=== PATIENT | female | born 1995 | race Caucasian/White ===

== ENCOUNTER 2020-02-26 23:43 | Emergency (ER) | payer MEDICAID ==
[~2020-02-26] VITALS: Ht 137.2 cm; Wt 103.4 kg
--- OUTSIDE RECORDS SUMMARY | ~2020-02-26 | XMS | Encounter Summary ---
Demographics + + + | Address | [address] | | | [place] [address] | + + + | Home Phone | | + + + | Preferred Language | Unknown | + + + | Marital Status | Single | + + + | Yarsanism Affiliation | Unknown | + + + | Race | Unknown | + + + | Ethnic Group | Unknown | + + + Author + + + | Author | [facility] | | | and [place] | + + + | Organization | [facility] | | | and [place] | + + + | Address | Unknown | + + + | Phone | Unavailable | + + + Support + + + + + | Name | Relationship | Address | Phone | + + + + + | Paty Grass | ECON | [address] | | | | | [place] | | | | | [address] | | + + + + + Care Team Providers + +------+ + | Care Catalyst Plant Supervisor Name | Role | Phone | + +------+ + | Angel Talamantes MD | PCP | | + +------+ + Reason for Visit + + + | Reason | Comments | + + + | Emesis During | | | | | + + + | Vaginal Bleed | | | | | + + + Encounter Details +--------+ + + + + | Date | Type | Department | Care Team | Description | +--------+ + + + + | 07/06/ | Emergency | [facility] Alvar[facility] Ste[facility] | Threatened | | 2018 | | [facility] | Hilton Kearney MD | in first trimester | | | | CENTER [address] | [address] | (Primary Dx) | | | | [place] | [place] | | | | | [address] | [id number] | | | | | [phone] | | | +--------+ + + + + Social History + + + +--------+------+ | Tobacco Use | Types | Packs/Day | Years | Date | | | | | Used | | + + + +--------+------+ | Current Some Day | Cigarettes | 0.5 | 3 | | | Smoker | | | | | + + + +--------+------+ + +---+---+---+ | Smokeless Tobacco: | | | | | Never Used | | | | + +---+---+---+ + + +---------+ + | Alcohol Use | Drinks/Week | oz/Week | Comments | + + +---------+ + | No | | | occasionally, not | | | | | since | + + +---------+ + + + + | Sex Assigned at | Date Recorded | | | | + + + | Not on file | | + + + + + + + | Job Start Date | Occupation | Industry | + + + + | Not on file | Not on file | Not on file | + + + + + + + + | Travel History | Travel Start | Travel End | + + + + + + | No recent travel history available. | + + documented as of this encounter Last Filed Vital Signs + + + + + | Vital Sign | Reading | Time Taken | Comments | + + + + + | Blood Pressure | 127/76 | 07/06/2018 7:59 PM | | | | | PDT | | + + + + + | Pulse | 90 | 07/06/2018 7:59 PM | | | | | PDT | | + + + + + | Temperature | 37.2 C (99 F) | 07/06/2018 7:59 PM | | | | | PDT | | + + + + + | Respiratory Rate | 16 | 07/06/2018 7:59 PM | | | | | PDT | | + + + + + | Oxygen Saturation | 99% | 07/06/2018 7:59 PM | | | | | PDT | | + + + + + | Inhaled Oxygen | - | - | | | Concentration | | | | + + + + + | Weight | 98 kg (216 lb) | 07/06/2018 7:59 PM | | | | | PDT | | + + + + + | Height | 149.9 cm (4' 11") | 07/06/2018 7:59 PM | | | | | PDT | | + + + + + | Body Mass Index | 43.63 | 07/06/2018 7:59 PM | | | | | PDT | | + + + + + documented in this encounter Discharge Instructions Instructions Alvarado Steward MD - 07/06/2018Return for severe worsening vagina l bleeding. Return for severe abdominal pain and cramping. Please try to drink plenty flui ds and stay hydrated. documented in this encounter Medications at Time of Discharge + + + +---------+ + + | Medication | Sig | Dispensed | Refills | Start | End Date | | | | | | Date | | + + + +---------+ + + | FLUTICASONE | by Nasal route. | | 0 | | | | FUROATE NA | | | | | 9 | + + + +---------+ + + | ondansetron | Take 1 tablet by | 15 | 0 | 07/06/20 | | | (ZOFRAN ODT) 4 mg | mouth every 6 hours | tablet | | 18 | 9 | | disintegrating | as needed. | | | | | | tablet | | | | | | + + + +---------+ + + | vitamin | Take 1 tablet by | 90 | 3 | 06/24/20 | | | w/ferrous | mouth Daily. | tablet | | 18 | 9 | | fumarate-folic acid | | | | | | | ( PLUS) 27-1 | | | | | | | mg tablet | | | | | | + + + +---------+ + + documented as of this encounter Plan of Treatment Not on filedocumented as of this encounter Visit Diagnoses + + | Diagnosis | + + | Threatened in first trimester - Primary Threatened , unspecified as | | to episode of care | + + documented in this encounter Administered Medications + + + +------+------+------+ | Medication Order | MAR | Action | Dose | Rate | Site | | | Action | Date | | | | + + + +------+------+------+ | ondansetron (ZOFRAN ODT) | Dispense | 07/06/20 | 4 mg | | | | disintegrating tablet (ED | to Home | 18 8:56 | | | | | homepack) 4 mg 4 mg, Oral, EVERY | | PM PDT | | | | | 6 HOURS PRN, Nausea, Vomiting, | | | | | | | Starting 07/06/18 at 2053, | | | | | | | Dispense for home use., | | | | | | + + + +------+------+------+ +---+---+ | | | +---+---+ documented in this encounter
--- OUTSIDE RECORDS SUMMARY | ~2020-02-26 | XMS | Encounter Summary ---
Demographics + + + | Address | [address] | | | [place] [address] | + + + | Home Phone | | + + + | Preferred Language | Unknown | + + + | Marital Status | Single | + + + | Confucianist Affiliation | Unknown | + + + | Race | Unknown | + + + | Ethnic Group | Unknown | + + + Author + + + | Author | [facility] | | | and [place] | + + + | Organization | [facility] | | | and [place] | + + + | Address | Unknown | + + + | Phone | Unavailable | + + + Support + + + + + | Name | Relationship | Address | Phone | + + + + + | Paty Grass | ECON | [address] | | | | | [place] | | | | | [address] | | + + + + + Care Team Providers + +------+ + | Care Salon Receptionist Name | Role | Phone | + +------+ + | No, Physician | PCP | Unavailable | + +------+ + Reason for Visit Auth/Cert +--------+--------+ + + + + | Status | Reason | Specialty | Diagnoses / | Referred By | Referred To | | | | | Procedures | Contact | Contact | +--------+--------+ + + + + | Closed | | | Diagnoses | | [facility] | | | | | Chronic | | [address] | | | | | tonsillitis | | [address] | | | | | Chronic | | [place], | | | | | tonsillitis | | [place] [address] | | | | | Procedures | | Phone: | | | | | [place] REMOVAL | | | | | | | OF | | Fax: | | | | | TONSILS,12+ | | [phone] | | | | | Y/O | | | | | | | TONSILLECTOM | | | | | | | Y AND | | | | | | | ADENOIDECTOM | | | | | | | Y | | | +--------+--------+ + + + + Encounter Details +--------+ + + + + | Date | Type | Department | Care Team | Description | +--------+ + + + + | 05/15/ | Anesthesia | [facility] | Wicho Rodríguez | | | 2014 | Event | [facility] | MD [place] [address] | | | | | [address] | [address] [place] | | | | | [place], [place] | [address] | | | | | [address] | | | | | | | | | +--------+ + + + + Anesthesia Record + + + + + | Procedure Name | Responsible | Anesthesia Start | Anesthesia Stop Time | | | Anesthesiologist | Time | | + + + + + | Tonsillectomy (N/A | Wicho Rodríguez, | 05/15/15 0842 | 05/15/15 0946 | | Mouth) | MD | | | + + + + + +----+---+ + + | Da | T | Event | Comment | | te | i | | | | | m | | | | | e | | | +----+---+ + + | 07 | 0 | An Checkout | Pre-use anesthesia machine/equipment checkout. | | /2 | 8 | | | | 9/ | 3 | | | | 20 | 5 | | | | 15 | | | | +----+---+ + + | | 0 | An Start | Reassessment prior to anesthesia induction/procedure. | | | 8 | | | | | 4 | | | | | 2 | | | +----+---+ + + | | 0 | an irma now | | | | 8 | | | | | 4 | | | | | 5 | | | +----+---+ + + | | 0 | AN | Per surgeon request | | | 8 | Antibiotic | | | | 4 | declined | | | | 6 | | | +----+---+ + + | | 0 | Preoxygenat | | | | 8 | ed | | | | 5 | | | | | 1 | | | +----+---+ + + | | 0 | An RSI | | | | 8 | | | | | 5 | | | | | 3 | | | +----+---+ + + | | 0 | An | | | | 8 | Intubation | | | | 5 | | | | | 4 | | | +----+---+ + + | | 0 | Pre-Procedu | | | | 8 | ral Timeout | | | | 5 | Completed | | | | 8 | | | +----+---+ + + | | 0 | an irma now | Begin | | | 8 | | | | | 5 | | | | | 9 | | | +----+---+ + + | | 0 | | | | | 9 | | | | | 2 | | | | | 3 | | | +----+---+ + + | | 0 | Oropharynx | | | | 9 | Suctioned | | | | 3 | | | | | 6 | | | +----+---+ + + | | 0 | Extubated | | | | 9 | Deep | | | | 3 | | | | | 7 | | | +----+---+ + + | | 0 | an irma now | PACU | | | 9 | | | | | 4 | | | | | 0 | | | +----+---+ + + | | 0 | An Stop | Patient handed off to recovery nurse. | | | 4 | | | | | 6 | | | +----+---+ + + +------+ | Meds | +------+ + +---------+ | Name | Total | + +---------+ | propofol | 200 mg | + +---------+ | fentaNYL | 100 mcg | + +---------+ | succinylcholine | 100 mg | + +---------+ | ondansetron | 4 mg | + +---------+ | dexamethasone | 8 mg | + +---------+ | midazolam | 2 mg | + +---------+ | meperidine | 25 mg | + +---------+ | lactated ringers (LR) infusion | 500 mL | + +---------+ | lactated ringers (LR) infusion | 400 mL | + +---------+ + + | Name | + + | N2O Flow Rate (L/Min) | + + | O2 Flow Rate (L/Min) | + + | Insp O2 | + + | Exp SEV | + + | Air Flow Rate (L/Min) | + + + + | No blood administrations on file. | + + +--------+ + + + | Type | Details | Placement | Removal | +--------+ + + + | [READ | 05/15/15; 827; healing within | 05/15/15 08 by | 05/15/15 1145 by | | ONLY] | expectations; 05/15/15; 1145 | Anish Sanchez RN | Dacia Stephenson RN | | | | | | | Periph | | | | | eral | | | | | IV - | | | | | Single | | | | | Lumen | | | | | | | | | +--------+ + + + | Airway | Placement Date: 05/15/15; | 05/15/15853 by | 05/15/15 09 by | | | Placement Time: 08; Mask | Wicho P Skaarup, | Wicho P Skaarup, | | | Ventilation: EZ; Successful | MD | MD | | | Technique: video scope (Farzaneh | | | | | Laryngoscope); Laryngoscope Blade | | | | | Size: 3; Attempts: 1; Airway | | | | | Type: endotracheal, oral, cuffed; | | | | | Size: 6; Airway Tube Secured At: | | | | | 0.18 m (7.09"); Tube Reference | | | | | Point: lip; Trauma: none; Other | | | | | Equipment: stylette; Placement | | | | | Check: verified by capnography, | | | | | verified by auscultation; Placed | | | | | By: Anesthesiologist; Removal: | | | | | per protocol; Removal Date: | | | | | 05/15/15; Removal Time: 936 | | | +--------+ + + + | Read | 05/15/15; 910; throat; 01/10/19 | 05/15/15 0911 by | 01/10/19 1342 by | | only - | (Completed/Removed by Utility); | Julisa Cuevas RN | User Epic | | | 1342 (Completed/Removed by | | | | [employer]isi | Utility) | | | | on | | | | +--------+ + + + documented in this encounter Social History + +-------+ +--------+------+ | Tobacco Use | Types | Packs/Day | Years | Date | | | | | Used | | + +-------+ +--------+------+ | Never Assessed | | | | | + +-------+ +--------+------+ + + + | Sex Assigned at [...] filedocumented as of this encounter Visit Diagnoses Not on filedocumented in this encounter Administered Medications + +--------+ +------+------+------+ | Medication Order | MAR | Action | Dose | Rate | Site | | | Action | Date | | | | + +--------+ +------+------+------+ | dexamethasone (DECADRON) 10 | Given | 05/15/20 | 8 mg | | | | mg/mL injection Intravenous, | | 15 8:46 | | | | | PRN, Starting Wed05/15/15 at | | AM PDT | | | | | 0846, Anesthesia Intra-op | | | | | | + +--------+ +------+------+------+ +---+---+ | | | +---+---+ + +-------+ +---------+---+---+ | fentaNYL injection | Given | 05/15/20 | 100 mcg | | | | Intravenous, PRN, Pain, Starting | | 15 8:46 | | | | | Wed05/15/15 at 0846, Anesthesia | | AM PDT | | | | | Intra-op | | | | | | + +-------+ +---------+---+---+ +---+---+ | | | +---+---+ + +---------+ +---+---+---+ | lactated ringers (LR) infusion | New Bag | 05/15/20 | | | | | at 10-100 mL/hr, Intravenous, | | 15 8:45 | | | | | CONTINUOUS, Starting 05/15/15 | | AM PDT | | | | | at 0815, TKO., Pre-op | | | | | | + +---------+ +---+---+---+ +---+---+ | | | +---+---+ + +-------+ +-------+---+---+ | meperidine (DEMEROL) 25 mg/mL | Given | 05/15/20 | 25 mg | | | | injection Intravenous, PRN, | | 15 9:20 | | | | | Pain, Starting 05/15/15 at | | AM PDT | | | | | 0920, Anesthesia Intra-op | | | | | | + +-------+ +-------+---+---+ +---+---+ | | | +---+---+ + +-------+ +------+---+---+ | midazolam (VERSED) 1 mg/mL | Given | 05/15/20 | 2 mg | | | | injection Intravenous, PRN, | | 15 8:46 | | | | | Anxiety, Starting Wed05/15/15 at | | AM PDT | | | | | 0846, Anesthesia Intra-op | | | | | | + +-------+ +------+---+---+ +---+---+ | | | +---+---+ + +-------+ +------+---+---+ | ondansetron (ZOFRAN) injection | Given | 05/15/20 | 4 mg | | | | Intravenous, PRN, Nausea, | | 15 8:46 | | | | | Vomiting, Starting Wed05/15/15 at | | AM PDT | | | | | 0846, Anesthesia Intra-op | | | | | | + +-------+ +------+---+---+ +---+---+ | | | +---+---+ + +-------+ +--------+---+---+ | propofol (DIPRIVAN) injection | Given | 05/15/20 | 200 mg | | | | Intravenous, PRN, Starting Wed | | 15 8:53 | | | | | 05/15/15 at 0853, Anesthesia | | AM PDT | | | | | Intra-op | | | | | | + +-------+ +--------+---+---+ +---+---+ | | | +---+---+ + +-------+ +--------+---+---+ | succinylcholine (ANECTINE) | Given | 05/15/20 | 100 mg | | | | injection Intravenous, PRN, | | 15 8:53 | | | | | Starting 05/15/15 at 0853, | | AM PDT | | | | | Anesthesia Intra-op | | | | | | + +-------+ +--------+---+---+ +---+---+ | | | +---+---+ documented in this encounter
--- OUTSIDE RECORDS SUMMARY | ~2020-02-26 | XMS | Encounter Summary ---
Demographics + + + | Address | [address] | | | [place] [address] | + + + | Home Phone | | + + + | Preferred Language | Unknown | + + + | Marital Status | Single | + + + | Scientologist Affiliation | Unknown | + + + | Race | Unknown | + + + | Ethnic Group | Unknown | + + + Author + + + | Author | [facility] | | | and [place] | + + + | Organization | [facility] | | | and [place] | + + + | Address | Unknown | + + + | Phone | Unavailable | + + + Support + + + + + | Name | Relationship | Address | Phone | + + + + + | Paty Grass | ECON | [address] | | | | | [place] | | | | | [address] | | + + + + + Care Team Providers + +------+ + | Care Lead Developer Name | Role | Phone | + +------+ + | No, Physician | PCP | Unavailable | + +------+ + Reason for Visit + + + | Reason | Comments | + + + | Suicidal | | + + + Encounter Details +--------+ + + + + | Date | Type | Department | Care Team | Description | +--------+ + + + + | 03/31/ | Emergency | [facility] | [facility] | Suicidal ideation | | 2018 | | [facility] | [facility] [address] | (Primary Dx); | | | | CENTER [address] | [address] [place] | Depression, | | | | [place], [place] | [place] [address] | unspecified | | | | [address] | [phone] | depression type | | | | [phone] | | | +--------+ + + + + Social History + + + +--------+------+ | Tobacco Use | Types | Packs/Day | Years | Date | | | | | Used | | + + + +--------+------+ | Current Some Day | Cigarettes | 1 | 3 | | | Smoker | | | | | + + + +--------+------+ + +---+---+---+ | Smokeless Tobacco: | | | | | Never Used | | | | + +---+---+---+ + + +---------+ + | Alcohol Use | Drinks/Week | oz/Week | Comments | + + +---------+ + | Yes | | | occasionally | + + +---------+ + + + [...] + + + | Blood Pressure | 123/78 | 03/31/2018 7:59 PM | | | | | PDT | | + + + + + | Pulse | 78 | 03/31/2018 7:59 PM | | | | | PDT | | + + + + + | Temperature | 37.2 C (98.9 F) | 03/31/2018 7:59 PM | | | | | PDT | | + + + + + | Respiratory Rate | 16 | 03/31/2018 7:59 PM | | | | | PDT | | + + + + + | Oxygen Saturation | 100% | 03/31/2018 7:59 PM | | | | | PDT | | + + + + + | Inhaled Oxygen | - | - | | | Concentration | | | | + + + + + | Weight | - | - | | + + + + + | Height | - | - | | + + + + + | Body Mass Index | - | - | | + + + + + documented in this encounter Discharge Instructions AttachmentsThe following attachments cannot be sent through Care Everywhere.Depression, Wha t Can Cause (Eritrean)Suicide, Recognizing Warning Signs in Yourself ([place]rit[place]an)Suicide, Recogn izing Warning Signs in Others ([place]an)documented in this encounter Medications at Time of Discharge + + + +---------+--------+ + | Medication | Sig | Dispensed | Refills | Start | End Date | | | | | | Date | | + + + +---------+--------+ + | metoprolol | Take 25 mg by mouth | | 0 | | | | tartrate (LOPRESSOR) | Daily. | | | | 8 | | 50 mg tablet | | | | | | + + + +---------+--------+ + | omeprazole | Take 20 mg by mouth | | 0 | | | | (PRILOSEC) 20 mg | every morning | | | | 8 | | capsule | (before breakfast). | | | | | + + + +---------+--------+ + | oxyCODONE | Take 5 mg by mouth | | 0 | | | | (ROXICODONE) 5 mg | every 4 hours as | | | | 8 | | tablet | needed for Pain. | | | | | + + + +---------+--------+ + | venlafaxine | Take 150 mg by mouth | | 0 | | | | (EFFEXOR XR) 150 mg | daily (with | | | | 8 | | 24 hr tablet | breakfast). | | | | | + + + +---------+--------+ + documented as of this encounter Plan of Treatment Not on filedocumented as of this encounter Procedures + +--------+ + + + | Procedure Name | Priori | Date/Time | Associated Diagnosis | Comments | | | ty | | | | + +--------+ + + + | EXTRA TRACY MANCINI | Routin | 03/31/2018 | | Results for this | | TUBE | e | 8:54 PM | | procedure are in the | | | | PDT | | results section. | + +--------+ + + + | CBC WITH | STAT | 03/31/2018 | | Results for this | | DIFFERENTIAL | | 8:54 PM | | procedure are in the | | | | PDT | | results section. | + +--------+ + + + | , SERUM, | STAT | 03/31/2018 | | Results for this | | QUAL | | 8:54 PM | | procedure are in the | | | | PDT | | results section. | + +--------+ + + + | TSH | STAT | 03/31/2018 | | Results for this | | | | 8:54 PM | | procedure are in the | | | | PDT | | results section. | + +--------+ + + + | ALCOHOL | STAT | 03/31/2018 | | Results for this | | | | 8:54 PM | | procedure are in the | | | | PDT | | results section. | + +--------+ + + + | ACETAMINOPHEN LEVEL | STAT | 03/31/2018 | | Results for this | | | | 8:54 PM | | procedure are in the | | | | PDT | | results section. | + +--------+ + + + | SALICYLATE LEVEL | STAT | 03/31/2018 | | Results for this | | | | 8:54 PM | | procedure are in the | | | | PDT | | results section. | + +--------+ + + + | COMPREHENSIVE | STAT | 03/31/2018 | | Results for this | | METABOLIC PANEL | | 8:54 PM | | procedure are in the | | | | PDT | | results section. | + +--------+ + + + | URINALYSIS WITH | STAT | 03/31/2018 | | Results for this | | MICROSCOPIC WITH | | 8:47 PM | | procedure are in the | | CULTURE IF INDICATED | | PDT | | results section. | + +--------+ + + + | DRUGS OF ABUSE, | STAT | 03/31/2018 | | Results for this | | SCREEN, URINE | | 8:47 PM | | procedure are in the | | | | PDT | | results section. | + +--------+ + + + documented in this encounter Results Extra Lavender Top Tube (03/31/2018 8:54 PM PDT) + +-------+ + + + | Component | Value | Ref Range | Performed | Pathologist | | | | | At | Signature | + +-------+ + + + | Extra | Done | | [facility] | | | Lavender | | | [facility] | | | Top Tube | | | MEDICAL | | | | | | CENTER - | | | | | | LABORATORY | | + +-------+ + + + + + | Specimen | + + | Blood | + + + + + + + | Performing | Address | City/State/Zipcode | Phone Number | | Organization | | | | + + + + + | [facility] | [address] | [place] | [phone] | | [facility] | | [address] | | | - LABORATORY | | | | + + + + + , Serum, Qual (03/31/2018 8:54 PM PDT) + + + + + + | Component | Value | Ref Range | Performed | Pathologist | | | | | At | Signature | + + + + + + | hCG Screen, | Negative | Negative | [facility] | | | Serum | | | [facility] | | | | | | MEDICAL | | | | | | CENTER - | | | | | | LABORATORY | | + + + + + + + + | Specimen | + + | Blood | + + + + + + + | Performing | Address | City/State/Zipcode | Phone Number | | Organization | | | | + + + + + | [facility] | [address] | [place] | [phone] | | [facility] | | [address] | | | - LABORATORY | | | | + + + + + TSH (03/31/2018 8:54 PM PDT) + + + + + + | Component | Value | Ref Range | Performed | Pathologist | | | | | At | Signature | + + + + + + | TSH | 1.45Comment: This is a | 0.45 - 5.33 | [facility] | | | | third generation TSH | uIU/mL | [facility] | | | | test. | | MEDICAL | | | | | | CENTER - | | | | | | LABORATORY | | + + + + + + + + | Specimen | + + | Blood | + + + + + + + | Performing | Address | City/State/Zipcode | Phone Number | | Organization | | | | + + + + + | [facility] | [address] | [place] | [phone] | | [facility] | | [address] | | | - LABORATORY | | | | + + + + + Ethanol (03/31/2018 8:54 PM PDT) + +-------+ + + + | Component | Value | Ref Range | Performed | Pathologist | | | | | At | Signature | + +-------+ + + + | ALCOHOL, | <5 | <400 mg/dL | [facility] | | | SERUM/PLASM | | | [facility] | | | A | | | MEDICAL | | | | | | CENTER - | | | | | | LABORATORY | | + +-------+ + + + + + | Specimen | + + | Blood | + + + + + + + | Performing | Address | City/State/Zipcode | Phone Number | | Organization | | | | + + + + + | [facility] | [address] | [place] | [phone] | | [facility] | | [address] | | | - LABORATORY | | | | + + + + + Salicylate Level (03/31/2018 8:54 PM PDT) + +-------+ + + + | Component | Value | Ref Range | Performed | Pathologist | | | | | At | Signature | + +-------+ + + + | Salicylate | <4.0 | <30.0 mg/dL | [facility] | | | Level | | | [facility] | | | | | | MEDICAL | | | | | | CENTER - | | | | | | LABORATORY | | + +-------+ + + + + + | Specimen | + + | Blood | + + + + + + + | Performing | Address | City/State/Zipcode | Phone Number | | Organization | | | | + + + + + | [facility] | [address] | [place] | [phone] | | [facility] | | [address] | | | - LABORATORY | | | | + + + + + Acetaminophen Level (03/31/2018 8:54 PM PDT) + +-------+ + + + | Component | Value | Ref Range | Performed | Pathologist | | | | | At | Signature | + +-------+ + + + | Acetaminoph | <10 | <10 ug/mL | [facility] | | | en Level | | | [facility] | | | | | | MEDICAL | | | | | | CENTER - | | | | | | LABORATORY | | + +-------+ + + + + + | Specimen | + + | Blood | + + + + + + + | Performing | Address | City/State/Zipcode | Phone Number | | Organization | | | | + + + + + | [facility] | [address] | [place] | [phone] | | [facility] | | [address] | | | - LABORATORY | | | | + + + + + Comprehensive Metabolic Panel (03/31/2018 8:54 PM PDT) + + + + + + | Component | Value | Ref Range | Performed | Pathologist | | | | | At | Signature | + + + + + + | Na | 139 | 136 - 149 | [facility] | | | | | mmol/L | [facility] | | | | | | MEDICAL | | | | | | CENTER - | | | | | | LABORATORY | | + + + + + + | K | 3.9 | 3.5 - 5.1 | [facility] | | | | | mmol/L | [facility] | | | | | | MEDICAL | | | | | | CENTER - | | | | | | LABORATORY | | + + + + + + | Cl | 105 | 98 - 109 mmol/L | [facility] | | | | | | [facility] | | | | | | MEDICAL | | | | | | CENTER - | | | | | | LABORATORY | | + + + + + + | CO2 | 24 | 24 - 31 mmol/L | [facility] | | | | | | [facility] | | | | | | MEDICAL | | | | | | CENTER - | | | | | | LABORATORY | | + + + + + + | Anion Gap | 10 | 3 - 16 mmol/L | [facility] | | | | | | [facility] | | | | | | MEDICAL | | | | | | CENTER - | | | | | | LABORATORY | | + + + + + + | Glucose | 86 | 70 - 109 mg/dL | [facility] | | | | | | [facility] | | | | | | MEDICAL | | | | | | CENTER - | | | | | | LABORATORY | | + + + + + + | BUN | 7 | 7 - 18 mg/dL | [facility] | | | | | | [facility] | | | | | | MEDICAL | | | | | | CENTER - | | | | | | LABORATORY | | + + + + + + | Creatinine | 0.73 | 0.60 - 1.30 | [facility] | | | | | mg/dL | [facility] | | | | | | MEDICAL | | | | | | CENTER - | | | | | | LABORATORY | | + + + + + + | eGFR if not | >60Comment: GLOMERULAR | >=60 | [facility] | | | | FILTRATION | mL/min/1.73m2 | [facility] | | | NAURUAN | RATE,ESTIMATED | | MEDICAL | | | | mL/min/1.61t9Yxwl than | | CENTER - | | | | 60 Chronic kidney | | LABORATORY | | | | disease,if found over a | | | | | | 3-month period.Less than | | | | | | 15 Kidney failureFor | | | | | | | | | | | | Americans,multiply the | | | | | | calculated GFR by 1.21. | | | | | | | | | | + + + + + + | Calcium | 9.3 | 8.3 - 10.5 | [facility] | | | | | mg/dL | [facility] | | | | | | MEDICAL | | | | | | CENTER - | | | | | | LABORATORY | | + + + + + + | Albumin | 4.1 | 3.2 - 5.0 g/dL | [facility] | | | | | | [facility] | | | | | | MEDICAL | | | | | | CENTER - | | | | | | LABORATORY | | + + + + + + | Bilirubin | 0.7Comment: This is an | 0.1 - 1.5 mg/dL | [facility] | | | Total | appended report. These | | [facility] | | | | results have been | | MEDICAL | | | | appended to a previously | | CENTER - | | | | preliminary verified | | LABORATORY | | | | report. | | | | + + + + + + | Total | 7.6 | 6.0 - 7.8 g/dL | [facility] | | | Protein | | | [facility] | | | | | | MEDICAL | | | | | | CENTER - | | | | | | LABORATORY | | + + + + + + | AST | 28Comment: This is an | 10 - 42 U/L | [facility] | | | | appended report. These | | [facility] | | | | results have been | | MEDICAL | | | | appended to a previously | | CENTER - | | | | preliminary verified | | LABORATORY | | | | report. | | | | + + + + + + | ALT | 33Comment: This is an | 6 - 45 U/L | [facility] | | | | appended report. These | | [facility] | | | | results have been | | MEDICAL | | | | appended to a previously | | CENTER - | | | | preliminary verified | | LABORATORY | | | | report. | | | | + + + + + + | Alkaline | 96Comment: This is an | 40 - 110 U/L | [facility] | | | Phosphatase | appended report. These | | [facility] | | | | results have been | | MEDICAL | | | | appended to a previously | | CENTER - | | | | preliminary verified | | LABORATORY | | | | report. | | | | + + + + + + | Globulin | 3.5 | 2.1 - 3.8 g/dL | [facility] | | | | | | [facility] | | | | | | MEDICAL | | | | | | CENTER - | | | | | | LABORATORY | | + + + + + + | Albumin/Kristel | 1.2 | 0.8 - 2.0 | [facility] | | | bulin Ratio | | | [facility] | | | | | | MEDICAL | | | | | | CENTER - | | | | | | LABORATORY | | + + + + + + | BUN/Creatin | 9.6 | | [facility] | | | ine Ratio | | | [facility] | | | | | | MEDICAL | | | | | | CENTER - | | | | | | LABORATORY | | + + + + + + + + | Specimen | + + | Blood | + + + + + + + | Performing | Address | City/State/Zipcode | Phone Number | | Organization | | | | + + + + + | [facility] | [address] | [place] | [phone] | | [facility] | | [address] | | | - LABORATORY | | | | + + + + + CBC with Differential (03/31/2018 8:54 PM PDT) + + + + + + | Component | Value | Ref Range | Performed | Pathologist | | | | | At | Signature | + + + + + + | WBC | 14.0 (H) | 4.0 - 11.0 K/uL | [facility] | | | | | | [facility] | | | | | | MEDICAL | | | | | | CENTER - | | | | | | LABORATORY | | + + + + + + | RBC | 5.45 (H) | 3.70 - 5.20 | [facility] | | | | | M/uL | [facility] | | | | | | MEDICAL | | | | | | CENTER - | | | | | | LABORATORY | | + + + + + + | Hemoglobin | 15.2 | 11.5 - 16.0 | [facility] | | | | | g/dL | [facility] | | | | | | MEDICAL | | | | | | CENTER - | | | | | | LABORATORY | | + + + + + + | Hematocrit | 45.4 | 34.0 - 47.0 % | [facility] | | | | | | [facility] | | | | | | MEDICAL | | | | | | CENTER - | | | | | | LABORATORY | | + + + + + + | MCV | 83.3 | 83.0 - 101.0 fL | [facility] | | | | | | [facility] | | | | | | MEDICAL | | | | | | CENTER - | | | | | | LABORATORY | | + + + + + + | MCH | 27.9 (L) | 28.0 - 35.0 pg | [facility] | | | | | | [facility] | | | | | | MEDICAL | | | | | | CENTER - | | | | | | LABORATORY | | + + + + + + | MCHC | 33.5 | 32.0 - 36.0 | [facility] | | | | | g/dL | [facility] | | | | | | MEDICAL | | | | | | CENTER - | | | | | | LABORATORY | | + + + + + + | RDW-CV | 15.2 (H) | <15.0 % | [facility] | | | | | | [facility] | | | | | | MEDICAL | | | | | | CENTER - | | | | | | LABORATORY | | + + + + + + | Platelet | 379 | 140 - 440 K/uL | [facility] | | | Count | | | [facility] | | | | | | MEDICAL | | | | | | CENTER - | | | | | | LABORATORY | | + + + + + + | MPV | 7.6 | fL | [facility] | | | | | | [facility] | | | [facility] | | MEDICAL | | | | | | CENTER - | | | | | | LABORATORY | | + + + + + + | % | 69.0 | 45.0 - 82.0 % | [facility] | | | Neutrophils | | | [facility] | | | | | | MEDICAL | | | | | | CENTER - | | | | | | LABORATORY | | + + + + + + | % | 20.0 | 20.0 - 45.0 % | [facility] | | | Lymphocytes | | | [facility] | | | | | | MEDICAL | | | | | | CENTER - | | | | | | LABORATORY | | + + + + + + | % Monocytes | 6.0 | 4.0 - 12.0 % | [facility] | | | | | | [facility] | | | | | | MEDICAL | | | | | | CENTER - | | | | | | LABORATORY | | + + + + + + | % | 4.3 | 0.0 - 5.0 % | [facility] | | | Eosinophils | | | [facility] | | | | | | MEDICAL | | | | | | CENTER - | | | | | | LABORATORY | | + + + + + + | % Basophils | 0.7 | 0.0 - 1.0 % | [facility] | | | | | | [facility] | | | | | | MEDICAL | | | | | | CENTER - | | | | | | LABORATORY | | + + + + + + | Absolute | 9.70 (H) | 1.80 - 8.50 | [facility] | | | Neutrophils | | K/uL | [facility] | | | | | | MEDICAL | | | | | | CENTER - | | | | | | LABORATORY | | + + + + + + | Absolute | 2.80 | 0.60 - 3.20 | [facility] | | | Lymphocytes | | K/uL | [facility] | | | | | | MEDICAL | | | | | | CENTER - | | | | | | LABORATORY | | + + + + + + | Absolute | 0.80 | 0.00 - 1.00 | [facility] | | | Monocytes | | K/uL | [facility] | | | | | | MEDICAL | | | | | | CENTER - | | | | | | LABORATORY | | + + + + + + | Absolute | 0.60 (H) | 0.00 - 0.40 | [facility] | | | Eosinophils | | K/uL | [facility] | | | | | | MEDICAL | | | | | | CENTER - | | | | | | LABORATORY | | + + + + + + | Absolute | 0.10 | 0.00 - 0.10 | [facility] | | | Basophils | | K/uL | [facility] | | | | | | MEDICAL | | | | | | CENTER - | | | | | | LABORATORY | | + + + + + + + + | Specimen | + + | Blood | + + + + + + + | Performing | Address | City/State/Zipcode | Phone Number | | Organization | | | | + + + + + | [facility] | [address] | [place] | [phone] | | [facility] | | [address] | | | - LABORATORY | | | | + + + + + Drugs of Abuse, Screen, Urine (03/31/2018 8:47 PM PDT) + + + + + + | Component | Value | Ref Range | Performed | Pathologist | | | | | At | Signature | + + + + + + | Amphetamine | Negative | Negative | [facility] | | | Screen, | | | [facility] | | | Urine | | | MEDICAL | | | | | | CENTER - | | | | | | LABORATORY | | + + + + + + | Barbiturate | Negative | Negative | [facility] | | | s Screen, | | | [facility] | | | Urine | | | MEDICAL | | | | | | CENTER - | | | | | | LABORATORY | | + + + + + + | Benzodiazep | Negative | Negative | [facility] | | | sintia | | | [facility] | | | Screen, | | | MEDICAL | | | Urine | | | CENTER - | | | | | | LABORATORY | | + + + + + + | Cannabinoid | Positive (A) | Negative | [facility] | | | s Screen, | | | [facility] | | | Urine | | | MEDICAL | | | | | | CENTER - | | | | | | LABORATORY | | + + + + + + | Cocaine | Negative | Negative | [facility] | | | Screen, | | | [facility] | | | Urine | | | MEDICAL | | | | | | CENTER - | | | | | | LABORATORY | | + + + + + + | Methadone | Negative | Negative | [facility] | | | Screen, | | | [facility] | | | Urine | | | MEDICAL | | | | | | CENTER - | | | | | | LABORATORY | | + + + + + + | Opiates | Negative | Negative | [facility] | | | Screen, | | | [facility] | | | Urine | | | MEDICAL | | | | | | CENTER - | | | | | | LABORATORY | | + + + + + + + + | Specimen | + + | Urine - Urine | | specimen obtained by | | clean catch | | procedure (specimen) | + + + + + + + | Performing | Address | City/State/Zipcode | Phone Number | | Organization | | | | + + + + + | [facility] | [address] | [place] | [phone] | | [facility] | | [address] | | | - LABORATORY | | | | + + + + + Urinalysis with Microscopic with Culture if Indicated (03/31/2018 8:47 PM PDT) + + + + + + | Component | Value | Ref Range | Performed | Pathologist | | | | | At | Signature | + + + + + + | Color, | Yellow | Light Yellow, | [facility] | | | Urine | | Yellow, Straw | [facility] | | | | | | MEDICAL | | | | | | CENTER - | | | | | | LABORATORY | | + + + + + + | Clarity | Hazy (A) | Clear | [facility] | | | | | | [facility] | | | | | | MEDICAL | | | | | | CENTER - | | | | | | LABORATORY | | + + + + + + | pH, Urine | 6.0 | 5.0 - 8.0 | [facility] | | | | | | [facility] | | | | | | MEDICAL | | | | | | CENTER - | | | | | | LABORATORY | | + + + + + + | Specific | 1.024 | 1.001 - 1.030 | [facility] | | | Ram[place], | | | [facility] | | | Urine | | | MEDICAL | | | | | | CENTER - | | | | | | LABORATORY | | + + + + + + | Protein, | Negative | Negative | [facility] | | | Urine | | | [facility] | | | | | | MEDICAL | | | | | | CENTER - | | | | | | LABORATORY | | + + + + + + | Blood, | Negative | Negative | [facility] | | | Urine | | | [facility] | | | | | | MEDICAL | | | | | | CENTER - | | | | | | LABORATORY | | + + + + + + | Glucose, | Negative | Negative | [facility] | | | Urine | | | [facility] | | | | | | MEDICAL | | | | | | CENTER - | | | | | | LABORATORY | | + + + + + + | Ketones, | Trace (A) | Negative | [facility] | | | Urine | | | [facility] | | | | | | MEDICAL | | | | | | CENTER - | | | | | | LABORATORY | | + + + + + + | Bilirubin, | Negative | Negative | [facility] | | | Urine | | | [facility] | | | | | | MEDICAL | | | | | | CENTER - | | | | | | LABORATORY | | + + + + + + | Nitrite, | Negative | Negative | [facility] | | | Urine | | | [facility] | | | | | | MEDICAL | | | | | | CENTER - | | | | | | LABORATORY | | + + + + + + | Leukocyte | Negative | Negative | [facility] | | | Esterase, | | | [facility] | | | Urine | | | MEDICAL | | | | | | CENTER - | | | | | | LABORATORY | | + + + + + + | Urobilinoge | 2.0 mg/dL (A) | 0.2 mg/dL, 1.0 | [facility] | | | n, Urine | | mg/dL, Negative | [facility] | | | | | | MEDICAL | | | | | | CENTER - | | | | | | LABORATORY | | + + + + + + | White Blood | 2-5 (A) | 0 - 2 /HPF | [facility] | | | Cells, | | | [facility] | | | Urine | | | MEDICAL | | | | | | CENTER - | | | | | | LABORATORY | | + + + + + + | Red Blood | 0-2 | 0 - 2 /HPF | [facility] | | | Cells, | | | [facility] | | | Urine | | | MEDICAL | | | | | | CENTER - | | | | | | LABORATORY | | + + + + + + | Squamous | 50-100 (A) | 0 - 2 /LPF | [facility] | | | Epithelial | | | [facility] | | | Cells, | | | MEDICAL | | | Urine | | | CENTER - | | | | | | LABORATORY | | + + + + + + | Bacteria, | 1+ (A) | Negative /HPF | [facility] | | | Urine | | | [facility] | | | | | | MEDICAL | | | | | | CENTER - | | | | | | LABORATORY | | + + + + + + | Mucus, | Present (A) | Negative /LPF | [facility] | | | Urine | | | [facility] | | | | | | MEDICAL | | | | | | CENTER - | | | | | | LABORATORY | | + + + + + + | Urine | Urine Culture Not | | [facility] | | | Comment | Indicated | | [facility] | | | | | | MEDICAL | | | | | | CENTER - | | | | | | LABORATORY | | + + + + + + + + | Specimen | + + | Urine - Urine | | specimen obtained by | | clean catch | | procedure (specimen) | + + + + + + + | Performing | Address | City/State/Zipcode | Phone Number | | Organization | | | | + + + + + | [facility] | [address] | [place] | [phone] | | [facility] | | [address] | | | - LABORATORY | | | | + + + + + documented in this encounter Visit Diagnoses + + | Diagnosis | + + | Suicidal ideation - Primary | + + | Depression, unspecified depression type | + + documented in this encounter"
--- OUTSIDE RECORDS SUMMARY | ~2020-02-26 | XMS | Encounter Summary ---
Demographics + + + | Address | [address] | | | [place] [address] | + + + | Home Phone | | + + + | Preferred Language | Unknown | + + + | Marital Status | Single | + + + | Amish Affiliation | Unknown | + + + | Race | Unknown | + + + | Ethnic Group | Unknown | + + + Author + + + | Author | [facility] | | | and [place] | + + + | Organization | [facility] | | | and [place] | + + + | Address | Unknown | + + + | Phone | Unavailable | + + + Support + + + + + | Name | Relationship | Address | Phone | + + + + + | Paty Grass | ECON | [address] | | | | | [address] | | | | | [address] | | + + + + + Care Team Providers + +------+ + | Care Tool Keeper Name | Role | Phone | + +------+ + | Angel Talamantes MD | PCP | | + +------+ + Reason for Visit + + + | Reason | Comments | + + + | Back Pain | | + + + | Urinary Pain | | + + + Encounter Details +--------+ + + + + | Date | Type | Department | Care Team | Description | +--------+ + + + + | 01/21/ | Emergency | [facility] | Hilton Donaldson | Dysuria (Primary | | 2014 - | | [facility] | MD Torsten [address] | Dx); Chronic back | | | | CENTER [address] | [address] [place] | pain | | 01/22/ | | [place], [place] | [place] [address] | | | 2014 | | [address] | [phone] | | | | | [phone] | | | +--------+ + + + + Social History + +-------+ +--------+------+ | Tobacco Use | Types | Packs/Day | Years | Date | | | | | Used | | + +-------+ +--------+------+ | Current Some Day | | 0.1 | | | | Smoker | | | | | + +-------+ +--------+------+ + +---+---+---+ | Smokeless Tobacco: | [...] + + + | Blood Pressure | 126/83 | 01/21/2015 10:49 PM | | | | | PDT | | + + + + + | Pulse | 89 | 01/21/2015 10:49 PM | | | | | PDT | | + + + + + | Temperature | 37.3 C (99.1 F) | 01/21/2015 10:49 PM | | | | | PDT | | + + + + + | Respiratory Rate | 16 | 01/21/2015 10:49 PM | | | | | PDT | | + + + + + | Oxygen Saturation | 99% | 01/21/2015 10:49 PM | | | | | PDT | | + + + + + | Inhaled Oxygen | - | - | | | Concentration | | | | + + + + + | Weight | 88.5 kg (195 lb) | 01/21/2015 10:49 PM | | | | | PDT | | + + + + + | Height | 147.3 cm (4' 9.99") | 01/21/2015 10:49 PM | | | | | PDT | | + + + + + | Body Mass Index | 40.77 | 01/21/2015 10:49 PM | | | | | PDT | | + + + + + documented in this encounter Discharge Instructions AttachmentsThe following attachments cannot be sent through Care Everywhere.BACK AND NECK GENERAL BHAVYA (AMHARIC)DYSURIA (AMHARIC)documented in this encounter Medications at Time of Discharge + + + +---------+ + + | Medication | Sig | Dispensed | Refills | Start | End Date | | | | | | Date | | + + + +---------+ + + | indomethacin | Take 1 capsule by | 20 | 0 | 01/22/20 | | | (INDOCIN) 25 mg | mouth 2 times daily | capsule | | 15 | 5 | | capsule | (with breakfast & | | | | | | | dinner). | | | | | + + + +---------+ + + documented as of this encounter Plan of Treatment Not on filedocumented as of this encounter Procedures + +--------+ + + + | Procedure Name | Priori | Date/Time | Associated Diagnosis | Comments | | | ty | | | | + +--------+ + + + | C. TRACHOMATIS AND | Routin | 01/22/2015 | | Results for this | | N. GONORRHOEAE, NAAT | e | 12:02 AM | | procedure are in the | | ([facility]) | | PDT | | results section. | + +--------+ + + + | XR LUMBAR SPINE 2 OR | STAT | 01/21/2015 | | Results for this | | 3 VW | | 11:36 PM | | procedure are in the | | | | PDT | | results section. | + +--------+ + + + | XR THORACIC SPINE 2 | STAT | 01/21/2015 | | Results for this | | VW | | 11:35 PM | | procedure are in the | | | | PDT | | results section. | + +--------+ + + + | POCT URINALYSIS, | STAT | 01/21/2015 | | Results for this | | AUTO WITH CONF | | 11:23 PM | | procedure are in the | | | | PDT | | results section. | + +--------+ + + + | POCT TEST, | STAT | 01/21/2015 | | Results for this | | URINE, QUAL | | 11:19 PM | | procedure are in the | | | | PDT | | results section. | + +--------+ + + + | ED INFORMATION | Routin | 01/21/2015 | | Results for this | | EXCHANGE | e | 10:10 PM | | procedure are in the | | | | PDT | | results section. | + +--------+ + + + documented in this encounter Results C. trachomatis and N. gonorrhoeae, NAAT ([facility]) (01/22/2015 12:02 AM PDT) + + + + + + | Component | Value | Ref Range | Performed | Pathologist | | | | | At | Signature | + + + + + + | SPECSOURCE | See CommentsComment: | | REFERENCE | | | | Urine, Clean Catch | | [facility] | | + + + + + + | Chlamydia | See CommentsComment: Not | NOTDET | REFERENCE | | | trachomatis | DetectedA result of Not | | [facility] | | | PCR | Detected does not rule | | | | | | out the presence of | | | | | | PCRinhibitors present in | | | | | | the specimen or levels | | | | | | of Chlamydia | | | | | | trachomatisbelow the | | | | | | limit of detection for | | | | | | this assay. | | | | + + + + + + | Neisseria | See CommentsComment: Not | NOTDET | REFERENCE | | | gonorrhoeae | DetectedA result of Not | | [facility] | | | PCR | Detected does not rule | | | | | | out the presence of | | | | | | PCRinhibitors present in | | | | | | the specimen or levels | | | | | | of Neisseria | | | | | | gonorrhoeaebelow the | | | | | | limit of detection of | | | | | | the assay.Testing | | | | | | Performed: [facility], [address] | | | | | [address], [place] | | | | | | [address] | | | | + + + + + + + + | Specimen | + + | Urine specimen | | (specimen) - Urine, | | Clean Catch | + + + + + + + | Performing | Address | City/State/Zipcode | Phone Number | | Organization | | | | + + + + + | [facility] | [address] | [place] [address] | [phone] | + + + + + XR Lumbar Spine 2 or 3 Vw (01/21/2015 11:36 PM PDT) + + | Specimen | + + | | + + + + + | Narrative | Performed At | + + + | XR LUMBAR SPINE 2 OR 3 VW 01/21/2015 11:36 PM HISTORY: BACK PAIN | [facility] | | URINARY PAIN. COMPARISON: 09/21/2011. FINDINGS: There are no | | | acute osseous findings. Vertebral body height are preserved with no | | | evidence for compression fractures. Disc height are maintained. Facet | | | joints are intact. Visualized ribs and pelvic osseous structures show | | | no acute findings. There is moderate stool retention. IMPRESSION | | | - No acute findings. Dictated and Signed by: Jose Maddox MD | | | Electronically signed: 01/22/2015 8:47 AM | | + + + + + | Procedure Note | + + | Vasiliy, Zack Results In - 01/22/2015 8:50 AM PDT XR LUMBAR SPINE 2 OR 3 VW 01/21/2015 | | 11:36 PMHISTORY: BACK PAINURINARY PAIN.COMPARISON: 09/21/2011.FINDINGS:There are no acute | | osseous findings. Vertebral body height are preserved with noevidence for compression | | fractures. Disc height are maintained. Facet joints areintact. Visualized ribs and | | pelvic osseous structures show no acute findings.There is moderate stool | | retention.IMPRESSION -No acute findings.Dictated and Signed by: Jose Maddox MD | | Electronically signed: 01/22/2015 8:47 AM | |FINDINGS: | |There are no acute osseous findings. Vertebral body height are preserved with no | |evidence for compression fractures. Disc height are maintained. Facet joints are | |intact. Visualized ribs and pelvic osseous structures show no acute findings. | |There is moderate stool retention. | | | |IMPRESSION - | |No acute findings. | | | |Dictated and Signed by: Jose Maddox MD | | Electronically signed: 01/22/2015 8:47 AM | + + + +---------+ + + | Performing | Address | City/State/Zipcode | Phone Number | | Organization | | | | + +---------+ + + | [facility] | | | | + +---------+ + + XR Thoracic Spine 2 Vw (01/21/2015 11:35 PM PDT) + + | Specimen | + + | | + + + + + | Narrative | Performed At | + + + | XR THORACIC SPINE 2 VW 01/21/2015 11:35 PM HISTORY: BACK PAIN | [facility] | | URINARY PAIN. COMPARISON: None. FINDINGS: There is mild left | | | scoliosis of the lumbar spine. Bone mineralization is normal. | | | Vertebral body height are preserved with no evidence for compression | | | fractures. Disc height are maintained. Facet joints are intact. | | | Visualized chest and abdomen show no acute findings. | | | IMPRESSION - No acute findings, mild left scoliosis. Dictated and | | | Signed by: Jose Maddox MD Electronically signed: 01/22/2015 8:46 | | | AM | | + + + + + | Procedure Note | + + | Vasiliy, Rad Results In - 01/22/2015 8:49 AM PDT XR THORACIC SPINE 2 VW 01/21/2015 11:35 | | PMHISTORY: BACK PAINURINARY PAIN.COMPARISON: None.FINDINGS:There is mild left scoliosis | | of the lumbar spine. Bone mineralization is normal.Vertebral body height are preserved | | with no evidence for compression fractures.Disc height are maintained. Facet joints are | | intact. Visualized chest andabdomen show no acute findings. IMPRESSION -No acute | | findings, mild left scoliosis.Dictated and Signed by: Jose Maddox MD Electronically | | signed: 01/22/2015 8:46 AM | |FINDINGS: | |There is mild left scoliosis of the lumbar spine. Bone mineralization is normal. | |Vertebral body height are preserved with no evidence for compression fractures. | |Disc height are maintained. Facet joints are intact. Visualized chest and | |abdomen show no acute findings. | | | |IMPRESSION - | |No acute findings, mild left scoliosis. | | | |Dictated and Signed by: Jose Maddox MD | | Electronically signed: 01/22/2015 8:46 AM | + + + +---------+ + + | Performing | Address | City/State/Zipcode | Phone Number | | Organization | | | | + +---------+ + + | [facility] | | | | + +---------+ + + POCT Urinalysis Dipstick Automated (01/21/2015 11:23 PM PDT) + + + + + + | Component | Value | Ref Range | Performed | Pathologist | | | | | At | Signature | + + + + + + | Color, UA, | Dark Yellow (A) | Yellow, Light | | | | POC | | Yellow | | | + + + + + + | Clarity, | Slightly Hazy | | | | | UA, POC | | | | | + + + + + + | Glucose, | Negative | Negative | | | | UA, POC | | | | | + + + + + + | Bilirubin, | Negative | Negative | | | | UA, POC | | | | | + + + + + + | Ketones, | Negative | Negative, 100 | | | | UA, POC | | mg/dL | | | + + + + + + | Specific | 1.025 | 1.001 - 1.030 | | | | Cade, | | | | | | UA, POC | | | | | + + + + + + | Blood, UA, | Negative | Negative | | | | POC | | | | | + + + + + + | pH, UA, POC | 7.0 | 5.0, 6.0, 7.0, | | | | | | 8.0, 5.5, 6.5, | | | | | | 7.5 | | | + + + + + + | Protein, | Trace (A) | Negative | | | | UA, POC | | | | | + + + + + + | Urobilinoge | 2.0 E.U./dL (A) | 0.2, Negative, | | | | n, UA, POC | | Normal, < 0.2 | | | | | | mg/dL, 1 mg/dL, | | | | | | < 0.2 E.U./dl, | | | | | | 1.0 E.U./dL, | | | | | | 0.2 mg/dL | | | + + + + + + | Nitrite, | Negative | | | | | UA, POC | | | | | + + + + + + | Leukocyte | Negative | Negative | | | | Esterase, | | | | | | UA, POC | | | | | + + + + + + | Reducing | | | | | | Substances, | | | | | | Urine | | | | | + + + + + + | Bilirubin | | Negative | | | | Confirmatio | | | | | | n by | | | | | | Ictotest, | | | | | | Urine | | | | | + + + + + + | Remark | | | | | + + + + + + + + | Specimen | + + | Urine specimen | | (specimen) | + + POCT Test, Urine, Qual (01/21/2015 11:19 PM PDT) + + + + + + | Component | Value | Ref Range | Performed | Pathologist | | | | | At | Signature | + + + + + + | | Negative | | | | | Test, | | | | | | Urine, POC | | | | | + + + + + + | Specific | 1.025 | | | | | Cade, | | | | | | POC | | | | | + + + + + + | Internal QC | Acceptable | | | | + + + + + + | Lot Number | [id number] | | | | + + + + + + | Expiration | [id number] | | | | | Date | | | | | + + + + + + + + | Specimen | + + | Urine specimen | | (specimen) | + + ED INFORMATION EXCHANGE (01/21/2015 10:10 PM PDT) + + | Specimen | + + | | + + + + + | Narrative | Performed At | + + + | INPATIENT VISIT TRACKING (1 MO.) Visit Date | [place] [facility] | | LocationTypeDiagnoses | | | VISIT TRACKING (3 MO.) Visit Date | | | Location Type | | | Diagnoses -------- | | | ---- 01/21/2015 | | | 22:10 [facility] Emergency | | | -Poss Bladder Infection 01/02/2015 05:[address] [facility] | | | Hospital Emergency -Pain in thoracic spine | | | | | | -Pain in thoracic spine | | | | | | -BACK PAIN | | | | | | 1. Pain in thoracic spine | | | 2. | | | Other convulsions | | | 2. Tobacco use | | | disorder | | | 2. Cannabis abuse, | | | unspecified | | | 2. Other chronic pain | | | | | | 2. Obesity, unspecified | | | VISIT COUNT (1 YR.) Visits [place] Dx Location | | | ------ --------- 1 0 | | | [facility] 6 0 | | | [facility] 7 0 | | | Total Note: Visits indicate total known visits. | | | [place] Dx are the number of primary diagnoses on the [facility]'s | | | non-emergent dx list. | | | | | | --- [facility] has no Care Guidelines for this patient. | | + + + + +---------+ + + | Performing | Address | City/State/Zipcode | Phone Number | | Organization | | | | + +---------+ + + | [place] | | | | + +---------+ + + documented in this encounter Visit Diagnoses + + | Diagnosis | + + | Dysuria - Primary | + + | Chronic back pain Backache, unspecified | + + documented in this encounter Administered Medications + +--------+ +-------+------+------+ | Medication Order | MAR | Action | Dose | Rate | Site | | | Action | Date | | | | + +--------+ +-------+------+------+ | indomethacin (INDOCIN) capsule | Given | 01/23/20 | 50 mg | | | | 50 mg 50 mg, Oral, ONCE, Tue | | 15 12:08 | | | | | 01/22/15 at 0015, For 1 dose, Give | | AM PDT | | | | | with food., | | | | | | + +--------+ +-------+------+------+ +---+---+ | | | +---+---+ + +-------+ +--------+---+---+ | phenazopyridine (PYRIDIUM) | Given | 01/23/20 | 200 mg | | | | tablet 200 mg 200 mg, Oral, | | 15 12:08 | | | | | ONCE, Nisa 01/22/15 at 0015, For 1 | | AM PDT | | | | | dose | | | | | | + +-------+ +--------+---+---+ +---+---+ | | | +---+---+ documented in this encounter
--- OUTSIDE RECORDS SUMMARY | ~2020-02-26 | XMS | Encounter Summary ---
Demographics + + + | Address | [address] | | | [place] [address] | + + + | Home Phone | | + + + | Preferred Language | Unknown | + + + | Marital Status | Single | + + + | Latter-Day Affiliation | Unknown | + + + | Race | Unknown | + + + | Ethnic Group | Unknown | + + + Author + + + | Author | [facility] | | | and [place] | + + + | Organization | [facility] | | | and [...] [place] | | | | | [address] | | + + + + + Care Team Providers + +------+ + | Care Resource Specialist Name | Role | Phone | + +------+ + | Rach Quinteros MD | PCP | | + +------+ + Encounter Details +--------+ + + + + | Date | Type | Department | Care Team | Description | +--------+ + + + + | 04/18/ | Abstract | [facility] | Rach Quinteros MD | | | 2019 | | [facility] | [address] | | | | | [address] | [place] | | | | | [place] | [address] | | | | | [address] | | | | | | [phone] | | | +--------+ + + + + Social History + +-------+ +--------+------+ | Tobacco Use | Types | Packs/Day | Years | Date | | | | | Used | | + +-------+ +--------+------+ | Current Every Day | | 0.5 | | | | Smoker | | [...] | + +--------+ + + + | EXTERNAL LAB: URIC | Routin | 11/04/2018 | | Results for this | | ACID | e | | | procedure are in the | | | | | | results section. | + +--------+ + + + | EXTERNAL LAB: ALT | Routin | 11/04/2018 | | Results for this | | | e | | | procedure are in the | | | | | | results section. | + +--------+ + + + | EXTERNAL LAB: AST | Routin | 11/04/2018 | | Results for this | | | e | | | procedure are in the | | | | | | results section. | + +--------+ + + + | EXTERNAL LAB: EGFR | Routin | 11/04/2018 | | Results for this | | | e | | | procedure are in the | | | | | | results section. | + +--------+ + + + | EXTERNAL LAB: | Routin | 11/04/2018 | | Results for this | | CREATININE | e | | | procedure are in the | | | | | | results section. | + +--------+ + + + | EXTERNAL LAB: PAUL | Marcin | 08/11/2018 | | Results for this | | | e | | | procedure are in the | | | | | | results section. | + +--------+ + + + documented in this encounter Results External Lab: Uric Acid (11/04/2018) + +-------+ + + + | Component | Value | Ref Range | Performed | Pathologist | | | | | At | Signature | + +-------+ + + + | Uric Acid, | 3.5 | 2.6 - 7.2 | | | | External | | | | | + +-------+ + + + External Lab: ALT (11/04/2018) + +-------+ + + + | Component | Value | Ref Range | Performed | Pathologist | | | | | At | Signature | + +-------+ + + + | ALT, | 21 | 10 - 48 | | | | External | | | | | + +-------+ + + + External Lab: AST (11/04/2018) + +-------+ + + + | Component | Value | Ref Range | Performed | Pathologist | | | | | At | Signature | + +-------+ + + + | AST, | 20 | 10 - 42 | | | | External | | | | | + +-------+ + + + External Lab: eGFR (11/04/2018) + +-------+ + + + | Component | Value | Ref Range | Performed | Pathologist | | | | | At | Signature | + +-------+ + + + | eGFR, | >60 | | | | | External | | | | | + +-------+ + + + + + | Specimen | + + | Blood | + + External Lab: Creatinine (11/04/2018) + +---------+ + + + | Component | Value | Ref Range | Performed | Pathologist | | | | | At | Signature | + +---------+ + + + | Creatinine, | 0.5 (A) | 0.6 - 1.3 | | | | External | | | | | + +---------+ + + + + + | Specimen | + + | Blood | + + External Lab: TSH (08/11/2018) + +-------+ + + + | Component | Value | Ref Range | Performed | Pathologist | | | | | At | Signature | + +-------+ + + + | TSH, | 0.921 | 0.34 - 5.6 | | | | External | | | | | + +-------+ + + + + + | Specimen | + + | Blood | + + documented in this encounter Visit Diagnoses Not on filedocumented in this encounter"
--- OUTSIDE RECORDS SUMMARY | ~2020-02-26 | XMS | Encounter Summary ---
Demographics + + + | Address | [address] | | | [place] [address] | + + + | Home Phone | | + + + | Preferred Language | Unknown | + + + | Marital Status | Single | + + + | Moravian Affiliation | Unknown | + + + | Race | Unknown | + + + | Ethnic Group | Unknown | + + + Author + + + | Author | [facility] | | | and [place] [...] Apt | | | | | [address] | | | | | [address] | | + + + + + Care Team Providers + +------+ + | Care Order Department Supervisor Name | Role | Phone | + +------+ + | No, Physician | PCP | Unavailable | + +------+ + Reason for Visit + + + | Reason | Comments | + + + | Post-op Problem | tonsilectomy pain | + + + Encounter Details +--------+ + + + + | Date | Type | Department | Care Team | Description | +--------+ + + + + | 05/20/ | Emergency | [facility] | Mukund Jasso, | Postoperative pain | | 2015 | | [facility] | MD [address] | (Primary Dx); [facility] | | | | CENTER [address] | [place], [place] | throat | | | | [place], [place] | [address] | | | | | [address] | | | | | | [phone] | | | +--------+ + + + [...] + + + | Blood Pressure | 114/103 | 05/20/2015 6:12 PM | | | | | PDT | | + + + + + | Pulse | 88 | 05/20/2015 6:25 PM | | | | | PDT | | + + + + + | Temperature | 36.4 C (97.6 F) | 05/20/2015 4:24 PM | | | | | PDT | | + + + + + | Respiratory Rate | 16 | 05/20/2015 4:24 PM | | | | | PDT | | + + + + + | Oxygen Saturation | 98% | 05/20/2015 6:25 PM | | | | | PDT | | + + + + + | Inhaled Oxygen | - | - | | | Concentration | | | | + + + + + | Weight | 90.7 kg (200 lb) | 05/20/2015 4:24 PM | | | | | PDT | | + + + + + | Height | 147.3 cm (4' 10") | 05/20/2015 4:24 PM | | | | | PDT | | + + + + + | Body Mass Index | 41.8 | 05/20/2015 4:24 PM | | | | | PDT | | + + + + + documented in this encounter Discharge Instructions Instructions Mukund Jasso MD - 05/20/2015It is very important to stay hydrated. Consider using meal replacement shakes such as "Ensure" to be sure you get good nutrition a s you heal. You need to go get ice cream and popsicles! AttachmentsThe following attachments cannot be sent through Care Everywhere.ADULT TONSILLEC TYRELL (TAMAZIGHT)documented in this encounter Medications at Time of Discharge + + + +---------+--------+ + | Medication | Sig | Dispensed | Refills | Start | End Date | | | | | | Date | | + + + +---------+--------+ + | | Take 1 tablet by | | 0 | | | | desogestrel-ethinyl | mouth Daily. | | | | 5 | | estradiol (APRI) | | | | | | | 0.15-30 MG-MCG per | | | | | | | tablet [...] + +--------+ + + + | EXTRA LAVENDER TOP | Routin | 05/20/2015 | | Results for this | | TUBE | e | 5:18 PM | | procedure are in the | | | | PDT | | results section. | + +--------+ + + + | EXTRA GREEN TOP TUBE | Routin | 05/20/2015 | | Results for this | | | e | 5:18 PM | | procedure are in the | | | | PDT | | results section. | + +--------+ + + + | ED INFORMATION | Routin | 05/20/2015 | | Results for this | | EXCHANGE | e | 4:05 PM | | procedure are in the | | | | PDT | | results section. | + +--------+ + + + documented in this encounter Results EXTRA GREEN TOP TUBE (05/20/2015 5:18 PM PDT) + +-------+ + + + | Component | Value | Ref Range | Performed | Pathologist | | | | | At | Signature | + +-------+ + + + | Extra Green | Done | | [facility] | | | [facility] T[facility] | | | [facility] | | [...] + | [facility] | [address] | [place] | [phone] | | [facility] | | [address] | | | - LABORATORY | | | | + + + + + Extra Lavender Top Tube (05/20/2015 5:18 PM PDT) + +-------+ + + + [...] + | [facility] | [address] | [place], [place] | [phone] | | [facility] | | [address] | | | - LABORATORY | | | | + + + + + ED INFORMATION EXCHANGE (05/20/2015 4:05 PM PDT) + + | Specimen | + + | | + + + + + | Narrative | Performed At | + + + | ED/UCC VISIT TRACKING (3 MO.) Visit Date | [place] [facility] | | Location Type | | | Dx / Complaint -------- | | | ---- | | | 05/20/2015 16:02 [facility]. | | | [facility] Emergency -Throat pain/swelling, | | | (post-tonsillectomy) 03/14/2015 20:36 [facility] | | | [facility] Emergency null INPATIENT VISIT TRACKING | | | (1 MO.) Visit Date Location | | | Type Dx / Complaint | | | -------- ---- | | | 05/15/2015 07:27 [facility]. | | | [facility] Surgery -Chronic tonsillitis ED | | | VISIT COUNT (1 YR.) Visits Medicaid [place] Dx Location | | | ------ --------- 1 0 | | | [facility] 3 0 | | | [facility] 7 | | | 0 [facility] 11 | | | 0 Total Note: Visits indicate total | | | known visits. Medicaid [place] Dx are the number of primary diagnoses on | | | the [facility]'s non-emergent dx list. | | | | | | --- [facility] has no Care Guidelines for this patient. Jerry | | | Prescription Review PDMP Report PDMP report does not meet criteria. | | + + + + +---------+ + + | Performing | Address | City/State/Zipcode | Phone Number | | Organization | | | | + +---------+ + + | [place] | | | | + +---------+ + + documented in this encounter Visit Diagnoses + + | Diagnosis | + + | Postoperative pain - Primary Other acute postoperative pain | + + | Sore throat Acute pharyngitis | + + documented in this encounter Administered Medications + +--------+ +------+------+------+ | Medication Order | MAR | Action | Dose | Rate | Site | | | Action | Date | | | | + +--------+ +------+------+------+ | dexamethasone (DECADRON) 4 | Given | 05/20/20 | 4 mg | | | | mg/mL injection 4 mg 4 mg, | | 15 5:16 | | | | | Intravenous, ONCE, 05/20/15 at | | PM PDT | | | | | 1645, For 1 dose | | | | | | + +--------+ +------+------+------+ +---+---+ | | | +---+---+ + +------+ +------+---+---+ | HYDROmorphone (DILAUDID) | Push | 05/20/20 | 1 mg | | | | injection 1 mg 1 mg, | | 15 5:23 | | | | | Intravenous, ONCE, Wed05/20/15 at | | PM PDT | | | | | 1645, For 1 dose | | | | | | + +------+ +------+---+---+ +---+---+ | | | +---+---+ + +------+ +---------+---+---+ | promethazine (PHENERGAN) (IV | Push | 05/20/20 | 12.5 mg | | | | ONLY) injection 12.5 mg 12.5 mg, | | 15 5:19 | | | | | Intravenous, ONCE, Wed05/20/15 at | | PM PDT | | | | | 1645, For 1 dose, Vesicant. When | | | | | | | ordered IV push: Dilute to | | | | | | | 10-20mL with NS. Give over 2-3 | | | | | | | minutes into large vein. Do not | | | | | | | give in hand/wrist or foot/ankle | | | | | | | vein. Max dose 12.5mg if giving | | | | | | | peripherally., | | | | | | + +------+ +---------+---+---+ +---+---+ | | | +---+---+ + +---------+ +--------+-------+---+ | sodium chloride 0.9% (NS) bolus | New Bag | 05/20/20 | 1,000 | 4000 | | | 1,000 mL 1,000 mL, Intravenous, | | 15 5:15 | mLs | mL/hr | | | Administer over 15 Minutes, | | PM PDT | | | | | ONCE, 05/20/15 at 1645, For 1 | | | | | | | dose | | | | | | + +---------+ +--------+-------+---+ +---+---+ | | | +---+---+ documented in this encounter
--- OUTSIDE RECORDS SUMMARY | ~2020-02-26 | XMS | Encounter Summary ---
Demographics + + + | Address | [address] | | | [place] [address] | + + + | Home Phone | | + + + | Preferred Language | Unknown | + + + | Marital Status | Single | + + + | Pentecostal Affiliation | Unknown | + + + | Race | Unknown | + + + | Ethnic Group | Unknown | + + + Author + + + | Author | [facility] | | | and [place] | + + + | Organization | [facility] | | | and [place] | + + + | Address | Unknown | + + + | Phone | Unavailable | + + + Support + + + + + | Name | Relationship | Address | Phone | + + + + + | Paty Clarke | ECON | [address] | | | | | [address] [place] | | | | | [address] | | + + + + + Care Team Providers + +------+ + | Care Clerical Clerk Name | Role | Phone | + +------+ + | Angel Talamantes MD | PCP | | + +------+ + Reason for Visit Auth/Cert +--------+--------+ + + + + | Status | Reason | Specialty | Diagnoses / | Referred By | Referred To | | | | | Procedures | Contact | Contact | +--------+--------+ + + + + | | | | | | | +--------+--------+ + + + + Encounter Details +--------+ + + + + | Date | Type | Department | Care Team | Description | +--------+ + + + + | 01/10/ | Anesthesia | [facility] | Dorcas Gregorio | | | 2019 | Event | [facility] | Enrique, DO [address] | | | | DELIVERY IP [address] | | | | | [place], | [place] [address] | | | | | [place] [address] | [phone] | | | | | [phone] | | | +--------+ + + + + Anesthesia Record + + + + + | Procedure Name | Responsible | Anesthesia Start | Anesthesia Stop Time | | | Anesthesiologist | Time | | + + + + + | NEURAXIAL LABOR | Dorcas Gregorio, | 01/10/19 0951 | 01/10/19 1309 | | ANALGESIA/ANESTHESIA | DO | | | + + + + + +----+---+ + + | Da | T | Event | Comment | | te | i | | | | | m | | | | | e | | | +----+---+ + + | 03 | 0 | | | | /2 | 9 | | | | 6/ | 3 | | | | 20 | 8 | | | | 19 | | | | +----+---+ + + | | 0 | Pre-Procedu | | | | 9 | ral Timeout | | | | 5 | Completed | | | | 0 | | | +----+---+ + + | | 0 | Block Start | | | | 9 | | | | | 5 | | | | | 1 | | | +----+---+ + + | | 0 | An Start | Reassessment prior to anesthesia induction/procedure. | | | 9 | | | | | 5 | | | | | 1 | | | +----+---+ + + | | 1 | Test Dose | | | | 0 | | | | | 0 | | | | | 2 | | | +----+---+ + + | | 1 | Epidural | | | | 0 | Infusion | | | | 0 | Started | | | | 8 | | | +----+---+ + + | | 1 | Epidural | | | | 0 | Bolus | | | | 0 | | | | | 9 | | | +----+---+ + + | | 1 | Epi/spinal | | | | 0 | Stop | | | | 1 | | | | | 4 | | | +----+---+ + + | | 1 | Out of OR | | | | 0 | Device Stop | | | | 4 | | | | | 0 | | | +----+---+ + + | | 1 | Baby Deliv | | | | 3 | | | | | 0 | | | | | 9 | | | +----+---+ + + | | 1 | An Stop | Patient handed off to recovery nurse. | | | 0 | | | | | 9 | | | +----+---+ + + +------+ | Meds | +------+ + +---------+ | Name | Total | + +---------+ | lidocaine 1.5%-EPINEPHrine | 3 mL | | 1:200,000 (PF) | | + +---------+ | lidocaine 2% (Epidural) | 5 mL | + +---------+ | fentaNYL injection (2 mL) | 50 mcg | + +---------+ | fentaNYL 2 mcg/mL + bupivacaine | 36.2 mL | | 0.125% in saline (PF) | | + +---------+ + + | No agents on file. | + + + + | No blood administrations on file. | + + +--------+ + + + | Type | Details | Placement | Removal | +--------+ + + + | Read | 05/15/15; 0911; throat; 01/10/19 | 05/15/15 0911 by | 01/10/19 1342 by | | only - | (Completed/Removed by Utility); | Julisa Cuevas RN | User Epic | | | 1342 (Completed/Removed by | | | | Incisi | Utility) | | | | on | | | | +--------+ + + + | Periph | 01/10/19; 0700; Right; Forearm; | 01/10/19 0700 by | 01/11/19 1003 by | | eral | [id number] catheter system; | Lesa Cuevas RN | Иван Thomas, | | IV | 18 gauge; 3; distraction; no | | RN | | | longer indicated, removed per | | | | | patient; 01/11/19; 1003 | | | +--------+ + + + | Epidur | 01/10/19; 1001 (created via | 01/10/19 1001 by | 01/10/19 1320 by | | al/Spi | procedure documentation); no | Dorcas Gregorio, | Lesa Walters RN | | nal | longer indicated, removed per | DO | | | | policy, catheter intact, removed | | | | | with ease; Difficult placement | | | | | due to positioning and BMI | | | | | (48.9). Large tuohy used, loss at | | | | | 9.5cm, catheter pulled to 14.5 | | | | | cm and patient allowed to lie on | | | | | side prior to securing catheter | | | | | due to body habitus, catheter | | | | | secured at 17cm at skin. | | | | | Tolerated procedure well. Cap, | | | | | mask, sterile gloves and drape. | | | | | Patient seated, Chloraprep to | | | | | lower back, allowed to dry. | | | | | Sterile drape. Local. | | | | | Needle advanced until loss of | | | | | resistance. Catheter threaded | | | | | easily. Negative test dose. | | | | | Dosed as per anesthesia record. | | | | | Sterile dressing. Patient | | | | | tolerated well.; 01/10/19; 1320 | | | +--------+ + + + | Urethr | 01/10/19; 1220; other (see | 01/10/19 1220 by | 01/10/19 1330 by | | al | comments); All elements; All | Lesa Walters RN | Lesa Walters RN | | Cathet | elements; All elements; | | | | er | indwelling single lumen catheter; | | | | | 100% silicone; 14; None; 1; 10; | | | | | 10; none; drainage bag to | | | | | dependent drainage; urethral | | | | | catheter removed, tubing intact, | | | | | per protocol/policy; short term | | | | | use; 01/10/19; 1330 | | | +--------+ + + + [...] +---------+ + | No | | | | + + +---------+ + + + [...] this encounter Last Filed Vital Signs + +---------+ + + | Vital Sign | Reading | Time Taken | Comments | + +---------+ + + | Blood Pressure | 117/72 | 01/10/2019 10:36 AM | | | | | PDT | | + +---------+ + + | Pulse | - | - | | + +---------+ + + | Temperature | - | - | | + +---------+ + + | Respiratory Rate | - | - | | + +---------+ + + | Oxygen Saturation | 100% | 01/10/2019 10:35 AM | | | | | PDT | | + +---------+ + + | Inhaled Oxygen | - | - | | | Concentration | | | | + +---------+ + + | Weight | - | - | | + +---------+ + + | Height | - | - | | + +---------+ + + | Body Mass Index | - | - | | + +---------+ + + documented in this encounter Plan of Treatment Not on filedocumented as of this encounter Procedures + +--------+ + + + | Procedure Name | Priori | Date/Time | Associated Diagnosis | Comments | | | ty | | | | + +--------+ + + + | ANE EPIDURAL NOTE | Routin | 01/10/2019 | | Results for this | | | e | 10:40 AM | | procedure are in the | | | | PDT | | results section. | + +--------+ + + + documented in this encounter Results Anesthesia Epidural Note (01/10/2019 10:40 AM PDT) + + + | Narrative | Performed At | + + + | Dorcas Gregorio DO 01/10/2019 10:44 Neuraxial Procedure | | | Note 01/10/2019 10:01 Procedure: epidural catheter placement | | | Provider requested procedure: Montagnino, Mayra Indication: labor | | | analgesia Preprocedure check: patient identified, risks/benefits | | | discussed, preevaluation including airway assessment complete, | | | consent obtained, timeout performed, reassessment prior to | | | procedure, monitors applied and supplemental oxygen applied Patient | | | position: sitting Preparation: chlorhexidine/isopropyl alcohol, 1% | | | lidocaine infiltration, Local anesthetic infiltration volume: 3 mL | | | Procedure level: L3-4 Approach: midline Needle: Tuohy Needle size: | | | 17 g Needle length: 15 cm Loss of resistance to: saline with air | | | bubble Loss of resistance: 9.5 cm Catheter depth at skin: 17 cm | | | Medication administered through: catheter Negative findings: no blood | | | aspirated and no CSF Positive findings: paresthesia only with | | | catheter threading Test dose response: negative Attempts: 2 Ease of | | | procedure: difficult Dressing: transparent dressing and tape | | | Performing provider: DORCAS GREGORIO Comments: Difficult | | | placement due to positioning and BMI (48.9). Large tuohy used, loss | | | at 9.5cm, catheter pulled to 14.5 cm and patient allowed to lie on | | | side prior to securing catheter due to body habitus, catheter | | | secured at 17cm at skin. Tolerated procedure well. Cap, mask, | | | sterile gloves and drape. Patient seated, Chloraprep to lower back, | | | allowed to dry. Sterile drape. Local. Needle advanced until | | | loss of resistance. Catheter threaded easily. Negative test | | | dose. Dosed as per anesthesia record. Sterile dressing. Patient | | | tolerated well. Please see anesthesia record or flowsheet for | | | vital sign documentation and see anesthesia record or MAR for all | | | medication documentation. Electronically Signed by: Dorcas Caldwell | | | DO Ketan Gregorio date/time: 01/10/2019 | | | 10:40 | | + + + + + | Procedure Note | + + | Dorcas Gregorio DO - 01/10/2019 10:40 AM PDT Neuraxial Procedure Note01/10/2019 | | 10:01Procedure: epidural catheter placementProvider requested procedure: Montagnino, | | DeniseIndication: labor analgesiaPreprocedure check: patient identified, risks/benefits | | discussed, preevaluation including airway assessment complete, consent obtained, | | timeout performed, reassessment prior to procedure, monitors applied and supplemental | | oxygen appliedPatient position: sittingPreparation: chlorhexidine/isopropyl alcohol, 1% | | lidocaine infiltration,Local anesthetic infiltration volume: 3 mLProcedure level: | | L3-4Approach: midlineNeedle: TuohyNeedle size: 17 gNeedle length: 15 cmLoss of | | resistance to: saline with air bubbleLoss of resistance: 9.5 cmCatheter depth at skin: | | 17 cmMedication administered through: catheterNegative findings: no blood aspirated and | | no CSFPositive findings: paresthesia only with catheter threadingTest dose response: | | negativeAttempts: 2Ease of procedure: difficultDressing: transparent dressing and | | tapePerforming provider: DORCAS GREGORIOComments: Difficult placement due to | | positioning and BMI (48.9). Large tuohy used, loss at 9.5cm, catheter pulled to 14.5 cm | | and patient allowed to lie on side prior to securing catheter due to body habitus, | | catheter secured at 17cm at skin. Tolerated procedure well. Cap, mask, sterile gloves | | and drape. Patient seated, Chloraprep to lower back, allowed to dry. Sterile | | drape. Local. Needle advanced until loss of resistance. Catheter threaded | | easily. Negative test dose. Dosed as per anesthesia record. Sterile dressing. | | Patient tolerated well.Please see anesthesia record or flowsheet for vital sign | | documentation and see anesthesia record or MAR for all medication documentation. | | Electronically Signed by: DO Rene Gilg date/time: | | 01/10/2019 10:40 | |Ease of procedure: difficult | |Dressing: transparent dressing and tape | |Performing provider: DORCAS GREGORIO | |Comments: Difficult placement due to positioning and BMI (48.9). Large tuohy used, loss at 9.5cm, catheter pulled to 14.5 cm and patient allowed to lie on side prior to securing cath eter due to body habitus, catheter | |secured at 17cm at skin. Tolerated procedure well. | | | | | |Cap, mask, sterile gloves and drape. Patient seated, Chloraprep to lower back, allowed to d ry. Sterile drape. Local. Needle advanced until loss of resistance. Catheter threa ded easily. Negative test dose. Dosed as | |per anesthesia record. Sterile dressing. Patient tolerated well. | | | |Please see anesthesia record or flowsheet for vital sign documentation and see anesthesia r ecord or MAR for all medication documentation. | | | |Electronically Signed by: DO Ketan Gil date/time: 01/10/2019 10:40 | + + documented in this encounter Visit Diagnoses Not on filedocumented in this encounter Administered Medications + +--------+ +--------+------+------+ | Medication Order | MAR | Action | Dose | Rate | Site | | | Action | Date | | | | + +--------+ +--------+------+------+ | fentaNYL (PF) injection | Given | 01/11/20 | 50 mcg | | | | EPIDURAL, PRN, Pain, Starting Tue | | 19 12:56 | | | | | 01/10/19 at 1256, Anesthesia | | PM PDT | | | | | Intra-op | | | | | | + +--------+ +--------+------+------+ +---+---+ | | | +---+---+ + +---------+ + + +---+ | fentaNYL 2 mcg/mL + bupivacaine | New Bag | 01/11/20 | 12 mL/hr | 12 mL/hr | | | 0.125% in saline (PF) at 12 | | 19 10:08 | | | | | mL/hr, EPIDURAL, ONCE, Tue | | AM PDT | | | | | 01/10/19 at 1000, For 1 dose, | | | | | | | Intra-op, Patient-controlled | | | | | | | Bolus Dose (mL): 5, Lockout | | | | | | | Interval (min): 15 | | | | | | + +---------+ + + +---+ +---+---+ | | | +---+---+ + +-------+ +-------+---+---+ | lidocaine (PF) 2% injection | Given | 01/11/20 | 5 mLs | | | | EPIDURAL, PRN, Starting Tue | | 19 12:56 | | | | | 01/10/19 at 1256, Anesthesia | | PM PDT | | | | | Intra-op | | | | | | + +-------+ +-------+---+---+ +---+---+ | | | +---+---+ + +-------+ +-------+---+---+ | lidocaine 1.5%-EPINEPHrine | Given | 01/11/20 | 3 mLs | | | | 1:200,000 (PF) injection | | 19 10:02 | | | | | EPIDURAL, PRN, Starting Tue | | AM PDT | | | | | 01/10/19 at 1002, Anesthesia | | | | | | | Intra-op | | | | | | + +-------+ +-------+---+---+ +---+---+ | | | +---+---+ documented in this encounter"
--- OUTSIDE RECORDS SUMMARY | ~2020-02-26 | XMS | Encounter Summary ---
Demographics + + + | Address | [address] | | | [place] [address] | + + + | Home Phone | | + + + | Preferred Language | Unknown | + + + | Marital Status | Single | + + + | Presybeterian Affiliation | Unknown | + + + | Race | Unknown | + + + | Ethnic Group | Unknown | + + + Author + + + | Author | [facility] | | | and [place] | + + + | Organization | [facility] | | | and [place] | + + + | Address | Unknown | + + + | Phone | Unavailable | + + + Support + + + + + | Name | Relationship | Address | Phone | + + + + + | Paty Grass | ECON | [address] | | | | | [address] [place] | | | | | [address] | | + + + + + Care Team Providers + +------+ + | Care Wind Instrument Repairer Name | Role | Phone | + +------+ + | Angel Talamantes MD | PCP | | + +------+ + Reason for Visit +---------+ + | Reason | Comments | +---------+ + | Results | | +---------+ + Encounter Details +--------+ + + + + | Date | Type | Department | Care Team | Description | +--------+ + + + + | 07/07/ | Telephone | [facility] | Angel Talamantes, | Results | | 2017 | | [facility] [place] | MD [address] | | | | | [address] | [place], [place] | | | | | [place], [place] | [address] | | | | | [address] | | | | | | [phone] | | | +--------+ + + + [...]
--- OUTSIDE RECORDS SUMMARY | ~2020-02-26 | XMS | Encounter Summary ---
Demographics + + + | Address | [address] | | | [place] [address] | + + + | Home Phone | | + + + | Preferred Language | Unknown | + + + | Marital Status | Single | + + + | Zoroastrianism Affiliation | Unknown | + + + | Race | Unknown | + + + | Ethnic Group | Unknown | + + + Author + + + | Author | [facility] | | | and [place] | + + + | Organization | [facility] | | | [...] [address] | | | | | [address] | | + + + + + Care Team Providers + +------+ + | Care Check Processor Name | Role | Phone | + [...] | | | tonsillitis | | [address] | | | | | Chronic | | [place], | | | | | tonsillitis | | [place] [address] | | | | | Procedures | | Phone: | | | | | [place] REMOVAL | | | | | | | OF | | Fax: | | | | | TONSILS,12+ | | [phone] | | | | | Y/O | | | | | | | TONSILLECTOM | | | | | | | Y AND | | | | | | | ADENOIDECTOM | | | | | | | Y | | | +--------+--------+ + + + + Encounter Details +--------+---------+ + + + | Date | Type | Department | Care Team | Description | +--------+---------+ + + + | 05/15/ | Surgery | [facility] | Alberto Munoz, | Tonsillectomy | | 2014 | | MED CTR OR INTRA OP | [address], | | | | | [address] | [address] [place], | | | | | [place], [place] | [place] [address] | | | | | [address] | [phone] | | | | | | | | +--------+---------+ + + + Social History + +-------+ +--------+------+ | Tobacco Use | Types | Packs/Day | Years | Date | | | | | Used | | + +-------+ +--------+------+ | Current Some Day | | 0.5 | 2 | | | Smoker | | | [...] + + + | Blood Pressure | 120/58 | 05/15/2015 11:30 AM | | | | | PDT | | + + + + + | Pulse | 67 | 05/15/2015 11:30 AM | | | | | PDT | | + + + + + | Temperature | 36.2 C (97.2 F) | 05/15/2015 9:42 AM | | | | | PDT | | + + + + + | Respiratory Rate | 16 | 05/15/2015 11:30 AM | | | | | PDT | | + + + + + | Oxygen Saturation | 95% | 05/15/2015 11:30 AM | | | | | PDT | | + + + + + | Inhaled Oxygen | - | - | | | Concentration | | | | + + + + + | Weight | 91.9 kg (202 lb 9.6 | 05/15/2015 7:50 AM | | | | oz) | PDT | | + + + + + | Height | 148.6 cm (4' 10.5") | 05/15/2015 7:50 AM | | | | | PDT | | + + + + + | Body Mass Index | 41.62 | 05/15/2015 7:50 AM | | | | | PDT | | + + + + + documented in this encounter Discharge Instructions Instructions Dacia Stephenson RN - 05/15/2015Formatting of this note might be different f rom the original. Drink lots of liquids. Take pain medicine as needed Adult Tonsillectomy The tonsils are two small masses of tissue at the back of the throat. They are part of the body s immune system, which helps the body fight disease. In some people, the tonsils beco me infected or enlarged. This can cause severe sore throats, snoring, or other problems. Ton sillectomy is surgery to remove the tonsils. This sheet tells you more about this surgery an d what to expect. Preparing for surgery Prepare as you have been told. Tell your doctor about all medications you take. This includ es otqq-mtu-llerxqr drugs. It also includes herbs and other supplements. You may need to sto p taking some or all of them before surgery. Also, follow any directions you re given for not eating or drinking before surgery. The day of surgery The surgery takes about 60 minutes. You will likely go home on the same day. Before the surgery begins: An IV line is put into a vein in your arm or hand. This line supplies fluids and medicat ions. To keep you free of pain during the surgery, you re given general anesthesia. This med ication puts you into a state like deep sleep through the surgery. During the surgery: A special device is used to keep the mouth open. Other tools are used to remove the tonsils from the back of the throat. The tissue is ta pierce out through the mouth. The device holding the mouth open is then removed. After the surgery: You will be taken to a recovery room. Healthcare staff will make sure you can drink some li quids. They will also make sure your pain is being managed. When you are ready to leave the hospital, you will need to be driven home by an adult family member or friend. Recovering at home It will likely take about 2 weeks to heal from the surgery. During your recovery: Expect to have throat pain. You may also feel pain in your ears. This is referred pain from the throat, and is normal. Your post-surgery pain may come and go. It may be worse on the 4th or 5th day after surgery. Talk as little as possible, if it is painful. Take pain medication as directed. Do not drive while you are on opioid pain medication. Expect to feel sleepy or dizzy whi le you are taking this medication. Do not use ibuprofen or aspirin for 14 days after surgery unless your doctor says it s okay. Use 2 or 3 pillows under your head while resting. This will help keep swelling down. Drink lots of chilled liquids. Water, non-citrus juices, and frozen juice bars are good choices. Eat cold foods and soft foods, which are easiest to swallow. Try foods such as ice cream , gelatin, scrambled eggs, pasta, and mashed potatoes. Avoid foods that require a lot of chewing. Also avoid foods that may scratch the throat, such as toast or potato chips. Avoid hot, spicy, or acidic foods. Avoid strenuous activity for 2-3 weeks after surgery. Be aware that white patches will form in the throat during healing. These are scabs and are not a sign of infection. The patches will come off in 1-2 weeks and may cause bleeding. To minimize bleeding, drink lots of fluids. Gargling with cold water can help. Call the doctor if you have any of the following: Fever of 100.4F (38C) or higher, or as directed by your healthcare provider Bright red bleeding from the mouth or nose Severe pain not relieved by medication Signs of dehydration (dark urine, urinating less often) Heavy or persistent bleeding in the throat at any time Other signs or symptoms as indicated by your doctor Follow-up Schedule a follow-up visit with your doctor as advised. During this visit, the doctor will make sure you are healing well. Ask any questions you have about the surgery or your recover y. Risks and possible complications include: Infection Bleeding Injury to the lips or teeth Painful swallowing during recovery The need for a second surgery Risks of anesthesia (the anesthesiologist will discuss these with you) [id number] [employer] [address] [place] [id number]. All righ ts reserved. This information is not intended as a substitute for professional medical care. Always follow your healthcare professional's instructions. documented in this encounter Medications at Time [...] | + +--------+ + + + | TONSILLECTOMY AND | | 05/15/2015 | Chronic | | | ADENOIDECTOMY | | 8:30 AM | tonsillitis | | | | | PDT | | | + +--------+ + + + documented in this encounter Visit Diagnoses + + | Diagnosis | + + | Chronic tonsillitis | + + documented in this encounter Admitting Diagnoses + + | Diagnosis | + + | Chronic tonsillitis | + + documented in this encounter Administered Medications + +--------+ +-------+------+------+ | Medication Order | MAR | Action | Dose | Rate | Site | | | Action | Date | | | | + +--------+ +-------+------+------+ | famotidine (PEPCID) injection | Given | 05/15/20 | 20 mg | | | | 20 mg 20 mg, Intravenous, ONCE | | 15 8:28 | | | | | PRN, Other, PRN Pre-Op for | | AM PDT | | | | | Patients with a history of GERD, | | | | | | | Starting Wed05/15/15 at 0747, For | | | | | | | 1 dose, Prior to administration, | | | | | | | prepare a 20 mg dose by diluting | | | | | | | 2 mL of famotidine 10 mg/mL to | | | | | | | 10 mL with normal saline., Pre-op | | | | | | + +--------+ +-------+------+------+ +---+---+ | | | +---+---+ + +-------+ +--------+---+---+ | HYDROcodone-acetaminophen | Given | 05/15/20 | 15 mLs | | | | (HYCET) 7.5-325 mg/15 mL liquid | | 15 10:58 | | | | | 10-15 mL 10-15 mL, Oral, EVERY 4 | | AM PDT | | | | | HOURS PRN, Pain, Moderate Pain, | | | | | | | Starting Wed05/15/15 at 0944, Use | | | | | | | for patients unable to swallow | | | | | | | tablets if ordered, Post-op/Phase | | | | | | | II | | | | | | + +-------+ +--------+---+---+ +---+---+ | | | +---+---+ + +---------+ +---+-------+---+ | lactated ringers (LR) infusion | New Bag | 05/15/20 | | 100 | | | at 75 mL/hr, Intravenous, | | 15 10:23 | | mL/hr | | | CONTINUOUS, Starting Wed05/15/15 | | AM PDT | | | | | at 0815, Pre-op | | | | | | + +---------+ +---+-------+---+ +---------+ +---+ +---+ | New Bag | 05/15/20 | | 75 mL/hr | | | | 15 8:28 | | | | | | AM PDT | | | | +---------+ +---+ +---+ +---+---+ | | | +---+---+ + +---------+ +---------+---+ + | scopolamine (TRANSDERM-SCOP) 1 | Patch | 05/15/20 | 1 patch | | Ear-Behi | | mg/3 days 1 patch 1 patch, | Applied | 15 8:15 | | | nd Left | | Transdermal, ONCE PRN, PRN for | | AM PDT | | | | | adult patients with history of | | | | | | | PONV. Hold for patients with | | | | | | | glaucoma, dementia, altered | | | | | | | mental status, or history of | | | | | | | allergy to Scopolamine. Apply to | | | | | | | mastoid process behind ear., | | | | | | | Starting 05/15/15 at 0747, For | | | | | | | 1 dose, PRN for adult patients | | | | | | | with history of PONV. Hold for | | | | | | | patients with glaucoma, dementia, | | | | | | | altered mental status, or | | | | | | | history of allergy to | | | | | | | Scopolamine. Apply to mastoid | | | | | | | process behind ear., Pre-op | | | | | | + +---------+ +---------+---+ + +---+---+ | | | +---+---+ documented in this encounter
--- OUTSIDE RECORDS SUMMARY | ~2020-02-26 | XMS | Encounter Summary ---
Demographics + + + | Address | [address] | | | [place] [address] | + + + | Home Phone | | + + + | Preferred Language | Unknown | + + + | Marital Status | Single | + + + | Yazdanism Affiliation | Unknown | + + + | Race | Unknown | + + + | Ethnic Group | Unknown | + + + Author + + + | Author | [facility] | | | and [place] | + + + | Organization | [facility] | | | [...] [address] | | | | | [address] | | + + + + + Care Team Providers + +------+ + | Care Floorworker Name | Role | Phone | + +------+ + | Angel Talamantes MD | PCP | | + +------+ + Reason for Visit + + + | Reason | Comments | + + + | Vaginal Bleeding | | + + + Encounter Details +--------+ + + + + | Date | Type | Department | Care Team | Description | +--------+ + + + + | 08/02/ | Emergency | [facility] | Yeyo Page MD | Threatened | | 2018 | | MED CTR EMERGENCY | [address] | miscarriage (Primary | | | | CENTER [address] | [place] | Dx) | | | | [place] | [address] | | | | | [address] | | | | | | [phone] | | | +--------+ + + + [...] + + + | Blood Pressure | 124/74 | 08/02/2018 9:44 AM | | | | | PDT | | + + + + + | Pulse | 89 | 08/02/2018 9:44 AM | | | | | PDT | | + + + + + | Temperature | - | - | | + + + + + | Respiratory Rate | - | - | | + + + + + | Oxygen Saturation | 98% | 08/02/2018 9:44 AM | | | | | PDT | | + + + + + | Inhaled Oxygen | - | - | | | Concentration | | | | + + + + + | Weight | 104.3 kg (230 lb) | 08/02/2018 9:20 AM | | | | | PDT | | + + + + + | Height | 148.6 cm (4' 10.5") | 08/02/2018 9:20 AM | | | | | PDT | | + + + + + | Body Mass Index | 47.25 | 08/02/2018 9:20 AM | | | | | PDT | | + + + + + documented in this encounter Discharge Instructions Instructions Yeyo Page MD - 08/02/2018Return for excessive vaginal bleeding, fainting , shortness of breath, chest pain, severe abdominal pain, other new complaints documented in this encounter Medications at Time of Discharge + + + +---------+ + + | Medication | Sig | Dispensed | Refills | Start | End Date | | | | | | Date | | + + + +---------+ + + | Cholecalciferol | Take 1 capsule by | 30 | 11 | 07/07/20 | | | (VITAMIN D-3) 2000 | mouth Daily. | capsule | | 18 | 9 | | units CAPS | | | | | | + [...] | Diagnosis | + + | Threatened miscarriage - Primary Threatened , unspecified as to episode of | | care | + + documented in this encounter Administered Medications + +--------+ +---------+------+ + | Medication Order | MAR | Action | Dose | Rate | Site | | | Action | Date | | | | + +--------+ +---------+------+ + | rho(D) immune globulin | Given | 08/02/20 | 300 mcg | | Ventrogl | | (RHOGAM,HYPERRHO S/D) injection | | 18 10:26 | | | uteal-Ri | | 300 mcg 300 mcg, Intramuscular, | | AM PDT | | | ght | | ONE TIME VACCINE, 08/02/18 at | | | | | | | 0925, For 1 dose, Each 1 mcg = 5 | | | | | | | units (300 mcg = 1,500 units), | | | | | | + +--------+ +---------+------+ + +---+---+ | | | +---+---+ documented in this encounter
--- OUTSIDE RECORDS SUMMARY | ~2020-02-26 | XMS | Encounter Summary ---
Demographics + + + | Address | [address] | | | [place] [address] | + + + | Home Phone | | + + + | Preferred Language | Unknown | + + + | Marital Status | Single | + + + | Uatsdin Affiliation | Unknown | + + + | Race | Unknown | + + + | Ethnic Group | Unknown | + + + Author + + + | Author | [facility] | | | and [...] [address] | | | | | [address] | | + + + + + Care Team Providers + +------+ + | Care Legal Referee Name | Role | Phone | + +------+ + PCP | Unavailable | + +------+ + Encounter Details +--------+ + + + + | Date | Type | Department | Care Team | Description | +--------+ + + + + | 03/10/ | Hospital | [facility] | Sanjeev Viera, | | | 2004 | Encounter | MED CTR LABORATORY | [address] | | | | | [address] | [place] | | | | | [place] | [address] | | | | | [address] | | | | | | [phone] | | | +--------+ + + + [...]
--- OUTSIDE RECORDS SUMMARY | ~2020-02-26 | XMS | Encounter Summary ---
Demographics + + + | Address | [address] | | | [place] [address] | + + + | Home Phone | | + + + | Preferred Language | Unknown | + + + | Marital Status | Single | + + + | Buddhist Affiliation | Unknown | + + + | Race | Unknown | + + + | Ethnic Group | Unknown | + + + Author + + + | Author | [facility] | | | and [place] | + + + | Organization | [facility] | | | [...] [address] | | | | | [address] | | + + + + + Care Team Providers + +------+ + | Care Tube Trailer Filler Name | Role | Phone | + [...] | | | tonsillitis | | [address] | | | | | Chronic | | [place], | | | | | tonsillitis | | [place] [address] | | | | | Procedures | | Phone: | | | | | [place] REM[place]AL | | | | | | | OF | | Fax: | | | | | TONSILS,12+ | | [phone] | | | | | Y/O | [...] | | | | | [address] | [address] [place] | | | | | [place], [place] | [address] | | | | | [address] | | | | | | | [...]
--- OUTSIDE RECORDS SUMMARY | ~2020-02-26 | XMS | Encounter Summary ---
Demographics + + + | Address | [address] | | | [place] [address] | + + + | Home Phone | | + + + | Preferred Language | Unknown | + + + | Marital Status | Single | + + + | Hindu Affiliation | Unknown | + + + | Race | Unknown | + + + | Ethnic Group | Unknown | + + + Author + + + | Author | [facility] | | | and [place] | + + + | Organization | [facility] | | [...] Apt | | | | | [address] | | | | | [address] | | + + + + + Care Team Providers + +------+ + | Care Tools Administrator Name | Role | Phone | + +------+ + | No, Physician | PCP | Unavailable | + +------+ + Reason for Visit + + + | Reason | Comments | + + + | Sore Throat | | + + + | Hand Pain | | + + + Encounter Details +--------+ + + + + | Date | Type | Department | Care Team | Description | +--------+ + + + + | 05/10/ | Emergency | [facility] | Alexei Howell, | Acute viral syndrome | | 2018 | | MED CTR EMERGENCY | [address] | (Primary Dx); | | | | CENTER [address] | [address] | Paresthesia of right | | | | [place] | [place] [address] | upper extremity | | | | [address] | [phone] | | | | | [phone] | | | +--------+ + + + [...] + + + | Blood Pressure | 126/68 | 05/10/2018 12:29 PM | | | | | PDT | | + + + + + | Pulse | 94 | 05/10/2018 12:29 PM | | | | | PDT | | + + + + + | Temperature | 36.4 C (97.5 F) | 05/10/2018 12:29 PM | | | | | PDT | | + + + + + | Respiratory Rate | 14 | 05/10/2018 12:29 PM | | | | | PDT | | + + + + + | Oxygen Saturation | 97% | 05/10/2018 12:29 PM | | | | | PDT | | + + + + + | Inhaled Oxygen | - | - | | | Concentration | | | | + + + + + | Weight | - | - | | + + + + + | Height | 147.3 cm (4' 10") | 05/10/2018 12:29 PM | | | | | PDT | | + + + + + | Body Mass Index | - | - | | + + + + + documented in this encounter Discharge Instructions Instructions Alexei Howell MD - 05/10/2018Quit smoking. Use Tylenol, ibuprofen if tole rated, rest, fluids. Chloraseptic spray or other throat lozenges for any throat irritation. Warm salt water gargling as needed for sore throat. Some adults find Vitamin C 1000mg twice daily helps fight infections Recheck in about 7-10 days with your regular doctor if not improving, sooner if worse. If your symptoms are not resolving as expected please return here or go to an emergency de partment as needed. We are committed to improving the emergency department experience for our patients, and yomi mcdowell love to hear your feedback. If you receive a customer satisfaction survey either by mail or email, please fill it out and let us know how we are doing! We love to hear about any p ositive experiences, and we need to hear about any areas we can improve upon. We appreciate you taking the time to fill out this survey so we can continue to serve our community in th e best way possible. AttachmentsThe following attachments cannot be sent through Care Everywhere.Viral Syndrome (Adult) (Citizen Of [place])documented in this encounter Medications at Time of [...] + +--------+ + + + | XR HAND RIGHT 3 + VW | STAT | 05/10/2018 | | Results for this | | | | 1:35 PM | | procedure are in the | | | | PDT | | results section. | + +--------+ + + + documented in this encounter Results XR Hand Right 3 + Vw (05/10/2018 1:35 PM PDT) + + | Specimen | + + | | + + + + + | Narrative | Performed At | + + + | EXAM:XR HAND RIGHT 3 + VW CLINICAL HISTORY: Hand pain. | [facility] | | COMPARISON: January 13, 2012 FINDINGS: 3 views of the right hand. | | | Normal mineralization. No acute fracture. No current | | | dislocation. No bone erosion or destruction. The soft tissues are | | | unremarkable. There are no radiopaque foreign bodies. | | | IMPRESSION - No acute osseous abnormality or current malalignment. | | | Dictated and Signed by: Nick Coello MD Electronically | | | signed: 05/10/2018 1:45 PM | | + + + + + | Procedure Note | + + | Vasiliy, Rad Results In - 05/10/2018 1:48 PM PDT EXAM:XR HAND RIGHT 3 + VW | | | | CLINICAL HISTORY: Hand pain. | | | | COMPARISON: January 13, 2012 | | | | FINDINGS: 3 views of the right hand. Normal mineralization. No acute fracture. | | No current dislocation. No bone erosion or destruction. The soft tissues are | | unremarkable. There are no radiopaque foreign bodies. | | | | IMPRESSION - | | | | No acute osseous abnormality or current malalignment. | | | | Dictated and Signed by: Nick Coello MD | | Electronically signed: 05/10/2018 1:45 PM | + + + +---------+ + + | Performing | Address | City/State/Zipcode | Phone Number | | Organization | | | | + +---------+ + + | [facility] | | | | + +---------+ + + documented in this encounter Visit Diagnoses + + | Diagnosis | + + | Acute viral syndrome - Primary | + + | Paresthesia of right upper extremity | + + documented in this encounter
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
--- OUTSIDE RECORDS SUMMARY | ~2020-02-26 | XMS | Encounter Summary ---
Demographics + + + | Address | [address] | | | [place] [address] | + + + | Home Phone | | + + + | Preferred Language | Unknown | + + + | Marital Status | Single | + + + | Jewish Affiliation | Unknown | + + + | Race | Unknown | + + + | Ethnic Group | Unknown | + + + Author + + + | Author | [facility] | | | and [place] | + + + | Organization | [facility] | | | [...] [id number] [place] | | | | | [address] | | + + + + + Care Team Providers + +------+ + | Care Technical Adjuster Name | Role | Phone | + +------+ + | Angel Talamantes MD | PCP | | + +------+ + Reason for Visit +---------+ + | Reason | Comments | +---------+ + | Results | pap smear | +---------+ + Encounter Details +--------+ + + + + | Date | Type | Department | Care Team | Description | +--------+ + + + + | 07/14/ | Telephone | [facility] | Angel Talamantes, | Results (pap smear) | | 2018 | | [facility] [place] | [address] | | | | | [address] | [place], [place] | | | | | [place], [place] | [address] | | | | | [address] | | | | | | [phone] | | | +--------+ + + + [...]
--- OUTSIDE RECORDS SUMMARY | ~2020-02-26 | XMS | Encounter Summary ---
Demographics + + + | Address | [address] | | | [place] [address] | + + + | Home Phone | | + + + | Preferred Language | Unknown | + + + | Marital Status | Single | + + + | Restorationism Affiliation | Unknown | + + + | Race | Unknown | + + + | Ethnic Group | Unknown | + + + Author + + + | Author | [facility] | | | and [place] | + + + | Organization | [facility] | | | [...] [id number] | | | | | [address] | | + + + + + Care Team Providers + +------+ + | Care Telegraph Plant Maintainer Name | Role | Phone | + +------+ + | Angel Talamantes MD | PCP | | + +------+ + Reason for Visit + + + | Reason | Comments | + + + | Sore Throat (Minor) | | + + + Encounter Details +--------+ + + + + | Date | Type | Department | Care Team | Description | +--------+ + + + + | 02/06/ | Emergency | [facility] | Alvarado Steward | Strep pharyngitis | | 2015 | | [facility] | Hilton Kearney MD | (Primary Dx) | | | | CENTER [address] | [address] | | | | | [place] | [place], [place] | | | | | [address] | [address] | | | | | [phone] | | | +--------+ + + + [...] + + + | Blood Pressure | 108/54 | 02/06/2015 10:24 PM | | | | | PDT | | + + + + + | Pulse | 88 | 02/06/2015 10:24 PM | | | | | PDT | | + + + + + | Temperature | 37.4 C (99.3 F) | 02/06/2015 10:24 PM | | | | | PDT | | + + + + + | Respiratory Rate | 18 | 02/06/2015 10:24 PM | | | | | PDT | | + + + + + | Oxygen Saturation | 99% | 02/06/2015 10:24 PM | | | | | PDT | | + + + + + | Inhaled Oxygen | - | - | | | Concentration | | | | + + + + + | Weight | 88.5 kg (195 lb) | 02/06/2015 10:24 PM | | | | | PDT | | + + + + + | Height | 147.3 cm (4' 10") | 02/06/2015 10:24 PM | | | | | PDT | | + + + + + | Body Mass Index | 40.76 | 02/06/2015 10:24 PM | | | | | PDT | | + + + + + documented in this encounter Discharge Instructions Instructions Alvarado Steward MD - 02/06/2015Return for worsening pain, fever, chills shortness breath difficulty breathing difficulty swallowing or worsening symptoms. documented in this encounter Medications at Time of Discharge + + + +---------+ + + | Medication | Sig | Dispensed | Refills | Start | End Date | | | | | | Date | | + + + +---------+ + + | azithromycin | Take 2 tabs on day | 6 | 0 | 02/07/20 | | | (ZITHROMAX Z-ARVIN) | 1, then take one tab | tablet | | 15 | 5 | | 250 mg tablet | po daily x 4 days | | | | | + + [...] + + + +---------+ + + | metoprolol | Take 25 mg [...] + | ED INFORMATION | Routin | 02/06/2015 | | Results for this | | EXCHANGE | e | 10:15 PM | | procedure are in the | | | | PDT | | results section. | + +--------+ + + + documented in this encounter Results ED INFORMATION EXCHANGE (02/06/2015 10:15 PM PDT) + + | Specimen | + + | | + + + + + | Narrative | Performed At | + + + | INPATIENT VISIT TRACKING (1 MO.) Visit Date | [facility] | | LocationTypeDiagnoses | | | VISIT TRACKING (3 MO.) Visit Date | | | Location Type | | | Diagnoses -------- | | | ---- 02/06/2015 | | | 22:14 Merged With [facility] | | | -Poss Throat Inf 01/21/2015 22:45 [facility] | | | Center Emergency -Urinary Pain | | | | | | -Backache, unspecified | | | | | | -Poss Bladder Infection | | | -Back | | | Pain | | | -Other chronic pain | | | | | | -Dysuria 01/02/2015 05:10 [facility] | | | [facility] Emergency -Pain in thoracic | | | spine | | | -Pain in thoracic spine | | | | | | -BACK PAIN | | | | | | 1. Pain in thoracic spine | | | | | | 2. Other convulsions | | | 2. | | | Tobacco use disorder | | | 2. Cannabis | | | abuse, unspecified | | | 2. Other | | | chronic pain | | | 2. Obesity, | | | unspecified VISIT COUNT (1 YR.) Visits [place] D[place] | | | Location ------ --------- 2 0 | | | Merged With [facility] 6 | | | 0 [facility] 8 | | | 0 Total Note: Visits indicate total | | | known visits. [place] D[place] are the number of primary diagnoses on | | | the [facility]'s non-emergent dx list. | | | | [...] + | Diagnosis | + + | Strep pharyngitis - Primary Streptococcal sore throat | + + documented in this encounter Administered Medications + +--------+ +--------+------+------+ | Medication Order | MAR | Action | Dose | Rate | Site | | | Action | Date | | | | + +--------+ +--------+------+------+ | azithromycin (ZITHROMAX) tablet | Given | 02/07/20 | 500 mg | | | | 500 mg 500 mg, Oral, DAILY, | | 15 10:36 | | | | | First dose on [facility] 02/07/15 at 0900 | | PM PDT | | | | + +--------+ +--------+------+------+ +---+---+ | | | +---+---+ + +-------+ +--------+---+---+ | ibuprofen (ADVIL, MOTRIN) | Given | 02/07/20 | 800 mg | | | | tablet 800 mg 800 mg, Oral, | | 15 10:36 | | | | | ONCE, 02/06/15 at 2300, For 1 | | PM PDT | | | | | dose, Give with food., | | | | | | + +-------+ +--------+---+---+ +---+---+ | | | +---+---+ documented in this encounter
--- OUTSIDE RECORDS SUMMARY | ~2020-02-26 | XMS | Encounter Summary ---
Demographics + + + | Address | [address] | | | [place] [address] | + + + | Home Phone | | + + + | Preferred Language | Unknown | + + + | Marital Status | Single | + + + | Islam Affiliation | Unknown | + + + | Race | Unknown | + + + | Ethnic Group | Unknown | + + + Author + + + | Author | [facility] | | | and [place] | + + + | Organization | [facility] | | [...] [address] | | | | | [address] | | + + + + + Care Team Providers + +------+ + | Care Rider Ticket Worker Name | Role | Phone | + +------+ + PCP | Unavailable | + +------+ + Encounter Details +--------+ + + + + | Date | Type | Department | Care Team | Description | +--------+ + + + + | 08/01/ | Hospital | [facility] | | | | 2004 | Encounter | [facility] EM[facility] | | | | | | CENTER [address] | | | | | | [place] | | | | | | [address] | | | | | | [phone] | | | +--------+ + + + [...]
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
--- OUTSIDE RECORDS SUMMARY | ~2020-02-26 | XMS | Encounter Summary ---
Demographics + + + | Address | [address] | | | [place] [address] | + + + | Home Phone | | + + + | Preferred Language | Unknown | + + + | Marital Status | Single | + + + | Worship Affiliation | Unknown | + + + | Race | Unknown | + + + | Ethnic Group | Unknown | + + + Author + + + | Author | [facility] | | | and [place] | + + + | Organization | [facility] | | | and [place] | + + + | Address | Unknown | + + + | Phone | Unavailable | + + + Support + + + + + | Name | Relationship | Address | Phone | + + + + + | Paty Clarke | ECON | [address] | | | | | [place] | | | | | [address] | | + + + + + Care Team Providers + +------+ + | Care Repairer General Name | Role | Phone | + +------+ + | No, Physician | PCP | Unavailable | + +------+ + Reason for Referral Evaluate & Treat (Routine) +--------+ + + + + + | Status | Reason | Specialty | Diagnoses / | Referred By | Referred To | | | | | Procedures | Contact | Contact | +--------+ + + + + + | Closed | Specialty | | Diagnoses | | | | | Services | Services | | Martir, | | | | Required | | care and | Mayra | | | | | | examination | Angi | | | | | | immediately | Semaj, DO | | | | | | after | [address] | | | | | | delivery | [place] | | | | | | | [place], [place] | | | | | | | [address] | | | | | | | Phone: | | | | | | | [phone] | | | | | | | Fax: | | | | | | | [phone] | | +--------+ + + + + + Evaluate & Treat (Routine) +--------+ + + + + + | Status | Reason | Specialty | Diagnoses / | Referred By | Referred To | | | | | Procedures | Contact | Contact | +--------+ + + + + + | Closed | Specialty | | Diagnoses | | | | | Services | and | | [place], | | | | Required | | care and | Mayra | | | | | | examination | Angi | | | | | | immediately | Semaj, | | | | | | after | [address] | | | | | | delivery | [place] | | | | | | | [place], [place] | | | | | | | [address] | | | | | | | Phone: | | | | | | | [phone] | | | | | | | Fax: | | | | | | | [phone] | | +--------+ + + + + + Reason for Visit + + + | Reason | Comments | + + + | Rupture of Membranes | | + + + Auth/Cert +--------+--------+ + + + + | [...] + + + + | 01/10/ | Hospital | [facility] | Mayra Mcmahan | care and | | 2019 - | Encounter | [facility] | Angi Cha DO | examination | | | | [address] | [address] | immediately after | | 01/12/ | | [place] | [place] | delivery (Primary | | 2019 | | [id number] | [id number] | Dx) | | | | [phone] | | | +--------+ + + + [...] + + + | Blood Pressure | 134/66 | 01/12/2019 3:45 PM | | | | | PDT | | + + + + + | Pulse | 76 | 01/12/2019 3:45 PM | | | | | PDT | | + + + + + | Temperature | 36.3 C (97.3 F) | 01/12/2019 3:45 PM | | | | | PDT | | + + + + + | Respiratory Rate | 20 | 01/12/2019 3:45 PM | | | | | PDT | | + + + + + | Oxygen Saturation | 98% | 01/12/2019 3:45 PM | | | | | PDT | | + + + + + | Inhaled Oxygen | - | - | | | Concentration | | | | + + + + + | Weight | 108 kg (238 lb) | 01/10/2019 5:17 AM | | | | | PDT | | + + + + + | Height | 148.6 cm (4' 10.5") | 01/10/2019 5:17 AM | | | | | PDT | | + + + + + | Body Mass Index | 48.9 | 01/10/2019 5:17 AM | | | | | PDT | | + + + + + documented in this encounter Discharge Summaries Mayra Mcmahan DO - 01/12/2019 1:39 PM PDT DISCHARGE SUMMARY-OBSTETRICS Date of Admission: 01/10/2019 Date of Discharge: 01/12/2019 ATTENDING CLINICIAN: Mayra Mcmahan DO PRIMARY SEED PELLETER: No Physician on file HISTORY OF PRESENT ILLNESS 23 y.o. with IUP @ 37w1d presented with spontaneous labor. Delivery uncomplicated and rapid. She pushed once and delivered a viable . HOSPITAL COURSE: Mavis Clarke is a 23 y.o.-year-old, now female (Estimated Date of Delivery: 01/30) who had a delivered by Vaginal, Spontaneous Delivery . At 01/10/2019 1309 Mavis bore a living female 2.37 kg (5 lb 3.6 oz) , . scores were 8 /9 at one and five minutes respectively. Estimated Blood loss was 200ml. Her labor course was uncomplicated. Her course was complicated by only an episode of tearfulness. She has a history of mental health issues. Pain was well controlled and she was ambulating well without any d ifficulty. She had normal bowel an urinary function. Her vital signs were stable and afebr ile. Supplementing with formula. She was discharged home in stable condition. She was gi daniel written post operative instructions in regards to her activity level and limitations. DISPOSITION: home CONDITION UPON DISCHARGE: stable DISCHARGE MEDICATIONS: Discharge Medications New Medications Details docusate sodium 100 MG capsule Take 100 mg by mouth Twice daily as needed for Constipation. aka: COLACE ibuprofen 600 MG tablet Take 1 tablet by mouth every 6 hours as needed for Pain. aka: ADVIL,MOTRIN Immunization History Administered Date(s) Administered MMR, 2 DOSE (PED/ADULT) 01/11/2019 FOLLOWUP: within 1 week and 6 weeks PRECAUTIONS: Pelvic rest for 6 weeks. PPD reviewed, precautions discussed. DIET: Regular Electronically Signed by: Mayra Mcmahan DO 01/12/2019 13:39 docu mented in this encounter Discharge Instructions Instructions Lesa Walters, SOWMYA - 01/12/2019POSTPARTUM DISCHARGE INSTRUCTIONS Warning Signs Check List Notify your clinician immediately if you are experiencing any of the following: Heavy bleeding from the vagina (blood is bright-red and soaks a pad in an hour or less) Normal bleeding decreases in amount over time and is: Bright-red (lasts two to three days). Pinkish or brown (lasts from about the third day to the tenth day). Creamy or yellow (usually lasts one to two weeks). Discharge from the vagina that has a bad odor. Temperature over 100.4 (38 C) or you feel cold and have the chills (you are shiv ering). Urination that is painful, difficult, or too frequent. Difficulty having a bowel movement. Breasts that are full and or/painful (swollen, hot, tight, itchy, lumpy, shiny, flat nip ples, or sore spots with flu-like symptoms). Pain that becomes worse and unrelieved by medication. Trouble breathing, dizziness, or faintness. Crying spells or mood swings that feel out of control. Pain, redness, warmth or firmness in the lower calf. Unusual or excessive swelling in your face or hands. Severe or constant headaches. Blurred vision or spots in front of your eyes. Sudden weight gain of more than one pound a day for several days. Persistent pain in the upper right part of your abdomen. Activity/Exercise Do not drive while you are taking narcotics. If you had a section, try driving maneuvers while parked to ensure no increase in incisional pain. Gradually increase your daily activities until you are back to your normal routine. Rest frequently. Remember to continue to drink plenty of fluids and eat frequently if yo u are . Heavy lifting or other strenuous exertion is unlikely to disrupt your incision or lacera tion but it may cause an increase in pain. Your provider will tell you if additional restric tions apply to you. Bowels and Regularity constipation is common; you make take Docusate sodium or Milk of Magnesia to alleviate discomfort Painful bowel movements or rectal pain may result from hemorrhoids; use Tucks and/or top ical treatment like Anusol-HC. Sitz baths can also help. Normal Bleeding Vaginal spotting may last up to six weeks. It is important that you change your pad on a regular basis. Your menstrual period may occur as early as six weeks to two months after your delivery. Care of Stitches You should feel less discomfort every day from your stitches. Perineal stitches will dissolve within 2-4 weeks. You may shower or bathe with stitches; drip plain or soapy water over the incision and d ry gently with a clean towel. If you have maria de jesus you may shower (no tub bathing), and dry g ently with a clean towel. If you had any maria de jesus that were not removed during your hospitalization they will need to be removed in your provider's office. Steri-strips may fall off on their own or can be removed at post-op visit. Sex/Douching/Tampons Do not place anything in the vagina for the first six weeks after delivery. Your healthcare provider may advise you to wait up to six weeks for intercourse. Once th e bleeding has stopped, it is alright to have intercourse if you feel ready. Keep in mind yo u are at risk of getting . You may find your vagina feels dry, making sex uncomfortable. This can last several bonny hs due to changing hormone levels. To help lubricate your vagina, you may purchase a waterso luble lubricant (e.g., Astroglide) from your local drug store. This will help make intercour se more comfortable. documented in this encounter Medications at Time [...] + + + +---------+ + + | docusate sodium | Take 100 mg by mouth | 60 | 1 | 01/13/20 | | | (COLACE) 100 MG | Twice daily as | capsule | | 19 | 9 | | capsule | needed for | | | | | | | Constipation. | | | | | + + + +---------+ + + | FLUTICASONE | by Nasal route. | | 0 | | | | FUROATE NA | | | | | 9 | + + + +---------+ + + | ibuprofen | Take 1 tablet by | 40 | 0 | 01/13/20 | | | (ADVIL,MOTRIN) 600 | mouth every 6 hours | tablet | | 19 | 9 | | MG tablet | as needed for Pain. | | | | [...] + + documented as of this encounter Progress Mayra Krishnamurthy, DO - 01/12/2019 1:37 PM PDTObstetrics Progres s Note Subjective: Patient reports feeling well right now.. Off and on unit during the day. Visit with case leigh garibay today for discharge planning. Pain: Well controlled, cramping minimal : still attempting to latch, supplementing with formula. Lochia: moderate Ambulating: Without any difficulty or dizziness Reports an episode last night where the baby was crying between feeds. States that her ove rnight nurse told her she was not allowed to feed the baby yet. January became quite upset an d had an 30 minute crying episode. We discussed her history of mental health disorders. She been on multiple medications in the past. She would like to verify what medications that s he tolerated in the past. She has had multiple negative side effects to medications. She is feeling a little depressed at this time. Maternal VS's: BP: 125/73 Pulse: 78 Temp: 36.4 C (97.5 F) Exam: General: No acute distress, baby at bedside CV: RRR Lungs: CTA b/l Abdomen: Soft, non-tender, non-distended Fundus: Firm, below the umbilicus Extremities: No calf tenderness, 2+ pitting edema Assessment/Plan: Day #2 s/p normal spontaneous vaginal delivery recovering well -Rh negative, baby Rh positive. Rhogam prior to discharge. -tdap prior to delivery -work on feeding with today -pelvic rest x 6 wks, precautions reviewed -At risk for depression. History of mental health issues. Will verify with her mother the SSRI she has been on in the past that worked well for her. I will prescribe med s to start taking now. I will plan on seeing her back in the office within 1 week. She is pl anning on returning to her counselor. I have also encouraged her to establish care at [facility]. [facility] with precautions Electronically Signed by: Mayra Mcmahan DO 01/12/2019 13:37 Mayra Anders DO - 01/11/2019 1:09 PM PDT . Obstetrics Progress Note Subjective: Patient reports doing well. Walking the halls this morning. Pain: Well controlled, cramping : attempting to latch, supplementing with formula. Lochia: moderate Ambulating: Without any difficulty or dizziness Maternal VS's: BP: 121/73 Pulse: 90 Temp: 36.2 C (97.2 F) Exam: General: No acute distress, baby at bedside CV: RRR Lungs: CTA b/l Abdomen: Soft, non-tender, non-distended Fundus: Firm, below the umbilicus Extremities: No calf tenderness, 2+ pitting edema 01/10 0656 01/11 0645 WBC 13.5 12.7 Hemoglobin 11.4 11.4 Hct, Final 35.1 34.8 Platelet Count 330 300 Assessment/Plan: Day #1 s/p normal spontaneous vaginal delivery recovering well -Rh negative, baby Rh positive. Rhogam prior to discharge -tdap prior to delivery -work on feeding with today -routine PP care Plan for d/c home tomorrow if remains stable. Electronically Signed by: Mayra Mcmahan DO 01/11/2019 9:16 Mayra Anders DO - 01/10/2019 12:30 PM PDTLabor Progress Note Subjective: Patient comfortable with epidural. Feeling more pressure. Carolina inserted. ptiocin @ 4 Maternal VS's: BP: 123/69 Pulse: 83 Temp: 35.5 C (95.9 F) FHR Assessment (Last assessment) Baseline 110, moderate variability, no decels (but tracing discontinuous at times) Uterine Activity (Last assessment) Method: TOCO (external toco transducer); q2-4 minutes Vaginal Exam (Last assessment) 6/90/0 per Lesa Assessment/Plan: 23 y.o. 37w0d with PROM. -labor progressing well, reassuring status -Continue current management with pitocin for augmentation -Anticipate normal spontaneous vaginal delivery Electronically Signed by: Mayra Mcmahan DO 01/10/2019 13:05 docu mented in this encounter Plan of Treatment + + +--------+ + + | Name | Type | Priori | Associated Diagnoses | Order Schedule | | | | ty | | | + + +--------+ + + | Amb referral to | Outpatient | Routin | care | 1 Occurrences | | | Referral | e | and examination | starting 01/12/2019 | | | | | immediately after | until 01/10/2020 | | | | | delivery | | + + +--------+ + + | Ambulatory referral | Outpatient | Routin | care | 1 Occurrences | | to | Referral | e | and examination | starting 01/12/2019 | | | | | immediately after | until 01/10/2020 | | | | | delivery | | + + +--------+ + + documented as of this encounter Procedures + +--------+ + + + | Procedure Name | Priori | Date/Time | Associated Diagnosis | Comments | | | ty | | | | + +--------+ + + + | SCREEN, REFLEX | Routin | 01/11/2019 | | Results for this | | | e | 6:45 AM | | procedure are in the | | | | PDT | | results section. | + +--------+ + + + | CBC NO DIFFERENTIAL | Routin | 01/11/2019 | | Results for this | | | e | 6:45 AM | | procedure are in the | | | | PDT | | results section. | + +--------+ + + + | CBC NO DIFFERENTIAL | STAT | 01/10/2019 | | Results for this | | | | 6:56 AM | | procedure are in the | | | | PDT | | results section. | + +--------+ + + + | TYPE AND SCREEN | Routin | 01/10/2019 | | Results for this | | | e | 6:56 AM | | procedure are in the | | | | PDT | | results section. | + +--------+ + + + | RUPTURE OF MEMBRANES | Routin | 01/10/2019 | | Results for this | | | e | 4:19 AM | | procedure are in the | | | | PDT | | results section. | + +--------+ + + + | CULTURE, STREP GROUP | Routin | 01/06/2019 | | Results for this | | B | e | | | procedure are in the | | | | | | results section. | + +--------+ + + + | C. TRACHOMATIS AND | Routin | 07/06/2018 | | Results for this | | N. GONORRHOEAE AND | e | | | procedure are in the | | T. VAGINALIS, NAAT | | | | results section. | + +--------+ + + + | C. TRACHOMATIS AND | Routin | 07/06/2018 | | Results for this | | N. GONORRHOEAE, NAAT | e | | | procedure are in the | | | | | | results section. | + +--------+ + + + | RUBELLA AB, IGG | Routin | 07/06/2018 | | Results for this | | | e | | | procedure are in the | | | | | | results section. | + +--------+ + + + | RAPID PLASMA REAGIN, | Routin | 07/06/2018 | | Results for this | | QUAL | e | | | procedure are in the | | | | | | results section. | + +--------+ + + + | HIV 1 AND 2 AB, | Routin | 07/06/2018 | | Results for this | | REFLEX | e | | | procedure are in the | | | | | | results section. | + +--------+ + + + | HEPATITIS B SURFACE | Routin | 07/06/2018 | | Results for this | | AG | e | | | procedure are in the | | | | | | results section. | + +--------+ + + + | ANTIBODY SCREEN | Routin | 07/06/2018 | | Results for this | | | e | | | procedure are in the | | | | | | results section. | + +--------+ + + + documented in this encounter Results Screen, Reflex (01/11/2019 6:45 AM PDT) + + + + + + | Component | Value | Ref Range | Performed | Pathologist | | | | | At | Signature | + + + + + + | | Negative | | [facility] | | | SCREEN | | | [facility] | [facility] - | | | | | | BLOOD BANK | | + + + + + + + + | Specimen | + + | Blood | + + + + + + + | Performing | Address | City/State/Zipcode | Phone Number | | Organization | | | | + + + + + | [facility] | [address] | [place] | | | [facility] | | [address] | | | - BLOOD BANK | | | | + + + + + CBC no Differential (01/11/2019 6:45 AM PDT) + + + + + + | Component | Value | Ref Range | Performed | Pathologist | | | | | At | Signature | + + + + + + | WBC | 12.7 (H) | 4.0 - 11.0 K/uL | [facility] | | | | | | [facility] | | | [facility] | | [facility] | | | | | | [facility] - | | | | | | LABORATORY | | + + + + + + | RBC | 4.03 | 3.70 - 5.20 | [facility] | | | | | M/uL | [facility] | | | | | | [facility] | | | | | | C[facility] - | | | | | | LABORATORY | | + + + + + + | Hemoglobin | 11.4 (L) | 11.5 - 16.0 | [facility] | | | | | g/dL | [facility] | [facility] | [facility] | | | | | | [facility] - | | | | | | LABORATORY | | + + + + + + | Hematocrit | 34.8 | 34.0 - 47.0 % | [facility] | | | | | | [facility] | | | | | | [facility] - | | | | | | LABORATORY | | + + + + + + | MCV | 86.4 | 83.0 - 101.0 fL | [facility] | | | | | | [facility] | | | | | | [facility] | | | | | | [facility] - | | | | | | LABORATORY | | + + + + + + | MCH | 28.3 | 28.0 - 35.0 pg | [facility] | | | | | | [facility] | [facility] | [facility] | | | | | | [facility] - | | | | | | LABORATORY | | + + + + + + | MCHC | 32.8 | 32.0 - 36.0 | [facility] | | | | | g/dL | [facility] | | | [facility] | | [facility] | | | | | | C[facility] - | | | | | | LABORATORY | | + + + + + + | RDW-CV | 15.5 (H) | <15.0 % | [facility] | | | | | [facility] | [facility] | [facility] | | | | | | [facility] - | | | | | | LABORATORY | | + + + + + + | RDW-SD | 49.2 (H) | 35.1 - 46.3 fL | [facility] | | | | | [facility] | | [facility] | [facility] | | | | | | [facility] - | | | | | | LABORATORY | | + + + + + + | Platelet | 300 | 140 - 440 K/uL | [facility] | | | Count | | | [facility] | | | | | | [facility] | | | | | | C[facility] - | | | | | | LABORATORY | | + + + + + + | MPV | 9.8 | 6.5 - 12.4 fL | [facility] | | | | | | [facility] | | | | | | [facility] | | | | | | C[facility] - | | | | | | LABORATORY | | + + + + + + | % nRBC | 0 | 0 - 2 per 100 | [facility] | | | | | WBC's | [facility] | | | | | | [facility] | | | | | | CENTER - | | | | | | LABORATORY | | + + + + + + | Absolute | 0.00 | 0.00 - 0.01 | [facility] | | | nRBC | | K/uL | [facility] | [...] + | [facility] | [address] | [place] | [phone] | | [facility] | | [address] | | | - LABORATORY | | | | + + + + + CBC no Differential (01/10/2019 6:56 AM PDT) + + + + + + | Component | Value | Ref Range | Performed | Pathologist | | | | | At | Signature | + + + + + + | WBC | 13.5 (H) | 4.0 - 11.0 K/uL | [facility] | | | | | | [facility] | | [facility] | | [facility] | | | | | | [facility] - | | | | | | LABORATORY | | + + + + + + | RBC | 4.09 | 3.70 - 5.20 | [facility] | | | | | M/uL | [facility] | | | [facility] | | [facility] | | | | | | C[facility] - | | | | | | LABORATORY | | + + + + + + | Hemoglobin | 11.4 (L) | 11.5 - 16.0 | [facility] | | | | | g/dL | [facility] | | | | | | [facility] | | | | | | C[facility] - | | | | | | LABORATORY | | + + + + + + | Hematocrit | 35.1 | 34.0 - 47.0 % | [facility] | | | | | | [facility] | | | [facility] | [facility] | | | | | | [facility] - | | | | | | LABORATORY | | + + + + + + | MCV | 85.8 | 83.0 - 101.0 fL | [facility] [...] + + + + | MCHC | 32.5 | 32.0 - 36.0 | [facility] | | | | | g/dL | [facility] | | | | | | [facility] | | | | | | CENTER - | | | | | | LABORATORY | | + + + + + + | RDW-CV | 15.4 (H) | <15.0 % | [facility] | | | | | [facility] | | [facility] | [facility] | | | | | | [facility] - | | | | | | LABORATORY | | + + + + + + | RDW-SD | 47.9 (H) | 35.1 - 46.3 fL | [facility] | | | | | | [facility] | | | [facility] | | [facility] | | | | | | C[facility] - | | | | | | LABORATORY | | + + + + + + | Platelet | 330 | 140 - 440 K/uL | [facility] | | | Count | | | [facility] | | | | | | [facility] | | | | | | C[facility] - | | | | | | LABORATORY | | + + + + + + | MPV | 10.0 | 6.5 - 12.4 fL | [facility] | | | | | | [facility] | | | [facility] | | [facility] | | | | | | C[facility] - | | | | | | LABORATORY | | + + + + + + | % nRBC | 0 | 0 - 2 per 100 | [facility] | | | | | WBC's | [facility] | | | | | | [facility] | | | | | | CENTER - | | | | | | LABORATORY | | + + + + + + | Absolute | 0.00 | 0.00 - 0.01 | [facility] | | | nRBC | | K/uL | [facility] | [...] + + | [facility] | [address] | [place] | [phone] | | [facility] | | [address] | | | - LABORATORY | | | | + + + + + Type and Screen (01/10/2019 6:56 AM PDT) + + + + + + | Component | Value | Ref Range | Performed | Pathologist | | | | | At | Signature | + + + + + + | ABO | A | | [facility] | | | | | | [facility] | | [facility] | [facility] | | | | | | C[facility] - | | | | | | BLOOD BANK | | + + + + + + | Rh Type | Negative | | [facility] | | | | | [facility] | | [facility] | [facility] | | | | | | [facility] - | | | | | | BLOOD BANK | | + + + + + + | Antibody | Negative | | [facility] | | | Screen | | | [facility] | | | | | | [facility] | | | | | | CENTER - | | | | | | BLOOD BANK | | + + + + + + + + | Specimen | + + | Blood | + + + + + + + | Performing | Address | City/State/Zipcode | Phone Number | | Organization | | | | + + + + + | [facility] | [address] | [place] | | | [facility] | | [address] | | | - BLOOD BANK | | | | + + + + + Rupture of Membranes (01/10/2019 4:19 AM PDT) + + + + + + | Component | Value | Ref Range | Performed | Pathologist | | | | | At | Signature | + + + + + + | Rupture of | Positive (A) | Negative | [facility] | | | | | [facility] | | | [facility] | | | MEDICAL | | | | | | CENTER - | | | | | | LABORATORY | | + + + + + + + + | Specimen | + + | Body Fluid - | | Tracheal syrinx | | (body structure) | + + + + + + + | Performing | Address | City/State/Zipcode | Phone Number | | Organization | | | | + + + + + | [facility] | [address] | [place] | [phone] | | [facility] | | [address] | | | - LABORATORY | | | | + + + + + Culture,Strep Group B (01/06/2019) + + + + + + | Component | Value | Ref Range | Performed | Pathologist | | | | | At | Signature | + + + + + + | GBS result, | Negative | Negative | | | | External | | | | | + + + + + + + + | Specimen | + + | Tissue - Structure | | of lower third of | | vagina (body | | structure) | + + Rubella Ab, IgG (07/06/2018) + + + + + + | Component | Value | Ref Range | Performed | Pathologist | | | | | At | Signature | + + + + + + | Rubella, | Equivocal | | | | | External | | | | | + + + + + + + + | Specimen | + + | Blood | + + Rapid Plasma Reagin, Qual (07/06/2018) + + + + + + | Component | Value | Ref Range | Performed | Pathologist | | | | | At | Signature | + + + + + + | RPR, | Non-Reactive | Non-Reactive | | | | External | | | | | + + + + + + + + | Specimen | + + | Blood | + + HIV 1 and 2 Ab, Reflex (07/06/2018) + + + + + + | Component | Value | Ref Range | Performed | Pathologist | | | | | At | Signature | + + + + + + | HIV, | Non-Reactive | Non-Reactive | | | | External | | | | | + + + + + + + + | Specimen | + + | Blood | + + Hepatitis B Surface Ag (07/06/2018) + + + + + + | Component | Value | Ref Range | Performed | Pathologist | | | | | At | Signature | + + + + + + | HBsAg, | Non-Reactive | Non-Reactive | | | | External | | | | | + + + + + + + + | Specimen | + + | Blood | + + C. trachomatis and N. gonorrhoeae, NAAT (07/06/2018) + + + + + + | Component | Value | Ref Range | Performed | Pathologist | | | | | At | Signature | + + + + + + | Chlamydia, | Negative | Negative | | | | External | | | | | + + + + + + C. TRACHOMATIS AND N. GONORRHOEAE AND T. VAGINALIS, NAAT (07/06/2018) + + + + + + | Component | Value | Ref Range | Performed | Pathologist | | | | | At | Signature | + + + + + + | GC External | Negative | Negative | | | + + + + + + Antibody Screen (07/06/2018) + + + + + + | Component | Value | Ref Range | Performed | Pathologist | | | | | At | Signature | + + + + + + | Antibody | Negative | Negative | | | | Screen, | | | | | | External | | | | | + + + + + + + + | Specimen | + + | Blood | + + documented in this encounter Visit Diagnoses + + | Diagnosis | + + | care and examination immediately after delivery - Primary | + + documented in this encounter Administered Medications + +--------+---------+------+------+------+ | Medication Order | MAR | Action | Dose | Rate | Site | | | Action | Date | | | | + +--------+---------+------+------+------+ + +---+ | acetaminophen (TYLENOL) tablet | | | 325-650 mg 325-650 mg, Oral, | | | EVERY 4 HOURS PRN, Mild Pain, | | | Starting 01/10/19 at 1353, | | | | | + +---+ | | | + +---+ | aluminum & magnesium | | | hydroxide-simethicone (MAALOX | | | PLUS REGULAR STRENGTH) 200-200-20 | | | mg/5 mL suspension 15 mL 15 mL, | | | Oral, EVERY 4 HOURS PRN, | | | Indigestion, Starting 01/10/19 | | | at 1353, Shake well., | | + +---+ | | | + +---+ | benzocaine (AMERICAINE | | | HEMORRHOIDAL) 20% rectal ointment | | | Rectal, EVERY 6 HOURS PRN, | | | Hemorrhoidal Pain, Starting Tue | | | 01/10/19 at 1353, | | + +---+ | | | + +---+ + +-------+ +---+---+---+ | benzocaine 20%-menthol | Given | 01/13/20 | | | | | (DERMOPLAST) topical spray | | 19 6:31 | | | | | Topical, EVERY 6 HOURS PRN, Pain, | | PM PDT | | | | | Starting 01/10/19 at 1353, | | | | | | | | | | | | | + +-------+ +---+---+---+ + +---+ | | | + +---+ | bisacodyl (DULCOLAX) | | | suppository 10 mg 10 mg, Rectal, | | | DAILY PRN, Constipation, | | | Starting 01/10/19 at 1353, | | | | | + +---+ | | | + +---+ | calcium carbonate (TUMS) | | | chewable tablet 1,000 mg 1,000 | | | mg, Oral, EVERY 8 HOURS PRN, | | | Indigestion, Starting 01/10/19 | | | at 1353, | | + +---+ | | | + +---+ | carboprost (HEMABATE) injection | | | 250 mcg 250 mcg, Intramuscular, | | | EVERY 15 MIN PRN, Post- | | | hemorrhage, Starting 01/10/19 | | | at 1353, May give only after | | | delivery. May repeat every 15-90 | | | minutes. Not to exceed 8 | | | doses/24 hours. Do not give if | | | history of asthma., | | + +---+ | | | + +---+ + +-------+ +--------+---+---+ | docusate sodium (COLACE) | Given | 01/11/20 | 200 mg | | | | capsule 200 mg 200 mg, Oral, | | 19 9:02 | | | | | NIGHTLY, First dose on Tue | | PM PDT | | | | | 01/10/19 at 2100, Hold for loose | | | | | | | stools, | | | | | | + +-------+ +--------+---+---+ + +---+ | | | + +---+ | HYDROcodone-acetaminophen | | | (NORCO) 5-325 mg per tablet 1-2 | | | tablet 1-2 tablet, Oral, EVERY 4 | | | HOURS PRN, Pain, Starting Tue | | | 01/10/19 at 1353, If ineffective | | | or not tolerated, use oxycodone | | | if ordered., | | + +---+ | | | + +---+ | ibuprofen (ADVIL,MOTRIN) tablet | | | 600 mg 600 mg, Oral, EVERY 6 | | | HOURS PRN, Pain, Starting Tue | | | 01/10/19 at 1353, If urine output | | | is less than 240 mL/8 hours (30 | | | mL/hr) or if signs of bleeding, | | | contact MD and hold ibuprofen., | | | | | + +---+ | | | + +---+ | labetalol (TRANDATE) 5 mg/mL | | | injection 20 mg 20 mg, | | | Intravenous, ONCE PRN, SBP >= 160 | | | or DBP >= 105 for initial | | | treatment of maternal | | | hypertension per protocol, | | | Starting 01/10/19 at 1353, For | | | 1 dose, Begin continuous | | | monitoring if undelivered and | | | fetus is viable. If severe BP | | | persist for 15min or more, give | | | labetalol 20mg IV over 2min. | | | Notify OB provider for additional | | | orders. Repeat BP in 10 min. | | | Acute cocaine and amphetamine use | | | (including methamphetamine) is a | | | contraindication for labetalol | | | use., | | + +---+ | | | + +---+ + +---------+ +--------+-------+---+ | lactated ringers (LR) bolus | New Bag | 01/11/20 | 1,000 | 500 | | | 1,000 mL 1,000 mL, Intravenous, | | 19 10:43 | mLs | mL/hr | | | Administer over 2 Hours, ONCE | | AM PDT | | | | | PRN, For SBP < 90mmHg, Starting | | | | | | | 01/10/19 at 0930, For 1 dose, | | | | | | | Intra-op | | | | | | + +---------+ +--------+-------+---+ +---+---+ | | | +---+---+ + +---------+ +---+-------+---+ | lactated ringers (LR) infusion | New Bag | 01/11/20 | | 125 | | | at 125 mL/hr, Intravenous, | | 19 12:48 | | mL/hr | | | CONTINUOUS, Starting Wed01/10/19 | | PM PDT | | | | | at 0630, Labor and Delivery | | | | | | + +---------+ +---+-------+---+ + +---+ | | | + +---+ | lactated ringers (LR) infusion | | | at 100 mL/hr, Intravenous, | | | CONTINUOUS, Starting 01/10/19 | | | at 1415, Discontinue IV fluid | | | when tolerating PO well, | | | | | + +---+ | | | + +---+ | lanolin ointment Topical, PRN, | | | Dry Skin, for moist wound | | | healing, Starting 01/10/19 at | | | 1353, Apply to nipples. May keep | | | at bed side., | | + +---+ | | | + +---+ | loperamide (IMODIUM) capsule | | | 2-4 mg 2-4 mg, Oral, PRN, | | | Diarrhea, Starting 01/10/19 at | | | 1353, May give only after | | | delivery. Give 4mg with 1st dose | | | of hemabate, then 2 mg PRN after | | | each loose stool up to a maximum | | | of 16 mg/day (do not give stool | | | softners or laxatives until | | | diarrhea is resolved)., | | | | | + +---+ | | | + +---+ | magnesium hydroxide (MILK OF | | | MAGNESIA) 400 mg/5 mL suspension | | | 30 mL 30 mL, Oral, NIGHTLY PRN, | | | Constipation, Starting Tue | | | 01/10/19 at 1353, Karson well., | | | | | + +---+ | | | + +---+ + +-------+ +---------+---+ + | lpmyduk-gkiea-onvnqnr (M-M-R | Given | 01/12/20 | 0.5 mLs | | Arm-Left | | II) vaccine injection 0.5 mL 0.5 | | 19 9:53 | | | Upper | | mL, Subcutaneous, ONE TIME | | AM PDT | | | | | VACCINE, 01/10/19 at 1415, For | | | | | | | 1 dose, Administer prior to | | | | | | | discharge if titer | | | | | | | non-immune and patient agrees | | | | | | | (notify physician if patient | | | | | | | refuses). Nurse to discontinue if | | | | | | | not indicated., | | | | | | + +-------+ +---------+---+ + + +---+ | | | + +---+ | methylergonovine (METHERGINE) | | | injection 0.2 mg 0.2 mg, | | | Intramuscular, PRN, Bleeding, if | | | BP < 140/90, Starting 01/10/19 | | | at 1353, May repeat x 1. May | | | give only after delivery. | | | Consult provider if patient is | | | hypertensive., | | + +---+ | | | + +---+ | metoclopramide (REGLAN) tablet | | | 10 mg 10 mg, Oral, EVERY 4 HOURS | | | PRN, Nausea, Vomiting, Starting | | | 01/10/19 at 1353, Use if | | | ondansetron and prochlorperazine | | | ineffective after 30 minutes or | | | not ordered, | | + +---+ | | | + +---+ | miSOPROStol (CYTOTEC) tablet | | | 600 mcg 600 mcg, Oral, PRN, | | | Post- hemorrhage, Starting | | | 01/10/19 at 1353, For 1 dose, | | | If general anesthesia give per | | | rectum. May give only after | | | delivery., | | + +---+ | | | + +---+ + +-------+ +---------+---+---+ | miSOPROStol (CYTOTEC) tablet | Given | 01/11/20 | 800 mcg | | | | 800 mcg 800 mcg, Rectal, PRN, | | 19 1:20 | | | | | Post- hemorrhage, Starting | | PM PDT | | | | | 01/10/19 at 0602, For 1 dose, | | | | | | | If unable to administer orally. | | | | | | | May give only after delivery., | | | | | | | | | | | | | + +-------+ +---------+---+---+ + +---+ | | | + +---+ | miSOPROStol (CYTOTEC) tablet | | | 800 mcg 800 mcg, Rectal, PRN, | | | Post- hemorrhage, Starting | | | 01/10/19 at 1353, For 1 dose, | | | If unable to administer orally. | | | May give only after delivery., | | | | | + +---+ | | | + +---+ | ondansetron (ZOFRAN ODT) | | | disintegrating tablet 4 mg 4 mg, | | | Oral, EVERY 6 HOURS PRN, Nausea, | | | Vomiting, Starting 01/10/19 | | | at 1353, First line agent, | | | | | + +---+ | | | + +---+ + +---------+ + +---------+---+ | oxytocin in saline (PITOCIN) 30 | New Bag | 01/11/20 | 2 | 2 mL/hr | | | units/500 mL (60 delgado-units/mL) | | 19 10:42 | delgado-un | | | | infusion 0-999 delgado-units/min | | AM PDT | its/min | | | | (0-999 mL/hr), at 0-999 mL/hr, | | | | | | | Intravenous, TITRATED, Starting | | | | | | | 01/10/19 at 0630, Low Dose | | | | | | | (Cervical Ripening) Management: | | | | | | | Dose 1-4 mU/min. Begin infusion | | | | | | | at 1 mU/min for 60 minutes, | | | | | | | Increase to 2 mU/min for 60 | | | | | | | minutes, Increase to 4 mU/min and | | | | | | | continue at this level until | | | | | | | Blanco score of 7 or more. | | | | | | | Maximum dose for cervical | | | | | | | ripening = 4mU/min. Standard | | | | | | | (Augmentation/Induction) | | | | | | | Management: Dose 0-40 mU/min. | | | | | | | Begin infusion at 1-2 mU/minute. | | | | | | | Increase at no greater than 2 | | | | | | | mU/min every 30 minutes, until | | | | | | | adequate labor. Maximum standard | | | | | | | dose for augmentation/induction | | | | | | | = 20 mU/min. Call provider to | | | | | | | increase above 20 mU/min. Do not | | | | | | | increase above 40 mU/min. Do not | | | | | | | increase rate if there is | | | | | | | tachysystole ( > 5 contractions | | | | | | | in 10 minutes averaged over 30 | | | | | | | minutes) or concern regarding | | | | | | | tracing. For tachysystole, | | | | | | | indications or increased | | | | | | | baseline uterine tone, notify | | | | | | | provider and stop or decrease | | | | | | | oxytocin infusion per unit policy | | | | | | | until the indication has ceased. | | | | | | | Restart the infusion per policy | | | | | | | or at 50% or less of the previous | | | | | | | rate. Third Stage | | | | | | | Management/Immediate : | | | | | | | Dose 0-999 mU/min. Vaginal | | | | | | | delivery: After delivery of | | | | | | | anterior shoulder or placenta, | | | | | | | 350 mL/hr x hour, then 100 | | | | | | | mL/hr x 3.5 hours. May stop after | | | | | | | 4 hours post-delivery. Titrate | | | | | | | to control bleeding. May | | | | | | | discontinue if fundus firm, | | | | | | | bladder not distended and patient | | | | | | | tolerating oral fluids and pain | | | | | | | meds. delivery: | | | | | | | Anesthesia will manage oxytocin | | | | | | | intraoperatively. Post anesthesia | | | | | | | care, 350 mL/hr x hour, then | | | | | | | 100 mL/hr x 3.5 hours. May stop | | | | | | | after 4 hours post-delivery. | | | | | | | Titrate to control bleeding. May | | | | | | | discontinue if fundus firm, | | | | | | | bladder not distended and patient | | | | | | | tolerating oral fluids and pain | | | | | | | meds., Use oxytocin for | | | | | | | management of: Third stage, Labor | | | | | | | and Delivery | | | | | | + +---------+ + +---------+---+ +---+---+ | | | +---+---+ + + + + +-------+---+ | oxytocin in saline (PITOCIN) 30 | Rate/Dos | 01/11/20 | 999 | 999 | | | units/500 mL (60 delgado-units/mL) | e Change | 19 1:14 | delgado-un | mL/hr | | | infusion 0-999 delgado-units/min | | PM PDT | its/min | | | | (0-999 mL/hr), at 0-999 mL/hr, | | | | | | | Intravenous, CONTINUOUS PRN, to | | | | | | | control bleeding, Starting Tue | | | | | | | 01/10/19 at 1353, For 24 hours, | | | | | | | Stop if bleeding is controlled, | | | | | | | bladder not distended, | | | | | | + + + + +-------+---+ + + + +---------+---+ | Rate/Dose Change | 01/11/20 | 2 | 2 mL/hr | | | | 19 12:30 | delgado-un | | | | | PM PDT | its/min | | | + + + +---------+---+ | Rate/Dose Change | 01/11/20 | 4 | 4 mL/hr | | | | 19 11:30 | delgado-un | | | | | AM PDT | its/min | | | + + + +---------+---+ + +---+ | | | + +---+ | pramoxine (PROCTOFOAM) 1% foam | | | Topical, 3 TIMES DAILY PRN, | | | Itching, Hemorrhoids, Starting | | | e 01/10/19 at 1353, | | + +---+ | | | + +---+ + +-------+ + +---+---+ | 27-0.8 mg multivitamin | Given | 01/12/20 | 1 tablet | | | | 1 tablet 1 tablet, Oral, DAILY, | | 19 9:53 | | | | | First dose on Wed01/10/19 at | | AM PDT | | | | | 1415, | | | | | | + +-------+ + +---+---+ +---+---+ | | | +---+---+ + +-------+ +---------+---+ + | rho(D) immune globulin | Given | 01/13/20 | 300 mcg | | Deltoid- | | (RHOGAM,HYPERRHO S/D) injection | | 19 6:26 | | | Left | | 300 mcg 300 mcg, Intramuscular, | | PM PDT | | | | | ONE TIME VACCINE, 01/10/19 at | | | | | | | 1415, For 1 dose, Administer 1 | | | | | | | dose within 72 hours of delivery | | | | | | | if candidate and patient agrees. | | | | | | | Notify MD if patient refuses. | | | | | | | Nurse to discontinue if not | | | | | | | indicated., | | | | | | + +-------+ +---------+---+ + + +---+ | | | + +---+ | sodium phosphate (FLEET) enema | | | 133 mL 133 mL, Rectal, DAILY | | | PRN, Constipation, Starting Tue | | | 01/10/19 at 1353, | | + +---+ | | | + +---+ | tranexamic acid (CYKLOKAPRON) | | | 1,000 mg in sodium chloride 0.9% | | | 50 mL IVPB bolus 1,000 mg, | | | Intravenous, at 360 mL/hr, EVERY | | | 30 MIN PRN, Post- | | | hemorrhage, Starting 01/10/19 | | | at 1353, For 2 doses, | | + +---+ | | | + +---+ documented in this encounter
--- OUTSIDE RECORDS SUMMARY | ~2020-02-26 | XMS | Encounter Summary ---
Demographics + + + | Address | [address] | | | [place] [address] | + + + | Home Phone | | + + + | Preferred Language | Unknown | + + + | Marital Status | Single | + + + | Restorationism Affiliation | Unknown | + + + | Race | Unknown | + + + | Ethnic Group | Unknown | + + + Author + + + | Author | [facility] | | | and [place] | + + + | Organization | [facility] | | [...] [address] | | | | | [address] | | + + + + + Care Team Providers + +------+ + | Care Senior Recruitment Consultant Name | Role | Phone | + +------+ + | Rach Quinteros MD | PCP | | + +------+ + Reason for Visit + + + | Reason | Comments | + + + | Medication Refill | | + + + Encounter Details +--------+--------+ + + + | Date | Type | Department | Care Team | Description | +--------+--------+ + + + | 06/04/ | Refill | [facility] | Rach Quinteros MD | Medication Refill | | 2019 | | [facility] [place] | [address] | | | | | [address] | [place] | | | | | [place] | [address] | | | | | [address] | | | | | | [phone] | | | +--------+--------+ + + + Social History + +-------+ [...]
--- OUTSIDE RECORDS SUMMARY | ~2020-02-26 | XMS | Encounter Summary ---
Demographics + + + | Address | [address] | | | [place] [address] | + + + | Home Phone | | + + + | Preferred Language | Unknown | + + + | Marital Status | Single | + + + | Jew Affiliation | Unknown | + + + | Race | Unknown | + + + | Ethnic Group | Unknown | + + + Author + + + | Author | [facility] | | | and [place] | + + + | Organization | [facility] | | | [...] [address] | | | | | [address] | | + + + + + Care Team Providers + +------+ + | Care Legal Examiner Name | Role | Phone | + [...] + + | 05/10/ | Emergency | [facility] | Alexei Howell, | Acute viral syndrome | | 2018 | | [facility] | [address] [address] | (Primary Dx); | | | | CENTER [address] | [place] | Paresthesia of right | | | | [place] | [place] [address] | upper extremity | | | | [address] | [phone] | | | | | [phone] | | | +--------+ + + + [...] be sent through Care Everywhere.Viral Syndrome (Adult) (Afghan)documented in this encounter Medications at Time of [...]
--- OUTSIDE RECORDS SUMMARY | ~2020-02-26 | XMS | Encounter Summary ---
Demographics + + + | Address | [address] | | | [place] [address] | + + + | Home Phone | | + + + | Preferred Language | Unknown | + + + | Marital Status | Single | + + + | Sabianist Affiliation | Unknown | + + + | Race | Unknown | + + + | Ethnic Group | Unknown | + + + Author + + + | Author | [facility] | | | and [place] | + + + | Organization | [facility] | | | and [...] Apt | | | | | [address] [place] | | | | | [address] | | + + + + + Care Team Providers + +------+ + | Care House Principal Name | Role | Phone | + +------+ + | No, Physician | PCP | Unavailable | + +------+ + Reason for Visit + + + | Reason | Comments | + + + | Consult | | + + + Encounter Details +--------+ + + + + | Date | Type | Department | Care Team | Description | +--------+ + + + + | 01/18/ | Hospital | [facility] | Mayra Mcmahan | Insufficient | | 2019 | Encounter | [facility] | Angi Cha DO | (Primary | | | | PROCEDURES [address] | [address] | Dx) | | | | [place], | [place], [place] | | | | | [place] [address] | [address] | | | | | [phone] | | | +--------+ + + + [...] + + documented as of this encounter Medications at Time of Discharge [...] + documented as of this encounter Progress Notes Maci King RN - 01/18/2019 2:16 PM PDTThe infants weight today is 5lb 1.2oz. The mother reports,"The baby takes about 2 ounces of formula. She is fed about ever y three hours during the day. During the night we have been letting her just sleep. I have not been able to breast feed because she seems upset when I try to. Then I get stressed ou t too. I pumped for an hour the other day and I got milk. About an ounce. I have not been pumping since then". The infant is able to obtain her latch with a nipple shield, Randee mixon repeated attempts to keep the baby latched the baby's ac/pc weight is 2cc. The mother is unable to hand express any colostrum following this attempt on both breasts. The mother adv ised to pump for 15 min every 3 hours to promote an increase in her milk supply. She is inv ited to return for a follow-up with Sonya to help with her ability to breast feed. She is not willing to do more at the breast with SNS etc because of the stress this causes. Mavis instructed to watch for feeding cues and to wait no longer then three hours between feedings until the baby is over her weight. Mavis does express the feelings of stress and dep ression are causing her to cry frequently. She is to see Dr Mcmahan this afternoon and s he will discuss these feelings with her also. She reports, "I don't notice a increase in th e Baby Blues related to any one thing. I live with my sister and her family right now and i t's just noisy. I like it quieter. There's laundry for me to do piled higher then I am ganesh l. It's just hard right now". She reports, I have had counciling in the past and there are some medications that help when I feel like this. Rest, Nutrition and hydration with [facility] support for evaluation of breast feeding and a safe place to discuss her emotional need s promoted. [facility] umchiquita in this encounter Plan of Treatment Not on filedocumented as of this encounter Visit Diagnoses + + | Diagnosis | + + | Insufficient - Primary Failure of , unspecified as to episode of | | care | + + documented in this encounter
--- OUTSIDE RECORDS SUMMARY | ~2020-02-26 | XMS | Encounter Summary ---
Demographics + + + | Address | [address] | | | [place] [address] | + + + | Home Phone | | + + + | Preferred Language | Unknown | + + + | Marital Status | Single | + + + | Baptism Affiliation | Unknown | + + + | Race | Unknown | + + + | Ethnic Group | Unknown | + + + Author + + + | Author | [facility] | | | and [place] | + + + | Organization | [facility] | | | and [...] [address] | | | | | [address] | | + + + + + Care Team Providers + +------+ + | Care Manager Hospital Name | Role | Phone | + [...] + | 05/20/ | Emergency | [facility] | Mukund Jasso, | Postoperative pain | | 2015 | | MED CTR EM[facility] | MD [address] | (Primary Dx); [place] | | | | CENTER [address] | [place], [place] | throat | | | | [place], [place] | [address] | | | | | [address] | | | | | | [phone] | | | +--------+ + + + [...] be sent through Care Everywhere.ADULT TONSILLEC TYRELL (MACEDONIAN)documented in this encounter Medications at Time of [...] + | [facility] | [address] | [place] | [phone] | | [facility] | | [address] | | | - LABORATORY | | [...] + | [facility] | [address] | [place], [place] | [phone] | | [facility] | | [address] | | | - LABORATORY | | [...] | ---- | | | 05/20/2015 16:02 [facility]. | | | [facility] Emergency -Throat pain/swelling, | | | (post-tonsillectomy) 03/14/2015 20:36 [facility] | | | [facility] Emergency null INPATIENT VISIT TRACKING | | | (1 MO.) Visit Date Location | | | Type Dx / Complaint | | | -------- ---- | | | 05/15/2015 07:27 [facility]. | | | [facility] Surgery -Chronic tonsillitis ED | | | VISIT COUNT (1 YR.) Visits Medicaid [place] Dx Location | | | ------ --------- 1 0 | | | [facility] 3 0 | | | [facility] 7 | | | 0 [facility] 11 | | | 0 Total Note: Visits indicate total | | | known visits. Medicaid [place] Dx are the number of primary diagnoses on | | | the [facility]'s non-emergent dx list. | | | | [...]
--- OUTSIDE RECORDS SUMMARY | ~2020-02-26 | XMS | Encounter Summary ---
Demographics + + + | Address | [address] | | | [place] [address] | + + + | Home Phone | | + + + | Preferred Language | Unknown | + + + | Marital Status | Single | + + + | Hinduism Affiliation | Unknown | + + + | Race | White | + + + | Ethnic Group | Not or | + + + Author + + + | Author | [facility] | + + + | Organization | [facility] | + + + | Address | Unknown | + + + | Phone | Unavailable | + + + Support + + + + + | Name | Relationship | Address | Phone | + + + + + | Marissa | ASHLEY | [address] | | | [address] | | [place] [address] | | + + + + + Care Team Providers + +------+ + | Care Hospital Admissions Clerk Name | Role | Phone | + +------+ + PCP | Unavailable | + +------+ + Encounter Details +--------+ + + + + | Date | Type | Department | Care Team | Description | +--------+ + + + + | 03/01/ | ED Progress | Emergency Medicine | Report, Emergency | ED Progress Note | | 1995 | | [address] | [place] | | | | Note-Transc | [address] | | | | | [place] | [place], [place] | | | | | | [address] | | | +--------+ + + + [...]
--- OUTSIDE RECORDS SUMMARY | ~2020-02-26 | XMS | Encounter Summary ---
Demographics + + + | Address | [address] | | | [place] [address] | + + + | Home Phone | | + + + | Preferred Language | Unknown | + + + | Marital Status | Single | + + + | Jainism Affiliation | Unknown | + + + | Race | Unknown | + + + | Ethnic Group | Unknown | + + + Author + + + | Author | [facility] | | | and [place] | + + + | Organization | [facility] | | | [...] [address] [place] | | | | | [address] | | + + + + + Care Team Providers + +------+ + | Care Telecom Sales Consultant Name | Role | Phone | + +------+ + | Angel Talamantes MD | PCP | | + +------+ + Reason for Visit + + + | Reason | Comments | + + + | Appointment Question | | + + + Encounter Details +--------+ + + + + | Date | Type | Department | Care Team | Description | +--------+ + + + + | 07/06/ | Telephone | [facility] | Angel Talamantes, | Appointment Question | | 2018 | | [facility] [place] | [address] | | | | | [address] | [place] | | | | | [place] | [id number] | | | | | [address] | | | | | | [phone] | | | +--------+ + + + [...]
--- OUTSIDE RECORDS SUMMARY | ~2020-02-26 | XMS | Encounter Summary ---
Demographics + + + | Address | [address] | | | [place] [address] | + + + | Home Phone | | + + + | Preferred Language | Unknown | + + + | Marital Status | Single | + + + | Sikh Affiliation | Unknown | + + + | Race | Unknown | + + + | Ethnic Group | Unknown | + + + Author + + + | Author | [facility] | | | and [place] | + + + | Organization | [facility] | | | [...] [id number] | | | | | [address] | | + + + + + Care Team Providers + +------+ + | Care Account Engineer Name | Role | Phone | + [...] | | | | | | [place], [place] | | | | | | | [address] | | | | | | | Phone: | | | | | | | [phone] | | | | | | | Fax: | | | | | | | [phone] | | +--------+ + + + + [...] | | | | | | | [address] | | | | | | | Phone: | | | | | | | [phone] | | | | | | | Fax: | | | | | | | [phone] | | +--------+ + + + + [...] + + | 01/10/ | Hospital | [facility] | Mayra Mcmahan | care and | | 2019 - | Encounter | [facility] | Angi Cha DO | examination | | | | [address] | [address] | immediately after | | 01/12/ | | [address] | [place] | delivery (Primary | | 2019 | | [address] | [address] | Dx) | | | | [phone] | | | +--------+ + + + [...] 01/12/2019 ATTENDING CLINICIAN: Mayra Mcmahan DO PRIMARY MAINTENANCE PAINTER: No Physician on file HISTORY OF PRESENT ILLNESS 23 y.o. with IUP @ 37w1d presented with spontaneous labor. Delivery uncomplicated and rapid. She pushed once and delivered a viable . HOSPITAL COURSE: Mavis Clakre is a 23 y.o.-year-old, now female (Estimated [...] also encouraged her to establish care at [facility]. D/c to border today with precautions Electronically [...] St | [place] | | | [facility] | | [address] | | | - BLOOD BANK | [...] + | [facility] | [address] | [place] | [phone] | | [facility] | | [address] | | | - LABORATORY | | [...] ST. | [address] | [place] | [phone] | | [facility] | | [address] | | | - LABORATORY | | [...] St | [place] | | | [facility] | | [address] | | | - BLOOD BANK | [...] [address] | [place] | [phone] | | [facility] | | [address] | | | - LABORATORY | | [...] + +---+ + +-------+ +---------+---+ + | rzhpboa-[id number] (M-M-R | Given | 01/12/20 | 0.5 [...]
--- OUTSIDE RECORDS SUMMARY | ~2020-02-26 | XMS | Encounter Summary ---
Demographics + + + | Address | [address] | | | [place] [address] | + + + | Home Phone | | + + + | Preferred Language | Unknown | + + + | Marital Status | Single | + + + | Baptist Affiliation | Unknown | + + + | Race | Unknown | + + + | Ethnic Group | Unknown | + + + Author + + + | Author | [facility] | | | and [place] | + + + | Organization | [facility] | | | and [...] [address] | | | | | [address] | | + + + + + Care Team Providers + +------+ + | Care Metal Cnc Operator Name | Role | Phone | + +------+ + | Angel Talamantes MD | PCP | | + +------+ + Reason for Visit + + + | Reason | Comments | + + + | Initial | | | Visit | | + + + Encounter Details +--------+ + + + + | Date | Type | Department | Care Team | Description | +--------+ + + + + | 07/06/ | Initial | [facility] | Angel Talamantes, | [place]: 10w2d | | 2018 | | [facility] | [address] | | | | | [address] | [place] | | | | | [place] | [address] | | | | | [address] | | | | | | [phone] | | | +--------+ + + + [...] + + + | Blood Pressure | 122/70 | 07/06/2018 10:26 AM | | | | | PDT | | + + + + + | Pulse | 85 | 07/06/2018 10:26 AM | | | | | PDT | | + + + + + | Temperature | 36.3 C (97.4 F) | 07/06/2018 10:26 AM | | | | | PDT | | + + + + + | Respiratory Rate | 18 | 07/06/2018 10:26 AM | | | | | PDT | | + + + + + | Oxygen Saturation | 97% | 07/06/2018 10:26 AM | | | | | PDT | | + + + + + | Inhaled Oxygen | - | - | | | Concentration | | | | + + + + + | Weight | 98.5 kg (217 lb 2.5 | 07/06/2018 10:26 AM | | | | oz) | PDT | | + + + + + | Height | - | - | | + + + + + | Body Mass Index | 45.39 | 05/10/2018 12:29 PM | | | | | PDT | | + + + + + documented in this encounter Progress Notes Angel Talamantes MD - 07/06/2018 10:00 AM PDTPatient states that was unplanned. S he is excited and nervous. She is currently staying with her mom in [place]. She st ates that she does not have regular housing or transportation. Patient's boyfriend Eusebio arredondo got a job at [employer]. Patient is currently unemployed but looking into [employer]. She states that she is trying to get state resources, but has a hard time getting r ides. Encouraged patient to prioritize her goals. Patient states that she has been vomiting blood clots last , Wednesday, and Wednesday. Sh sanjuana has history of GERD, but has not taken omeprazole. She states that she blew her nose and t here was a lot of blood from her nose. Patient states that she has been having cramps multiple times a week for the past 2 weeks. She states that she also has chronic low back pain. Patient states that she has npt had an appetite and has to force herself to eat every day. Patient has significant history of depression due to Bipolar disorder. She previously was s eeing a counselor, but due to lack of transportation, has not seen one in awhile. Patient pr eviously attempted suicide twice by overdosing on medication. She states she has not attempt ed this in a couple years, but continues to have daily thoughts of suicide. She previously w as taking Effexor, but states that she did not find it helpful. She states that she was taki ng something that helped her when she moved back from [place], but cannot recall what it was called. She states that she will call with the information. Will consider placing patiroseann t back on this medication if safe for . Will consider Latuda with the diagnosis of Bipolar disorer. IOB moderate risk due to depression, smoking, marijuana use and multiple social f actors. Dating and past medical history reviewed including identification of risk factors Pap smear and cultures completed. Labs reviewed and ordered. Reviewed medical plan for . Education materials provided and reviewed. Reviewed call system and appropriate means to contact provider after hours. Reviewed appropriate use of Women's Services. Reviewed scheduling and upcoming appointments. Encouraged making small doable goals. Helped with prioritization of goals. I Cassy Bueno am acting as a scribe on behalf of, and in the presence of MD Cassy Souza, [facility]. 07/06/2018 I, Dr. Angel Talamantes, personally performed the services described in this documentation, as scribed in my presence and it is both accurate and complete. Angel Talamantes MD 07/06/18 documented in this en counter Plan of Treatment + + +--------+ + + | Name | Type | Priori | Associated Diagnoses | Order Schedule | | | | ty | | | + + +--------+ + + | Pap Smear | Pathology | Routin | Cervical cancer | Ordered: 07/06/2018 | | | and | e | screening | | | | Cytology | | | | + + +--------+ + + documented as of this encounter Procedures + +--------+ + + + | Procedure Name | Priori | Date/Time | Associated Diagnosis | Comments | | | ty | | | | + +--------+ + + + | PAP SMEAR | Routin | 07/06/2018 | | Results for this | | | e | 12:00 AM | | procedure are in the | | | | PDT | | results section. | + +--------+ + + + documented in this encounter Results Drugs of Abuse, Screen, Urine (07/06/2018 11:34 AM PDT) + + + + + + | Component | Value | Ref Range | Performed | Pathologist | | | | | At | Signature | + + + + + + | Amphetamine | Negative | Negative | [facility] | | | Screen, | | | [facility] | | | Urine | | | [facility] | | | | | | [facility] | | | | | | LABORATORY | | + + + + + + | Barbiturate | Negative | Negative | [facility] | | | s Screen, | | | [facility] | | | Urine | | | MEDICAL | | | | | | PARK | | | | | | LABORATORY | | + + + + + + | Benzodiazep | Negative | Negative | [facility] | | | sintia | | | [facility] | | | Screen, | | | MEDICAL | | | Urine | | | PARK | | | | | | LABORATORY | | + + + + + + | Cannabinoid | Positive (A) | Negative | [facility] | | | s Screen, | | | [facility] | | | Urine | | | MEDICAL | | | | | | PARK | | | | | | LABORATORY | | + + + + + + | Cocaine | Negative | Negative | [facility] | | | Screen, | | | [facility] | | | Urine | | | MEDICAL | | | | | | PARK | | | | | | LABORATORY | | + + + + + + | Methadone | Negative | Negative | [facility] | | | Screen, | | | [facility] | | | Urine | | | MEDICAL | | | | | | PARK | | | | | | LABORATORY | | + + + + + + | Opiates | Negative | Negative | [facility] | | | Screen, | | | [facility] | | | Urine | | | MEDICAL | | | | | | PARK | | | | | | LABORATORY | | + + + + + + + + | Specimen | + + | Urine | + + + + + + + | Performing | Address | City/State/Zipcode | Phone Number | | Organization | | | | + + + + + | [facility] | [address] | [place] | [phone] | | [facility] | | [address] | | | [facility] | | | | + + + + + HIV AG/AB, 4th Gen, Reflex (07/06/2018 11:34 AM PDT) + + + + + + | Component | Value | Ref Range | Performed | Pathologist | | | | | At | Signature | + + + + + + | HIV 1/2 Ab | Non Reactive | Non Reactive | [facility] | | | and P24 Ag | | | LAB [facility] | | | | | | - [facility] | | + + + + + + + + | Specimen | + + | Blood | + + + + + | Narrative | Performed At | + + + | Performed at: [address] - [facility] [address], | REFERENCE LAB | | [place], [place] [id number] Welding Machine Operator Thermit: Arnol Villarreal MD, Phone: | [facility] | | [phone] | | + + + + + + + + | Performing | Address | City/State/[facility] | Phone Number | | Organization | | | | + + + + + | REFERENCE LAB | [address] | [place], [place] | [phone] | | [facility] | [facility] | [address] | | + + + + + Vitamin D, Deficiency Screen (25-Hydroxy) (07/06/2018 11:34 AM PDT) + +--------+ + + + | Component | Value | Ref Range | Performed | Pathologist | | | | | At | Signature | + +--------+ + + + | Vitamin D, | 20 (L) | 30 - 80 ng/mL | [facility] | | | [address] | | | ST. | | | | | | MEDICAL | | | | | | CENTER - | | | | | | LABORATORY | | + +--------+ + + + + + | Specimen | + + | Blood | + + + + + + + | Performing | Address | City/State/Zipcode | Phone Number | | Organization | | | | + + + + + | [facility] | [address] | [place] | [phone] | | [facility] | | [address] | | | - LABORATORY | | | | + + + + + Culture, Urine (07/06/2018 11:34 AM PDT) + + + + + + | Component | Value | Ref Range | Performed | Pathologist | | | | | At | Signature | + + + + + + | Culture | 50,000 CFU/ml Mixed Gram | | [facility] | | | | Positive FloraComment: | | [facility] | | | | Suggests contamination | | MEDICAL | | | | with urogenital or skin | | CENTER - | | | | mario.No further work-up | | LABORATORY | | | | to follow. | | | | + + + [...] ST. | [address] | [place], [place] | [phone] | | [facility] | | [address] | | | - LABORATORY | | | | + + + + + Hepatitis C Ab (07/06/2018 11:34 AM PDT) + + + + + + | Component | Value | Ref Range | Performed | Pathologist | | | | | At | Signature | + + + + + + | Hepatitis C | <0.1Comment: | 0.0 - 0.9 s/co | [facility] | | | Ab | | ratio | LAB [facility] | | | | | | - [facility] | | | | Negative: < 0.8 | | | | | | | | | | | | | | | | | | Indeterminate: 0.8 - 0.9 | | | | | | | | | | | | | | | | | | Positive: > 0.9 | | | | | | The [facility] recommends that | | | | | | a positive HCV antibody | | | | | | result be followed up | | | | | | with a HCV Nucleic Acid | | | | | | Amplification test | | | | | | ([id number]). | | | | + + + + + + + + | Specimen | + + | Blood | + + + + + | Narrative | Performed At | + + + | Performed at: 01 - [facility] [address], | REFERENCE LAB | | [place], [place] [id number] Welding Machine Operator Thermit: Arnol Villarreal MD, Phone: | [facility] | | [phone] | | + + + + + + + + | Performing | Address | City/State/Zipcode | Phone Number | | Organization | | | | + + + + + | REFERENCE LAB | [address] | [place], [place] | [phone] | | [facility] | [facility] | [address] | | + + + + + Pap Smear (07/06/2018 12:00 AM PDT) + + | Specimen | + + | | + + + + + | Narrative | Performed At | + + + | ORDERING PHYSICIAN: Angel Talamantes MD PATIENT NAME: | [place] [facility] | | January LEDY MICHAEL GENDER: F : 1995 | [facility] | | Prior History: No cases found. SPECIMEN(S): Cervical/ | | | Endocervical CLINICAL HISTORY: Routine Pap Smear CYTOLOGIC | | | INTERPRETATION: Negative for intraepithelial lesion or malignancy. | | | MOLECULAR PATHOLOGY RESULTS: Neisseria gonorrhea Negative | | | Chlamydia trachomatis Negative TECHNICAL NOTES: To improve | | | disease detection, this slide is screened using automated intelligence | | | technology. This specimen was received in a vial of liquid-based | | | fixative and was processed using thin layer Pap technology. | | | SPECIMEN ADEQUACY: Satisfactory for evaluation. Endocervical and/or | | | benign metaplastic cells absent. ADDITIONAL NOTES: The Pap smear | | | is a screening test designed to aid in the detection of premalignant | | | and malignant conditions of the uterine cervix. It is not a diagnostic | | | procedure and should not be used as the sole means of detecting | | | cervical cancer. Both false-positive and false-negative reports do | | | occur. This document contains private and confidential health | | | information by state and federal law. If you have received in error, | | | please call [phone]. ADDITIONAL NOTES.: The Aptima Combo 2 | | | (AC2) assay is a target amplification nucleic acid probe test that | | | utilizes target capture for the in vitro qualitative detection and | | | differentiation of ribosomal RNA (rRNA) from Chlamydia trachomatis | | | (CT) and/or Neisseria gonorrheae (NG) to aid in the diagnosis of | | | chlamydial and/or gonococcal urogenital disease using the Collison | | | System. A negative result does not rule out the presence of a | | | CT or NG infection because accurate results are dependent on adequate | | | specimen collection and storage, absence of inhibitors, and sufficient | | | rRNA to be detected. A positive result obtained after therapeutic | | | treatment cannot be interpreted as indicating the presence of viable | | | CT or NG since target rRNA may persist. Specimens collected using | | | ThinPrep PreservCyt Pap media and Aptima Collection Kits for | | | endocervical, vaginal, male urethral and male urine are FDA-approved. | | | SurePath Pap, UniSwab, IncyteSwab, and Aptima female urine specimen | | | collections are not FDA-approved but performance characteristics have | | | been validated at the performing laboratory. [facility] is | | | certified under CLIA as qualified to perform high complexity clinical | | | laboratory testing. This test is used for clinical purposes. It | | | should not be regarded as investigational or for research. The | | | Aptima Combo 2 assay is a FDA approved target amplification nucleic | | | acid probe test that utilizes target capture for the in vitro | | | qualitative detection and differentiation of ribosomal RNA (rRNA) | | | from Chlamydia trachomatis (CT) and/or Neisseria gonorrhoeae (GC) | | | organisms in ThinPrep PreservCyt Pap Collection Fluid to aid in the | | | diagnosis of chlamydial and/or gonococcal urogenital disease using | | | the PANTHER System. Specimens collected in SurePath Pap Collection | | | Fluid, UniSwab media, or IncyteSwab media have not been approved by | | | the FDA for the Aptima Combo 2 assay but performance characteristics | | | have been validated at [facility], [id number] [facility] | | | [place] [address]. [facility] is certified under CLIA | | | as qualified to perform high-complexity clinical laboratory testing. | | | This test is used for clinical purposes. It should not be regarded | | | as investigational or for research. PERFORMING LABORATORY: | | | Technical preparation was performed by [facility], [id number] | | | [place] [address] (Comparative Sociology Professor: Avery | | | Laisha Hinton; CLIA#: [id number]). Diagnostician: Mary Luke | | | CT(ASCP) Hand Clerical Verifier Diagnostician: Fabian Mccallum CT(ASCP) | | | Hand Clerical Verifier Electronically Signed 07/11/2018 | | + + + + +---------+ + + | Performing | Address | City/State/Zipcode | Phone Number | | Organization | | | | + +---------+ + + | [facility] | | | | | [facility] | | | | + +---------+ + + documented in this encounter Visit Diagnoses + + | Diagnosis | + + | Encounter for supervision of normal first in first trimester - Primary | | Supervision of normal first | + + | Bipolar disorder, current episode mixed, moderate (HCC) Bipolar I disorder, most | | recent episode (or current) mixed, moderate | + + | Agoraphobia 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
--- OUTSIDE RECORDS SUMMARY | ~2020-02-26 | XMS | Clinical Summary ---
Demographics + + + | Address | [address] | | | [place] [address] | + + + | Home Phone | | + + + | Preferred Language | Unknown | + + + | Marital Status | Single | + + + | Jew Affiliation | Unknown | + + + | Race | Unknown | + + + | Ethnic Group | Unknown | + + + Author + + + | Author | [facility] (Historical as of | | | 06-03-19) | + + + | Organization | [facility] (Historical as of | | | 06-03-19) | + + + | Address | Unknown | + + + | Phone | Unavailable | + + + Support + + + + + | Name | Relationship | Address | Phone | + + + + + | Grass,Paty S | ECON | [address] | | | | | [place] [address] | | + + + + + Care Team Providers + +------+ + | Care Paraplanner Name | Role | Phone | + +------+ + | Dr. Bin | PP | Unavailable | + +------+ + Allergies Not on File Current Medications Not on file Active Problems Not on file Social History + +-------+ +--------+------+ | Tobacco [...] on file | | + + + Plan of Treatment Not on file Results Not on filefrom Last 3 Months"
--- OUTSIDE RECORDS SUMMARY | ~2020-02-26 | XMS | Encounter Summary ---
Demographics + + + | Address | [address] | | | [place] [address] | + + + | Home Phone | | + + + | Preferred Language | Unknown | + + + | Marital Status | Single | + + + | Methodist Affiliation | Unknown | + + + | Race | Unknown | + + + | Ethnic Group | Unknown | + + + Author + + + | Author | [facility] | | | and [place] | + + + | Organization | [facility] | | | [...] [id number] [place] | | | | | [address] | | + + + + + Care Team Providers + +------+ + | Care Value Analysis Coordinator Name | Role | Phone | + [...] | +--------+ + + + + | 06/23/ | Telephone | [facility] | No, Physician p | Initial | | 2018 | | [facility] | | Visit | | | | [address] | | | | | | [place], [place] | | | | | | [address] | | | | | | [phone] | | | +--------+ + + + [...] Not on filedocumented as of this encounter Results HCG, Serum, Quant (07/06/2018 11:34 AM PDT) + + + + + + | Component | Value | Ref Range | Performed | Pathologist | | | | | At | Signature | + + + + + + | hCG Quant, | [phone] (H)Comment: | 0 - 6 mIU/mL | [facility] | | | Serum | REFERENCE RANGE: | | [facility] | | | | | | [facility] | | | | B-hCG | | [facility] | | | | LEVELGestational Age | | LABORATORY | | | | Expected hCG | | | | | | Values | | | | | | | | | | | | 0 | | | | | | .2-1 week | | | | | | 5-50 | | | | | | mIU/mL1-2 weeks | | | | | | 50-500 | | | | | | mIU/mL2-3 weeks | | | | | | 100-5,000 | | | | | | mIU/mL3-4 weeks | | | | | | 500-10,000 | | | | | | mIU/mL4-5 weeks | | | | | | 1,000-50,000 | | | | | | mIU/mL5-6 weeks | | | | | | 10,000-100,000 | | | | | | mIU/mL6-8 weeks | | | | | | 15,000-200,000 | | | | | | mIU/mL2-3 months | | | | | | 10,000-100,000 | | | | | | mIU/mL | | | | + + + + + + + + | Specimen | + + | Blood | + + + + + + + | Performing | Address | City/State/Zipcode | Phone Number | | Organization | | | | + + + + + | [facility] | [address] | [place], [place] | [phone] | | [facility] | | [address] | | | [facility] | | | | + + + + + US OB < 14 Weeks W Transvaginal (07/05/2018 2:33 PM PDT) + + | Specimen | + + | | + + + + + | Narrative | Performed At | + + + | US OB < 14 WEEKS W TRANSVAGINAL 07/05/2018 2:33 PM HISTORY: SIZE | [facility] | | AND DATES SUPERVISION OF NORMAL FIRST TRIMESTER. | | | COMPARISON: None. PROTOCOL: Torres scale and Doppler images of the | | | fetus with transabdominal and transvaginal imaging. FINDINGS: | | | The LMP is unknown. Gestational age by dates is unknown. CRL: 3.1 | | | cm, 10 weeks 1 day Mean sac diameter: 3.7 cm, 9 weeks 2 days Yolk | | | sac: Not seen Amnion: Not seen Heart rate: 167 bpm Composite | | | ultrasound gestational age: 9 weeks 5 days Uterus: A gestational | | | sac is visualized within the uterine lumen. There is a small | | | subchorionic hemorrhage. Right ovary: Not seen. Left ovary: | | | Parenchyma is normal. The ovary measures 2.7 x 2.6 x 1.9 cm. | | | Adnexa: Normal Cul-de-sac: Normal IMPRESSION - Single living | | | intrauterine with ultrasound age of 9 weeks 5 days. | | | Dictated and Signed by: Jose Maddox MD Electronically signed: | | | 07/06/2018 8:16 AM | | + + + + + | Procedure Note | + + | Vasiliy, Rad Results In - 07/06/2018 8:20 AM PDT US OB < 14 WEEKS W TRANSVAGINAL | | 07/05/2018 2:33 PMHISTORY: SIZE AND DATESSUPERVISION OF NORMAL FIRST | | TRIMESTER.COMPARISON: None.PROTOCOL: Torres scale and Doppler images of the fetus with | | transabdominal andtransvaginal imaging.FINDINGS:The LMP is unknown. Gestational age by | | dates is unknown.CRL: 3.1 cm, 10 weeks 1 dayMean sac diameter: 3.7 cm, 9 weeks 2 | | daysYolk sac: Not seenAmnion: Not seenHeart rate: 167 bpmComposite ultrasound | | gestational age: 9 weeks 5 daysUterus: A gestational sac is visualized within the | | uterine lumen. There is asmall subchorionic hemorrhage.Right ovary: Not seen.Left ovary: | | Parenchyma is normal. The ovary measures 2.7 x 2.6 x 1.9 cm. Adnexa: ItnbxeXob-qq-imw: | | NormalIMPRESSION -Single living intrauterine with ultrasound age of 9 weeks 5 | | days.Dictated and Signed by: Jose Maddox MD Electronically signed: 07/06/2018 8:16 AM | |The LMP is unknown. Gestational age by dates is unknown. | | | |CRL: 3.1 cm, 10 weeks 1 day | |Mean sac diameter: 3.7 cm, 9 weeks 2 days | |Yolk sac: Not seen | |Amnion: Not seen | |Heart rate: 167 bpm | |Composite ultrasound gestational age: 9 weeks 5 days | | | |Uterus: A gestational sac is visualized within the uterine lumen. There is a | |small subchorionic hemorrhage. | | | |Right ovary: Not seen. | | | |Left ovary: Parenchyma is normal. The ovary measures 2.7 x 2.6 x 1.9 cm. | | | |Adnexa: Normal | | | |Cul-de-sac: Normal | | | |IMPRESSION - | |Single living intrauterine with ultrasound age of 9 weeks 5 days. | | | |Dictated and Signed by: Jose Maddox MD | | Electronically signed: 07/06/2018 8:16 AM | + + + +---------+ + + | Performing | Address | City/State/Zipcode | Phone Number | | Organization | | | | + +---------+ + + | [facility] | | | | + +---------+ + + documented in this encounter Visit Diagnoses + + | Diagnosis | + + | Positive test - Primary examination or test, positive result | + + documented in this encounter"
--- OUTSIDE RECORDS SUMMARY | ~2020-02-26 | XMS | Encounter Summary ---
Demographics + + + | Address | [address] | | | [place] [address] | + + + | Home Phone | | + + + | Preferred Language | Unknown | + + + | Marital Status | Single | + + + | Druze Affiliation | Unknown | + + + | Race | White | + + + | Ethnic Group | Not or | + + + Author + + + | Author | [facility] | + + + | Organization | [facility] | + + + | Address | Unknown | + + + | Phone | Unavailable | + + + Support + + + + + | Name | Relationship | Address | Phone | + + + + + | Marissa | ASHLEY | [address] | | | [place] | | [place] [address] | | + + + + + Care Team Providers + +------+ + | Care Threshing Department Supervisor Name | Role | Phone | + +------+ + PCP | Unavailable | + +------+ + Encounter Details +--------+ + + + + | Date | Type | Department | Care Team | Description | +--------+ + + + + | 01/14/ | Results | [facility] | Zaki Triana, | | | 2009 | Only | Department | MD [facility] | | | | | | [facility] [place] | | | | | | [address] | | | | | | [facility] | | | | | | [place] [address] | | | | | | [phone] | | | | | | | [...] | + +--------+ + + + | DERMATOPATHOLOGY(WET | Routin | 01/14/2010 | | Results for this | | [facility]) | e | | | procedure are in the | | | | | | results section. | + +--------+ + + + documented in this encounter Results DERMATOPATHOLOGY(WET [place]) (01/14/2010) + + + + + + | Component | Value | Ref Range | Performed | Pathologist | | | | | At | Signature | + + + + + + | DERMATOPATH | SOURCE OF SPECIMEN:A | | [facility] | | | OLOGY(WET | FIRST TISSUE LEVEL IV | | DERMATOPATH | | | MNT) | [id number] CLINICAL | | OLOGY | | | | DESCRIPTION:Punch, 4 mm, | | | | | | lt. scalp vertex; | | | | | | dermal fibrotic band | | | | | | freely mobile withskin; | | | | | | R/O scar vs other | | | | | | neoplasm. GROSS | | | | | | DESCRIPTION:Lt. scalp | | | | | | vertex. The specimen | | | | | | is received in formalin, | | | | | | labeled lt. | | | | | | scalpvertex, with the | | | | | | patient's name and | | | | | | consists of a pale richard, | | | | | | punch biopsymeasuring | | | | | | 0.4 x 0.5 cm. The | | | | | | specimen is bisected and | | | | | | entirely submitted | | | | | | inone cassette. | | | | | | MICROSCOPIC | | | | | | DESCRIPTION:There is a | | | | | | mostly uninvolved | | | | | | epidermis overlying | | | | | | numerous terminal | | | | | | anagenfollicles | | | | | | extending into the | | | | | | subcutaneous fat and | | | | | | surrounded by | | | | | | sebaceousglands. There | | | | | | is a sparse perivascular | | | | | | lymphocytic infiltrate. | | | | | | Deepersections show | | | | | | similar findings. | | | | | | DIAGNOSIS:SPARSE | | | | | | SUPERFICIAL DERMATITIS. | | | | | | NOTE: Despite | | | | | | the clinical | | | | | | presentation, there is | | | | | | no evidence of scar or | | | | | | aneoplasm in these | | | | | | sections where a | | | | | | sampling situation may | | | | | | be present. | | | | | | KPW:emr01/20/10 My | | | | | | electronic signature | | | | | | indicates that I have | | | | | | personally reviewed | | | | | | alldiagnostic slides, | | | | | | the gross and/or | | | | | | microscopic portion of | | | | | | thisreport and | | | | | | formulated the final | | | | | | diagnosis. | | | | | | Rendering Diagnostician: | | | | | | Issac Lozano | | | | | | BiggPathologistEliani | | | | | | jesus Signed 01/20/2010 | | | | + + + + + + + + | Specimen | + + | Other | + + + + + + + | Performing | Address | City/State/Zipcode | Phone Number | | Organization | | | | + + + + + | [facility] | [address] | [place] [address] | | | DERMATOPATHOLOGY | [address] | | | + + + + + documented in this encounter Visit Diagnoses Not on filedocumented in this encounter"
--- OUTSIDE RECORDS SUMMARY | ~2020-02-26 | XMS | Encounter Summary ---
Demographics + + + | Address | [address] | | | [place] [address] | + + + | Home Phone | | + + + | Preferred Language | Unknown | + + + | Marital Status | Single | + + + | Nondenominational Affiliation | Unknown | + + + | Race | Unknown | + + + | Ethnic Group | Unknown | + + + Author + + + | Author | [facility] | | | and [place] | + + + | Organization | [facility] | | | and [...] [address] [place] | | | | | [address] | | + + + + + Care Team Providers + +------+ + | Care Certified Coatings Inspector Name | Role | Phone | + +------+ + PCP | Unavailable | + +------+ + Encounter Details +--------+ + + + + | Date | Type | Department | Care Team | Description | +--------+ + + + + | 05/11/ | Emergency | [facility] | Sonia Carl, | Injury, Other and | | 2006 | | [facility] | DO [address] | Unspecified, Hand, | | | | EMERGENCY CENTER | [place] [address] | except Finger | | | | [address] | [phone] | | | | | [place], [place] | | | | | | [address] | | | | | | [phone] | | | +--------+ + + + [...] + | Diagnosis | + + | Injury, other and unspecified, hand, except finger | + + documented in this encounter"
--- OUTSIDE RECORDS SUMMARY | ~2020-02-26 | XMS | Encounter Summary ---
Demographics + + + | Address | [address] | | | [place] [address] | + + + | Home Phone | | + + + | Preferred Language | Unknown | + + + | Marital Status | Single | + + + | Sikh Affiliation | Unknown | + + + | Race | Unknown | + + + | Ethnic Group | Unknown | + + + Author + + + | Author | [facility] | | | and [place] | + + + | Organization | [facility] | | | [...] [address] | | | | | [address] | | + + + + + Care Team Providers + +------+ + | Care Jboss Developer Name | Role | Phone | + +------+ + | No, Physician | PCP | Unavailable | + +------+ + Reason for Visit + + + | Reason | Comments | + + + | Establish Care | | + + + Encounter Details +--------+ + + + + | Date | Type | Department | Care Team | Description | +--------+ + + + + | 04/06/ | Telephone | [facility] | Rach Quinteros MD | Establish Care | | 2019 | | MEDICINE [place] | [address] | | | | | [address] | [place] | | | | | [place], [place] | [address] | | | | | [address] | | | | | | [phone] | | | +--------+ + + + [...]
--- OUTSIDE RECORDS SUMMARY | ~2020-02-26 | XMS | Encounter Summary ---
Demographics + + + | Address | [address] | | | [place] [address] | + + + | Home Phone | | + + + | Preferred Language | Unknown | + + + | Marital Status | Single | + + + | Pentecostalism Affiliation | Unknown | + + + | Race | Unknown | + + + | Ethnic Group | Unknown | + + + Author + + + | Author | [facility] | | | and [place] | + + + | Organization | [facility] | | [...] [address] | | | | | [address] | | + + + + + Care Team Providers + +------+ + | Care Mirror Specialist Name | Role | Phone | [...] + + | 01/18/ | Hospital | [facility] | Mayra Mcmahan | Insufficient | | 2019 | Encounter | MED CTR OB | Angi Cha DO | (Primary | | | | PROCEDURES [address] | [address] | Dx) | | | | [place], | [place], [place] | | | | | [place] [address] | [address] | | | | | [phone] | | | +--------+ + + + [...] to discuss her emotional need s promoted. [facility] umchiquita in this encounter Plan of Treatment Not on filedocumented as of this encounter Visit Diagnoses + + | Diagnosis | + + | Insufficient - Primary Failure of , unspecified as to episode of | | care | + + documented in this encounter
--- OUTSIDE RECORDS SUMMARY | ~2020-02-26 | XMS | Encounter Summary ---
Demographics + + + | Address | [address] | | | [place] [address] | + + + | Home Phone | | + + + | Preferred Language | Unknown | + + + | Marital Status | Single | + + + | Yarsanism Affiliation | Unknown | + + + | Race | Unknown | + + + | Ethnic Group | Unknown | + + + Author + + + | Author | [facility] | | | and [place] | + + + | Organization | [facility] | | | [...] [address] [place] | | | | | [address] | | + + + + + Care Team Providers + +------+ + | Care Home Agent Name | Role | Phone | + +------+ + | Rach Quinteros MD | PCP | | + +------+ + Reason for Visit + + + | Reason | Comments | + + + | Care | | + + + Encounter Details +--------+ + + + + | Date | Type | Department | Care Team | Description | +--------+ + + + + | 02/16/ | Telephone | [facility] | Christine, | Care | | 2019 | | MED CTR OB | Maci Gonzalez RN | | | | | PROCEDURES [address] | | | | | | [place], | | | | | | [place] [address] | | | | | | [phone] | | | +--------+ + + + [...]
--- OUTSIDE RECORDS SUMMARY | ~2020-02-26 | XMS | Encounter Summary ---
Demographics + + + | Address | [address] | | | [place] [address] | + + + | Home Phone | | + + + | Preferred Language | Unknown | + + + | Marital Status | Single | + + + | Zoroastrian Affiliation | Unknown | + + + | Race | Unknown | + + + | Ethnic Group | Unknown | + + + Author + + + | Author | [facility] | | | and [place] | + + + | Organization | [facility] | | | [...] [address] | | | | | [address] [place] | | | | | [address] | | + + + + + Care Team Providers + +------+ + | Care Desulphurizer Operator Name | Role | Phone | + +------+ + | No, Physician | PCP | Unavailable | + +------+ + Reason for Visit +--------+ + | Reason | Comments | +--------+ + | Cough | | +--------+ + Encounter Details +--------+ + + + + | Date | Type | Department | Care Team | Description | +--------+ + + + + | 10/13/ | Emergency | [facility] | Yeyo Page MD | Bronchitis (Primary | | 2015 | | [facility] CTR EMER[facility]Y | [address] | Dx); Wheezing | | | | CENTER [address] | [place], [place] | | | | | [place], [place] | [address] | | | | | [address] | | | | | | [phone] | | | +--------+ + + + [...] + + + | Blood Pressure | 129/98 | 10/13/2015 12:22 PM | | | | | PST | | + + + + + | Pulse | 110 | 10/13/2015 1:00 PM | | | | | PST | | + + + + + | Temperature | 35.9 C (96.6 F) | 10/13/2015 12:22 PM | | | | | PST | | + + + + + | Respiratory Rate | 20 | 10/13/2015 1:00 PM | | | | | PST | | + + + + + | Oxygen Saturation | 99% | 10/13/2015 1:00 PM | | | | | PST | | + + + + + | Inhaled Oxygen | - | - | | | Concentration | | | | + + + + + | Weight | 90.7 kg (200 lb) | 10/13/2015 12:22 PM | | | | | PST | | + + + + + | Height | 147.3 cm (4' 10") | 10/13/2015 12:22 PM | | | | | PST | | + + + + + | Body Mass Index | 41.8 | 10/13/2015 12:22 PM | | | | | PST | | + + + + + documented in this encounter Discharge Instructions Instructions Yeyo Page MD - 10/13/2015Steroid as prescribed Antibiotic as prescribed Inhaler as needed Return for worsening symptoms, other complaints AttachmentsThe following attachments cannot be sent through Care Everywhere.BRONCHITIS, ANT IOBIOTIC TREATMENT (ADULT) ([place])documented in this encounter Medications at Time of Discharge + + + +---------+ + + | Medication | Sig | Dispensed | Refills | Start | End Date | | | | | | Date | | + + + +---------+ + + | azithromycin | Take 2 tablets by | 6 | 0 | 10/13/20 | | | (ZITHROMAX) 250 mg | mouth daily x 1 day, | tablet | | 15 | 6 | | tablet | then take 1 tablet | | | | | | | by mouth daily x 4 | | | | | | | days. | | | | | + + + +---------+ + + | metoprolol | Take 25 mg by mouth | | 0 | | | | tartrate (LOPRESSOR) | Daily. | | | | 8 | | 50 mg tablet | | | | | | + + + +---------+ + + | omeprazole | Take 20 mg by mouth | | 0 | | | | (PRILOSEC) 20 mg | every morning | | | | 8 | | capsule | (before breakfast). | | | | | + + + +---------+ + + | oxyCODONE | Take 5 mg by mouth | | 0 | | | | (ROXICODONE) 5 mg | every 4 hours as | | | | 8 | | tablet | needed for Pain. | | | | | + + + +---------+ + + | predniSONE | Take 2 tablets by | 8 | 0 | 10/13/20 | | | (DELTASONE) 20 mg | mouth Daily for 4 | tablet | | 15 | 5 | | tablet | days. | | | | | + + + +---------+ + + | venlafaxine | Take 150 mg [...] + | ED INFORMATION | Routin | 10/13/2015 | | Results for this | | EXCHANGE | e | 12:15 PM | | procedure are in the | | | | PST | | results section. | + +--------+ + + + documented in this encounter Results ED INFORMATION EXCHANGE (10/13/2015 12:15 PM PST) + + | Specimen | + + | | + + + + + | Narrative | Performed At | + + + | ED/UCC VISIT TRACKING (3 MO.) Visit Date | [facility] | | Location Type | | | Dx / Complaint -------- | | | ---- | | | 10/13/2015 12:12 [facility] | | | [facility] -wheezing, coughing | | | 10/08/2015 19:45 [facility] | | | Emergency CONFIDENTIAL INPATIENT VISIT TRACKING (1 MO.) | | | Visit Date LocationTypeDx / Complaint | | | ED VISIT | | | COUNT (1 YR.) Visits Medicaid [place] Dx Location ------ | | | --------- 1 0 | | | [facility] 4 0 | | | [facility] 6 0 | | | [facility] 11 0 | | | Total Note: Visits indicate total known visits. | | | Medicaid [place] Dx are the number of primary diagnoses on the [facility]'s | | | non-emergent dx list. | | | | | | --- [facility] has no Care Guidelines for this patient. [place] | | | Prescription Review PDMP Report (previous six months). Fill Date | | | Drug Description Qty. Prescriber | | | CS MED --------- | | | ---- -- | | | --- 2015-05-16 OXYCODONE HCL 5 MG TABLET 40 | | | [place] 2 42.85 2015-05-15 | | | HYDROCODON-ACETAMIN 7.5-325/15 [address] [place] [address] [address] | | | 2 0.0 12 Month Prescription Summary -Number of | | | CS Rx:3 -Number of CS-II Rx:2 -Total dispensed quantity:252 | | | -Unique Prescribers:2 -Unique Pharmacies:3 -Opioid Rx | | | Count:1 -Long Acting Opioid Rx Count:0 -Benzo Rx Count:1 | | + + + + +---------+ + + | Performing | Address | City/State[facility] | Phone Number | | Organization | | | | + +---------+ + + | [facility] | | | | + +---------+ + + documented in this encounter Visit Diagnoses + + | Diagnosis | + + | Bronchitis - Primary Bronchitis, not specified as acute or chronic | + + | Wheezing | + + documented in this encounter Administered Medications + + + +---------+------+------+ | Medication Order | MAR | Action | Dose | Rate | Site | | | Action | Date | | | | + + + +---------+------+------+ | albuterol (PROVENTIL) 90 | Dispense | 10/13/20 | 2 puffs | | | | mcg/puff inhaler (ED prepack) 2 | to Home | 15 12:53 | | | | | puff 2 puff, Inhalation, ONCE, | | PM PST | | | | | 10/13/15 at 1245, For 1 dose, | | | | | | | Inhale 2 puffs every 4 hours as | | | | | | | directed. Shake Well. Dispense | | | | | | | for home use., | | | | | | + + + +---------+------+------+ +---+---+ | | | +---+---+ + +-------+ +-------+---+---+ | albuterol-ipratropium (DUONEB) | Given | 10/13/20 | 3 mLs | | | | 2.5-0.5 mg/3 mL nebulizer | | 15 12:55 | | | | | solution 3 mL 3 mL, | | PM PST | | | | | Nebulization, RT Once, Sun | | | | | | | 10/13/15 at 1245, For 1 dose | | | | | | + +-------+ +-------+---+---+ +---+---+ | | | +---+---+ + +-------+ +--------+---+---+ | azithromycin (ZITHROMAX) tablet | Given | 10/13/20 | 500 mg | | | | 500 mg 500 mg, Oral, ONCE, Sun | | 15 12:52 | | | | | 10/13/15 at 1245, For 1 dose | | PM PST | | | | + +-------+ +--------+---+---+ +---+---+ | | | +---+---+ + +-------+ +-------+---+---+ | predniSONE (DELTASONE) tablet | Given | 10/13/20 | 40 mg | | | | 40 mg 40 mg, Oral, ONCE, Sun | | 15 12:53 | | | | | 15 at 1245, For 1 dose | | PM PST | | | | + +-------+ +-------+---+---+ +---+---+ | | | +---+---+ documented in this encounter
--- OUTSIDE RECORDS SUMMARY | ~2020-02-26 | XMS | Encounter Summary ---
Demographics + + + | Address | [address] | | | [place] [address] | + + + | Home Phone | | + + + | Preferred Language | Unknown | + + + | Marital Status | Single | + + + | Sabianism Affiliation | Unknown | + + + | Race | White | + + + | Ethnic Group | Not or | + + + Author + + + | Author | [facility] | + + + | Organization | [facility] | + + + | Address | Unknown | + + + | Phone | Unavailable | + + + Support + + + + + | Name | Relationship | Address | Phone | + + + + + | Marissa | ASHLEY | [address] | | | [address] | | [place] [address] | | + + + + + Care Team Providers + +------+ + | Care Parking Manager Name | Role | Phone | + +------+ + PCP | Unavailable | + +------+ + Encounter Details +--------+ + + + + | Date | Type | Department | Care Team | Description | +--------+ + + + + | 01/14/ | Results | [facility] | Zaki Triana, | | | 2009 | Only | Department | [facility] | | | | | | [facility] [place] | | | | | | [address] | | | | | | [facility] | | | | | | [place] [address] | | | | | | [phone] | | | | | | | [...] | DERMATOPATH | | | MNT) | [address] CLINICAL | | OLOGY | | | [...] [facility] | [address] | [place] [address] | | | DERMATOPATHOLOGY | [address] | | | + + + + + documented in this encounter Visit Diagnoses Not on filedocumented in this encounter"
--- OUTSIDE RECORDS SUMMARY | ~2020-02-26 | XMS | Encounter Summary ---
Demographics + + + | Address | [address] | | | [place] [address] | + + + | Home Phone [...] Author | [facility] | | | and [...] [address] | | | | | [address] | | | | | [address] | | + + + + + Care Team Providers + +------+ + | Care Grain Weigher Name | Role | Phone | + +------+ + PCP | Unavailable | + +------+ + Encounter Details +--------+ + + + + | Date | Type | Department | Care Team | Description | +--------+ + + + + | 03/03/ | Hospital | [facility] | Sanjeev Viera, | | | 2004 | Encounter | MED CTR XRAY [address] | | | | | [place] | [place], [place] | | | | | [place], [place] [address] | [address] | | | | | [phone] | | | +--------+ + + + [...]
--- OUTSIDE RECORDS SUMMARY | ~2020-02-26 | XMS | Encounter Summary ---
Demographics + + + | Address | [address] | | | [place] [address] | + + + | Home Phone | | + + + | Preferred Language | Unknown | + + + | Marital Status | Single | + + + | Yazidi Affiliation | Unknown | + + + | Race | Unknown | + + + | Ethnic Group | Unknown | + + + Author + + + | Author | [facility] | | | and [place] | + + + | Organization | [facility] | | | [...] [id number] | | | | | [address] | | + + + + + Care Team Providers + +------+ + | Care Transportation Dispatch Manager Name | Role | Phone | + +------+ + | Angel Talamantes MD | PCP | | + +------+ + Reason for Visit + + + | Reason | Comments | + + + | ER Follow-up | | + + + Encounter Details +--------+ + + + + | Date | Type | Department | Care Team | Description | +--------+ + + + + | 08/04/ | Telephone | [facility] | Angel Talamantes, | ER Follow-up | | 2018 | | MEDICINE [place] | [address] | | | | | [address] | [place], [place] | | | | | [place], [place] | [address] | | | | | [address] | | | | | | [phone] | | | +--------+ + + + [...]
--- OUTSIDE RECORDS SUMMARY | ~2020-02-26 | XMS | Encounter Summary ---
Demographics + + + | Address | [address] | | | [place] [address] | + + + | Home Phone | | + + + | Preferred Language | Unknown | + + + | Marital Status | Single | + + + | Samaritan Affiliation | Unknown | + + + | Race | Unknown | + + + | Ethnic Group | Unknown | + + + Author + + + | Author | [facility] | | | and [...] [id number] [place] | | | | | [address] | | + + + + + Care Team Providers + +------+ + | Care Bone Process Operator Name | Role | Phone | [...] + + | 07/06/ | Telephone | [facility] | Angel Talamantes, | Appointment Question | | 2018 | | MEDICINE [place] | [address] | | | | | [address] | [place] | | | | | [place] | [address] | | | | | [address] | | | | | | [phone] | | | +--------+ + + + [...]
--- OUTSIDE RECORDS SUMMARY | ~2020-02-26 | XMS | Encounter Summary ---
Demographics + + + | Address | [address] | | | [place] [address] | + + + | Home Phone | | + + + | Preferred Language | Unknown | + + + | Marital Status | Single | + + + | Muslim Affiliation | Unknown | + + + | Race | Unknown | + + + | Ethnic Group | Unknown | + + + Author + + + | Author | [facility] | | | and [place] [...] [id number] [place] | | | | | [address] | | + + + + + Care Team Providers + +------+ + | Care Beamster Name | Role | Phone | + +------+ + | Angel Talamantes MD | PCP | | + +------+ + Encounter Details +--------+ + + + + | Date | Type | Department | Care Team | Description | +--------+ + + + + | 01/12/ | Hospital | [facility] | [place], | | | 2011 | Encounter | MED CTR EMERGENCY | MD [address] | | | | | CENTER [address] | [place] | | | | | [place] | [address] | | | | | [address] | | | | | | [phone] | | | +--------+ + + + [...] XR HAND RIGHT 3 + VW | | 01/13/2012 | | Results for this | | | | 7:19 PM | | procedure are in the | | | | PDT | | results section. | + +--------+ + + + documented in this encounter Results XR Hand Right 3 + Vw (01/13/2012 7:19 PM PDT) + + | Specimen | + + | | + + + + + | Narrative | Performed At | + + + | [facility] Diagnostic Imaging Department | [place] | | [address] | [facility] [facility] | | RIGHT HAND CLINICAL HISTORY: | DIAG IMG | | MIDDLE FINGER INJURY. FINDINGS: AP, lateral and oblique views | | | of the right hand show no fracture or bony destructive cadena e. | | | Joint relationships are normal. No radiographic soft tissue | | | changes are present. IMPRESSION: NEGATIVE STUDY OF THE HAND. | | | Dictated Date/Time: 01/14/2012 09:37 Transcribed Date/Time: | | | 01/14/2012 09:41 Evs Manager: <Electronically Signed | | | by Renny Reno MD> 01/15/12 0656 | | + + + + + | Procedure Note | + + | Vasiliy, Rad Conversion - 11/24/2013 5:00 PM [facility] | | Diagnostic Imaging Department [address] [facility] [place] | | RIGHT HAND CLINICAL HISTORY: MIDDLE FINGER INJURY. | | FINDINGS: AP, lateral and oblique views of the right hand show no fracture or bony | | destructive change. Joint relationships are normal. No radiographic soft tissue | | changes are present. IMPRESSION: NEGATIVE STUDY OF THE HAND. Dictated Date/Time: | | 01/14/2012 09:37Transcribed Date/Time: 01/14/2012 09:41Transcriptionist: | | <Electronically Signed by Renny Reno MD> 01/15/1256 | |CLINICAL HISTORY: MIDDLE FINGER INJURY. | | | |FINDINGS: AP, lateral and oblique views of the right hand show no fracture or bony destruc tive cadena | |e. Joint relationships are normal. No radiographic soft tissue changes are present. | | | |IMPRESSION: NEGATIVE STUDY OF THE HAND. | | | |Dictated Date/Time: 01/14/2012 09:37 | |Transcribed Date/Time: 01/14/2012 09:41 | |Evs Manager: | |<Electronically Signed by Renny Reno MD> 01/15/12 0656 | + + + +---------+ + + | Performing | Address | City/State/Zipcode | Phone Number | | Organization | | | | + +---------+ + + | [place] | | | | | [place] | | | | + +---------+ + + documented in this encounter Visit Diagnoses Not on filedocumented in this encounter"
--- OUTSIDE RECORDS SUMMARY | ~2020-02-26 | XMS | Encounter Summary ---
Demographics + + + | Address | [address] | | | [place] [address] | + + + | Home Phone | | + + + | Preferred Language | Unknown | + + + | Marital Status | Single | + + + | Oriental Orthodox Affiliation | Unknown | + + + | Race | Unknown | + + + | Ethnic Group | Unknown | + + + Author + + + | Author | [facility] | | | and [place] | + + + | Organization | [facility] | | [...] [id number] | | | | | [address] | | + + + + + Care Team Providers + +------+ + | Care Credit Collections Analyst Name | Role | Phone | + +------+ + | Rach Quinteros MD | PCP | | + +------+ + Reason for Visit + + + | Reason | Comments | + + + | Medication Prior | | | Authorization | | + + + Encounter Details +--------+ + + + + | Date | Type | Department | Care Team | Description | +--------+ + + + + | 04/11/ | Telephone | [facility] | Rach Quinteros MD | Medication Prior | | 2019 | | [facility] | [address] | Authorization | | | | [address] | [place] | | | | | [place] | [address] | | | | | [address] | | | | | | [phone] | | | +--------+ + + + [...]
--- OUTSIDE RECORDS SUMMARY | ~2020-02-26 | XMS | Encounter Summary ---
Demographics + + + | Address | [address] | | | [place] [address] | + + + | Home Phone | | + + + | Preferred Language | Unknown | + + + | Marital Status | Single | + + + | Nondenominational Affiliation | Unknown | + + + | Race | Unknown | + + + | Ethnic Group | Unknown | + + + Author + + + | Author | [facility] | | | and [place] | + + + | Organization | [facility] | | | [...] [id number] [place] | | | | | [address] | | + + + + + Care Team Providers + +------+ + | Care Cinnamon Grinder Name | Role | Phone | + +------+ + | Angel Talamantes MD | PCP | | + +------+ + Reason for Visit + + + | Reason | Comments | + + + | Injections | | + + + Encounter Details +--------+ + + + + | Date | Type | Department | Care Team | Description | +--------+ + + + + | 07/08/ | Clinical | [facility] | Geneva Hussein, | Rh negative state in | | 2018 | Support | [facility]IC[facility] [place] | DIRECTOR OF PROGRAMMING | antepartum period | | | | [address] | | (Primary Dx) | | | | [place] | | | | | | [address] | | | | | | [phone] | | | +--------+ + + + [...] + documented as of this encounter Progress Marisol Tomas LPN - 07/08/2018 10:45 AM PDTFormatting of this note might be different f rom the original. Administrations This Visit rho(D) immune globulin (RHOGAM,HYPERRHO S/D) injection 300 mcg Admin Date 07/08/2018 Action Given Dose 300 mcg Route Intramuscular Administered By Marisol Rhodes LPN documented in this encounter Plan of Treatment Not on filedocumented as of this encounter Visit Diagnoses + + | Diagnosis | + + | Rh negative state in antepartum period - Primary Rhesus isoimmunization affecting | | management of mother, antepartum condition | + + documented in this encounter Administered Medications + +--------+ +---------+------+ + | Medication Order | MAR | Action | Dose | Rate | Site | | | Action | Date | | | | + +--------+ +---------+------+ + | rho(D) immune globulin | Given | 07/08/20 | 300 mcg | | Glut-Lef | | (RHOGAM,HYPERRHO S/D) injection | | 18 11:05 | | | t | | 300 mcg 300 mcg, Intramuscular, | | AM PDT | | | | | ONE TIME VACCINE, 07/08/18 at | | | | | | | 1130, For 1 dose, Each 1 mcg = 5 | | | | | | | units (300 mcg = 1,500 units), | | | | | | + +--------+ +---------+------+ + +---+---+ | | | +---+---+ documented in this encounter"
--- OUTSIDE RECORDS SUMMARY | ~2020-02-26 | XMS | Encounter Summary ---
Demographics + + + | Address | [address] | | | [place] [address] | + + + | Home Phone [...] + | Author | [facility] | | | and [place] | [...] [id number] [place] | | | | | [address] | | + + + + + Care Team Providers + +------+ + | Care Combination Machine Tool Setter Name | Role | Phone | + +------+ + | Rach Quinteros MD | PCP | | + +------+ + Reason for Visit +--------+ + | Reason | Comments | +--------+ + | Mass | | +--------+ + Encounter Details +--------+---------+ + + + | Date | Type | Department | Care Team | Description | +--------+---------+ + + + | 08/23/ | Office | [facility] | Rach Quinteros MD | Adenopathy, cervical | | 2019 | Visit | MEDICINE [place] | [address] | (Primary Dx); Need | | | | [address] | [place] | for influenza | | | | [place] | [address] | vaccination | | | | [address] | | | | | | [phone] | | | +--------+---------+ + + + [...] + + + | Blood Pressure | 122/82 | 08/23/2019 10:58 AM | | | | | PST | | + + + + + | Pulse | 85 | 08/23/2019 10:58 AM | | | | | PST | | + + + + + | Temperature | 36.3 C (97.3 F) | 08/23/2019 10:58 AM | | | | | PST | | + + + + + | Respiratory Rate | - | - | | + + + + + | Oxygen Saturation | 98% | 08/23/2019 10:58 AM | | | | | PST | | + + + + + | Inhaled Oxygen | - | - | | | Concentration | | | | + + + + + | Weight | 95 kg (209 lb 7 oz) | 08/23/2019 10:58 AM | | | | | PST | | + + + + + | Height | 148.6 cm (4' 10.5") | 08/23/2019 10:58 AM | | | | | PST | | + + + + + | Body Mass Index | 43.03 | 08/23/2019 10:58 AM | | | | | PST | | + + + + + documented in this encounter Progress Notes Rach Quinteros MD - 08/23/2019 10:30 AM PST Subjective: Patient ID: January Ledy Clarke is a 24 y.o. female. Chief Complaint Patient presents with Mass HPI Patient presents in clinic today for a mass that has been on the right side of her neck. Sh sanjuana reports that this has been there for the last 1 weeks and is very tender to touch. She does have topical dermatitis/eczema flare, nearby on her scalp. No fever. 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 Overweight Patellofemoral syndrome Pelvic pain Tachycardia Thrombocytosis (HCC) Viral upper respiratory illness Past Surgical History: Procedure Laterality Date DENTAL SURGERY TONSILLECTOMY AND ADENOIDECTOMY N/A 05/15/2015 Procedure: Tonsillectomy; Surgeon: Alberto Munoz MD; Location: [facility] MAIN OR TOOTH EXTRACTION UPPER GASTROINTESTINAL ENDOSCOPY Family History Problem Relation Age of Onset Diabetes Mother hx Necrotizing fasciitis due to DM Depression Mother Arthritis Maternal Grandmother Asthma Maternal Grandmother Breast cancer Maternal Grandmother 30 Thyroid disease Maternal Grandmother Graves disease Arthritis Maternal Grandfather Asthma Maternal Grandfather Prostate cancer Maternal Grandfather 60 Depression Other Family history Thyroid disease Other Graves disease - family history Diabetes Other Family history Social History Socioeconomic History Marital status: Single [...] baby is Evan - Currently employed at [employer]. reports that she has been smoking. She [...] Current Outpatient Medications Medication Sig Dispense Refill albuterol (PROAIR HFA) 90 mcg/puff inhaler Inhale 2 puffs into the lungs every 6 hours as needed for Wheezing. 18 g 3 ARIPiprazole (ABILIFY) 5 mg tablet TAKE ONE TABLET BY MOUTH ONE TIME DAILY 30 tablet 1 cephalexin (KEFLEX) 500 mg capsule Take 1 capsule by mouth every 6 hours. 40 capsule 0 cloNIDine (CATAPRES) 0.1 mg tablet Take 2 tablets by mouth nightly. 60 tablet 1 sertraline (ZOLOFT) 100 mg tablet TAKE ONE TABLET BY MOUTH ONE TIME DAILY 30 tablet 1 No current facility-administered medications for this visit. Review of Systems Constitutional: Negative for fever and malaise/fatigue. HENT: Negative for congestion, ear discharge, ear pain, sinus pain, sore throat and tinnitu s. Eyes: Negative for blurred vision and pain. Respiratory: Negative for cough and shortness of breath. Cardiovascular: Negative for chest pain, palpitations and leg swelling. Gastrointestinal: Negative for abdominal pain, constipation, diarrhea, heartburn, nausea an d vomiting. Genitourinary: Negative for dysuria. Musculoskeletal: Negative for back pain, joint pain and myalgias. Skin: Negative for rash. Neurological: Negative for dizziness, tingling, weakness and headaches. Psychiatric/Behavioral: Negative for depression. The patient is not nervous/anxious and arceo s not have insomnia. Objective: BP 122/82 | Pulse 85 | Temp 36.3 C (97.3 F) (Temporal) | Ht 1.486 m (4' 10.5") | Wt 95 kg (209 lb 7 oz) | SpO2 98% | ? No | BMI 43.03 kg/m Physical Exam General Appearance: Alert, cooperative, no distress, appears stated age Head: Normocephalic, without obvious abnormality, atraumatic Eyes: PERRL, conjunctiva/corneas clear, EOM's intact Nose: Nares normal, septum midline, mucosa normal, no drainage or sinus tenderness Throat: Lips, mucosa, and tongue normal; teeth and gums normal Neck: Supple, symmetrical, tender, inflammed adenopathy on the right occipital/lateral neck area with surrounding swelling, redness and tenderness. Lungs: No accessory muscle use, breath sounds are clear to auscultation bilaterally, no w heezes, crackles or rhonchi Chest Wall: No tenderness or deformity Heart: Regular rate and rhythm, S1, S2 normal, no murmur, rub or gallop Abdomen: Soft, non-tender Extremities: Extremities normal, atraumatic, no cyanosis, clubbing, or edema Pulses: Radial pulses 2+ and symmetric Skin: Warm and dry; multiple facial piercings in the nose, lips, ears Lymph nodes: Cervical and supraclavicular nodes normal Neurologic: Gait normal Assessment/Plan: 1. Adenopathy, cervical (Primary) - cephalexin (KEFLEX) 500 mg capsule; Take 1 capsule by mouth every 6 hours. Dispense: 40 capsule; Refill: 0 2. Need for influenza vaccination - Influenza *PF 3 yr or >, Quadrivalent PSKT or Vial Other orders - ARIPiprazole (ABILIFY) 5 mg tablet; TAKE ONE TABLET BY MOUTH ONE TIME DAILY Dispense : 30 tablet; Refill: 1 - cloNIDine (CATAPRES) 0.1 mg tablet; Take 2 tablets by mouth nightly. Dispense: 60 ta blet; Refill: 1 - sertraline (ZOLOFT) 100 mg tablet; TAKE ONE TABLET BY MOUTH ONE TIME DAILY Dispense: 30 tablet; Refill: 1 - albuterol (PROAIR HFA) 90 mcg/puff inhaler; Inhale 2 puffs into the lungs every 6 chris rs as needed for Wheezing. Dispense: 18 g; Refill: 3 The patient was satisfied with the care received and voiced understanding of the issues dis cussed and the plan. No follow-ups on file. Electronically signed by Rach Quinteros MD Portions of this report were transcribed using [employer] voice recognition soft zamorano. Although effort was made in correcting the errors; grammatical and sound alike errors may still be present. Cheyanne Garcia Tn dical Polisher And Buffer - 08/23/2019 10:30 AM PST Subjective: Patient ID: January Ledy Clarke is a 24 y.o. female. Chief Complaint Patient presents with Mass HPI Patient presents in clinic today nodule on the back of her neck that has been there for abo ut 1.5 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 Overweight Patellofemoral syndrome Pelvic pain Tachycardia Thrombocytosis (HCC) Viral upper respiratory illness Past Surgical History: Procedure Laterality Date DENTAL SURGERY TONSILLECTOMY AND ADENOIDECTOMY N/A 05/15/2015 Procedure: Tonsillectomy; Surgeon: Alberto Munoz MD; Location: [facility] MAIN OR TOOTH EXTRACTION UPPER GASTROINTESTINAL ENDOSCOPY Family History Problem Relation Age of Onset Diabetes Mother hx Necrotizing fasciitis due to DM Depression Mother Arthritis Maternal Grandmother Asthma Maternal Grandmother Breast cancer Maternal Grandmother 30 Thyroid disease Maternal Grandmother Graves disease Arthritis Maternal Grandfather Asthma Maternal Grandfather Prostate cancer Maternal Grandfather 60 Depression Other Family history Thyroid disease Other Graves disease - family history Diabetes Other Family history Social History Socioeconomic History Marital status: Single [...] baby is Evan - Currently employed at [employer]. reports that she has been smoking. She [...] Dispense Refill ARIPiprazole (ABILIFY) 5 mg tablet TAKE ONE TABLET BY MOUTH ONE TIME DAILY 30 tablet 1 cloNIDine (CATAPRES) 0.1 mg tablet Take 2 tablets by mouth nightly. 60 tablet 1 sertraline (ZOLOFT) 100 mg tablet TAKE ONE TABLET BY MOUTH ONE TIME DAILY 30 tablet 1 No current facility-administered medications for this visit. ROS Objective: BP 122/82 | Pulse 85 | Temp 36.3 C (97.3 F) (Temporal) | Ht 1.486 m (4' 10.5") | Wt 95 kg (209 lb 7 oz) | SpO2 98% | ? No | BMI 43.03 kg/m Physical Exam Assessment/Plan: There are no diagnoses linked to this encounter. The patient was satisfied with the care received and voiced understanding of the issues dis cussed and the plan. No follow-ups on file. Electronically signed by Rach Quinteros MD Portions of this report were transcribed using [employer] voice recognition soft zamorano. Although effort was made in correcting the errors; grammatical and sound alike errors may still be present. [facility] umented in this encounter Plan of Treatment Not on filedocumented as of this encounter Visit Diagnoses + + | Diagnosis | + + | Adenopathy, cervical - Primary Enlargement of lymph nodes | + + | Need for influenza vaccination Need for prophylactic vaccination and inoculation | | against influenza | + + documented in this encounter
--- OUTSIDE RECORDS SUMMARY | ~2020-02-26 | XMS | Encounter Summary ---
Demographics + + + | Address | [address] | | | [place] [address] | + + + | Home Phone | | + + + | Preferred Language | Unknown | + + + | Marital Status | Single | + + + | Evangelical Affiliation | Unknown | + + + | Race | Unknown | + + + | Ethnic Group | Unknown | + + + Author + + + | Author | [facility] | | | and [...] [id number] [place] | | | | | [address] | | + + + + + Care Team Providers + +------+ + | Care Pinball Machine Repairer Name | Role | Phone | [...] + | 07/07/ | Telephone | [facility] | Angel Talamantes, | Results | | 2017 | | MEDIC[facility] [place] | MD [address] | | | | | [address] | [place], [place] | | | | | [place], [place] | [address] | | | | | [address] | | | | | | [phone] | | | +--------+ + + + [...]
--- OUTSIDE RECORDS SUMMARY | ~2020-02-26 | XMS | Encounter Summary ---
Demographics + + + | Address | [address] | | | [place] [address] | + + + | Home Phone [...] Author + + + | Author | [facility] | + + + | Organization | [facility] | + + + | Address | Unknown | + + + | Phone | Unavailable | + + + Support + + + + + | Name | Relationship | Address | Phone | + + + + + | Marissa | ASHLEY | [address] | | | [place] | | [place] [address] | | + + + + + Care Team Providers + +------+ + | Care Cosmetology Educator Name | Role | Phone | + [...] | | | | | arsl[place] | [place], [place] | | | | | | [address] | | | +--------+ + + + [...]
--- OUTSIDE RECORDS SUMMARY | ~2020-02-26 | XMS | Encounter Summary ---
Demographics + + + | Address | [address] | | | [place] [address] | + + + | Home Phone | | + + + | Preferred Language | Unknown | + + + | Marital Status | Single | + + + | Sikhism Affiliation | Unknown | + + + | Race | Unknown | + + + | Ethnic Group | Unknown | + + + Author + + + | Author | [facility] | | | and [place] | + + + | Organization | [facility] | | [...] [id number] | | | | | [address] | | + + + + + Care Team Providers + +------+ + | Care Engraver Ornamental Design Name | Role | Phone | + [...] Follow-up | | 2018 | | MEDICINE [place] | [address] | | | | | [address] | [place], [place] | | | | | [place], [place] | [address] | | | | | [address] | | | | | | [phone] | | | +--------+ + + + [...]
--- OUTSIDE RECORDS SUMMARY | ~2020-02-26 | XMS | Encounter Summary ---
Demographics + + + | Address | [address] | | | [place] [address] | + + + | Home Phone | | + + + | Preferred Language | Unknown | + + + | Marital Status | Single | + + + | Religion Affiliation | Unknown | + + + | Race | Unknown | + + + | Ethnic Group | Unknown | + + + Author + + + | Author | [facility] | | | and [place] [...] [id number] | | | | | [address] | | + + + + + Care Team Providers + +------+ + | Care Light Cleaner Name | Role | Phone | + +------+ + | Angel Talamantes MD | PCP | | + +------+ + Encounter Details +--------+ + + + + | Date | Type | Department | Care Team | Description | +--------+ + + + + | 07/07/ | Orders Only | [facility] | Angel Talamantes, | | | 2017 | | MEDICINE [place] | [address] | | | | | [address] | [place] | | | | | [place] | [address] | | | | | [address] | | | | | | [phone] | | | +--------+ + + + [...]
--- OUTSIDE RECORDS SUMMARY | ~2020-02-26 | XMS | Encounter Summary ---
Demographics + + + | Address | [address] | | | [place] [address] | + + + | Home Phone | | + + + | Preferred Language | Unknown | + + + | Marital Status | Single | + + + | Confucianism Affiliation | Unknown | + + + | Race | Unknown | + + + | Ethnic Group | Unknown | + + + Author + + + | Author | [facility] | | | and [place] | + + + | Organization | [facility] | | | and [...] [id number] | | | | | [address] | | + + + + + Care Team Providers + +------+ + | Care Bar Welder Name | Role | Phone | + +------+ + | Angel Talamantes MD | PCP | | + +------+ + Encounter Details +--------+ + + + + | Date | Type | Department | Care Team | Description | +--------+ + + + + | 07/07/ | Orders Only | [facility] | Angel Talamantes, | | | 2017 | | [facility] [place] | [address] | | | | | [address] | [place] | | | | | [place] | [address] | | | | | [address] | | | | | | [phone] | | | +--------+ + + + [...]
--- OUTSIDE RECORDS SUMMARY | ~2020-02-26 | XMS | Encounter Summary ---
Demographics + + + | Address | [address] | | | [place] [address] | + + + | Home Phone | | + + + | Preferred Language | Unknown | + + + | Marital Status | Single | + + + | Spiritism Affiliation | Unknown | + + + | Race | Unknown | + + + | Ethnic Group | Unknown | + + + Author + + + | Author | [facility] | | | and [...] [id number] | | | | | [address] | | + + + + + Care Team Providers + +------+ + | Care Fish Packer Name | Role | Phone | + +------+ + PCP | Unavailable | + +------+ + Encounter Details +--------+ + + + + | Date | Type | Department | Care Team | Description | +--------+ + + + + | 08/01/ | Hospital | [facility] | | | | 2004 | Encounter | MED CTR EMERGENCY | | | | | | CENTER [address] | | | | | | [place] | | | | | | [address] | | | | | | [phone] | | | +--------+ + + + [...]
--- OUTSIDE RECORDS SUMMARY | ~2020-02-26 | XMS | Encounter Summary ---
Demographics + + + | Address | [address] | | | [place] [address] | + + + | Home Phone | | + + + | Preferred Language | Unknown | + + + | Marital Status | Single | + + + | Nondenominational Affiliation | Unknown | + + + | Race | Unknown | + + + | Ethnic Group | Unknown | + + + Author + + + | Author | [facility] | | | and [place] | + + + | Organization | [facility] | | | and [...] [place] | | | | | [address] | | + + + + + Care Team Providers + +------+ + | Care Phytopathologist Name | Role | Phone | + [...] | 04/06/ | Telephone | [facility] | Rach Quinteros MD | Establish Care | | 2019 | | [facility]IC[facility] [place] | [address] | | | | | [address] | [place] | | | | | [place], [place] | [address] | | | | | [address] | | | | | | [phone] | | | +--------+ + + + [...]
--- OUTSIDE RECORDS SUMMARY | ~2020-02-26 | XMS | Encounter Summary ---
Demographics + + + | Address | [address] | | | [place] [address] | + + + | Home Phone | | + + + | Preferred Language | Unknown | + + + | Marital Status | Single | + + + | Congregational Affiliation | Unknown | + + + | Race | Unknown | + + + | Ethnic Group | Unknown | + + + Author + + + | Author | [facility] | | | and [place] | + + + | Organization | [facility] | [...] [id number] | | | | | [address] | | + + + + + Care Team Providers + +------+ + | Care Computer Education Professor Name | Role | Phone | + [...] + + | 08/23/ | Office | [facility] | Rach Quinteros MD | Adenopathy, cervical | | 2019 | Visit | [facility] | [address] | (Primary Dx); Need | | | | [address] | [place] | for influenza | | | | [place] | [address] | vaccination | | | | [address] | | | | | | [phone] | | | +--------+---------+ + + + [...] baby is Evan - Currently employed at [employer]. reports that she has been smoking. She [...] Portions of this report were transcribed using Liftago voice recognition soft zamorano. Although effort was made in correcting the errors; grammatical and sound alike errors may still be present. Cheyanne Garcia Ca dical Room Service Clerk - 08/23/2019 10:30 AM PST Subjective: Patient [...] baby is Evan - Currently employed at [employer]. reports that she has been smoking. She [...] Portions of this report were transcribed using Liftago voice recognition soft zamorano. Although effort was made in correcting the errors; grammatical and sound alike errors may still be present. [facility] umented in this encounter Plan of Treatment [...]
--- OUTSIDE RECORDS SUMMARY | ~2020-02-26 | XMS | Encounter Summary ---
Demographics + + + | Address | [address] | | | [place] [address] | + + + | Home Phone | | + + + | Preferred Language | Unknown | + + + | Marital Status | Single | + + + | Mormonism Affiliation | Unknown | + + + | Race | Unknown | + + + | Ethnic Group | Unknown | + + + Author + + + | Author | [facility] | | | and [place] | + + + | Organization | [facility] | | | [...] [id number] | | | | | [address] | | + + + + + Care Team Providers + +------+ + | Care Human Relations Teacher Name | Role | Phone | + +------+ + PCP | Unavailable | + +------+ + Encounter Details +--------+ + + + + | Date | Type | Department | Care Team | Description | +--------+ + + + + | 09/21/ | Hospital | [facility] | Gretel Colindres | | | 2010 | Encounter | MED CTR EMERGENCY | DO Ruthy Hay | | | | | CENTER [address] | [place], [place] | | | | | [place], [place] | [address] | | | | | [address] | | | | | | [phone] | | | +--------+ + + + [...] Performed At | + + + | [facility] Diagnostic Imaging Department | [place] | | [address] [facility] [place] | [facility] | | LUMBAR SPINE CLINICAL | [...] Transcribed Date/Time: 09/22/2011 | | | 12:29 Extension Course Coordinator: <Electronically Signed by Renny Villa | | | MD Rowdy> 09/22/11 1436 | | + + + + + | Procedure Note | + + | Zack Amanda Conversion - 11/24/2013 4:20 PM [facility] | | Diagnostic Imaging Department [address] [facility] | | LUMBAR SPINE CLINICAL HISTORY: [...] 10:59 | |Transcribed Date/Time: 09/22/2011 12:29 | |Extension Course Coordinator: | |<Electronically Signed by Renny Reno MD> [...]
--- OUTSIDE RECORDS SUMMARY | ~2020-02-26 | XMS | Clinical Summary ---
Demographics + + + | Address | [address] | | | [place] [address] | + + + | Home Phone | | + + + | Preferred Language | Unknown | + + + | Marital Status | Single | + + + | Cheondoism Affiliation | Unknown | + + + | Race | White | + + + | Ethnic Group | Not or | + + + Author + + + | Author | [facility] | + + + | Organization | [facility] | + + + | Address | Unknown | + + + | Phone | Unavailable | + + + Support + + + + + | Name | Relationship | Address | Phone | + + + + + | Paty & Yury | ECON | [address] | | | [place] | | [place] [address] | | + + + + + Care Team Providers + +------+ + | Care Workforce Development Program Director Name | Role | Phone | + +------+ + PCP | Unavailable | + +------+ + Source Comments JAHAIRA is fully live on both [facility] and [facility] Allergies Not on File Medications Not on file Active Problems Not [...] recent travel history available. | + + Last Filed Vital Signs Not on file Plan of Treatment + + + + + | Health Maintenance | Due Date | Last Done | Comments | + + + + + | Influenza (Flu) | | | | | vaccination (#1) | 9 | | | + + + + + | Pneumococcal | Aged Out | | No longer eligible | | vaccination | | | based on patient's | | | | | age to complete this | | | | | topic | + + + + + Results Not on filefrom Last 3 Months Insurance + +--------+ +--------+-------+ +--------+ | Payer | Benefi | Subscriber | Effect | Phone | Address | Type | | | t Plan | ID | geovanny | | | | | | / | | Dates | | | | | | Group | | | | | | + +--------+ +--------+-------+ +--------+ | [place] | [place] | xxxxxxxxxxx | Effect | | [place], | Medica | | | APPLE | x | geovanny | | [place] | id | | | | | for | | | | | | HEALTH | | all | | | | | | | | dates | | | | + +--------+ +--------+-------+ +--------+ | [place] | [place] | Effect | | [place], | Medica | | | MEDICA | xxx | geovanny | | [place] | id | | | ID | | for | | | | | | FEDERA | | all | | | | | | L | | dates | | | | + +--------+ +--------+-------+ +--------+ + +--------+ +--------+ + + | Guarantor Name | Accoun | Relation to | Date | Phone | Billing Address | | | t Type | Patient | of | | | | | | | | | | + +--------+ +--------+ + + | PATY REDDY | Person | Parent | [birth year] | [address] | | | al/Fam | | 1901 | [phone] | [place] | | | m[place] | | | 8 (Home) | [address] | + +--------+ +--------+ + +"
--- OUTSIDE RECORDS SUMMARY | ~2020-02-26 | XMS | Encounter Summary ---
Demographics + + + | Address | [address] | | | [place] [address] | + + + | Home Phone | | + + + | Preferred Language | Unknown | + + + | Marital Status | Single | + + + | Rastafarian Affiliation | Unknown | + + + | Race | Unknown | + + + | Ethnic Group | Unknown | + + + Author + + + | Author | [facility] | | | and [...] [address] | | | | | [address] | | + + + + + Care Team Providers + +------+ + | Care Outcome Analyst Name | Role | Phone | [...] + | 06/23/ | Telephone | [facility] | No, Physician p | Initial | | 2018 | | [facility] | | Visit | | | | [address] | | | | | | [place], [place] | | | | | | [address] | | | | | | [phone] | | | +--------+ + + + [...] + + + | CEC[facility] | [address] | [place], [place] | [phone] | | [facility] | | [address] | | | [facility] | | [...] 2.7 x 2.6 x 1.9 cm. Adnexa: AkyxyzBbl-fg-zcl: | | NormalIMPRESSION -Single living intrauterine with [...]
--- OUTSIDE RECORDS SUMMARY | ~2020-02-26 | XMS | Encounter Summary ---
Demographics + + + | Address | [address] | | | [place] [address] | + + + | Home Phone | | + + + | Preferred Language | Unknown | + + + | Marital Status | Single | + + + | Mandaen Affiliation | Unknown | + + + | Race | Unknown | + + + | Ethnic Group | Unknown | + + + Author + + + | Author | [facility] | | | and [...] [address] | | | | | [address] | | + + + + + Care Team Providers + +------+ + | Care Program Research Specialist Name | Role | Phone | [...] [id number] | | 2018 | | [facility] | [address] | | | | | [address] | [place] | | | | | [place] | [address] | | | | | [address] | | | | | | [phone] | | | +--------+ + + + [...] is currently staying with her mom in [place]. She st ates that she does not have regular housing or transportation. Patient's boyfriend Eusebio arredondo got a job at [email or web address]. Patient is currently unemployed but looking into [employer]. She states that she is trying to [...] helped her when she moved back from [place], but cannot recall what it was called. [...] in the presence of MD Cassy Souza, [facility]. 07/06/[address], Dr. Angel Talamantes, personally performed [...] [address] | [place] | [phone] | | [facility] | | [address] | | | [facility] | | [...] + + | Performed at: 01 - [facility] [address], | REFERENCE LAB | | [place], [place] [id number] County Historian: Arnol Villarreal MD, Phone: | [place] [place] | | [phone] | | + + + + + + + + | Performing | Address | City/State/[facility] | Phone Number | | Organization | | | | + + + + + | REFERENCE LAB | [address] | [place], [place] | [phone] | | [facility] | [facility] | [address] | | + + + + + [...] [address] | [place] | [phone] | | [facility] | | [address] | | | - LABORATORY | | [...] | | | Positive FloraComment: | | [facility] | | | | Suggests contamination | [...] ST. | [address] | [place], [place] | [phone] | | [facility] | | [address] | | | - LABORATORY | | [...] | | | | | | The [facility] recommends that | | | | | | a positive HCV antibody | | | | | | result be followed up | | | | | | with a HCV Nucleic Acid | | | | | | Amplification test | | | | | | ([id number]). | | | | + + + + + + + + | Specimen | + + | Blood | + + + + + | Narrative | Performed At | + + + | Performed at: 01 - [facility] [address], | REFERENCE LAB | | [place], [place] [id number] County Historian: Arnol Villarreal MD, Phone: | [facility] - [facility] | | [phone] | | + + + + + + + + | Performing | Address | City/State/Zipcode | Phone Number | | Organization | | | | + + + + + | REFERENCE LAB | [address] | [place], [place] | [phone] | | [facility] | [facility] | [address] | | + + + + + Pap Smear (07/06/2018 12:00 AM PDT) + + | Specimen | + + | | + + + + + | Narrative | Performed At | + + + | ORDERING PHYSICIAN: Angel Talamantes MD PATIENT NAME: | [place] [facility] | | January LEDY MICHAEL GENDER: [...] in error, | | | please call [phone]. ADDITIONAL NOTES.: The Aptima Combo 2 | [...] chlamydial and/or gonococcal urogenital disease using the [place] [facility] | | | System. A negative result [...] | been validated at the performing laboratory. [facility] is | | | certified under CLIA [...] | | | have been validated at [facility], [address] | | | [place] [address]. [facility] is certified under CLIA | | | as qualified to perform high-complexity clinical laboratory testing. | | | This test is used for clinical purposes. It should not be regarded | | | as investigational or for research. PERFORMING LABORATORY: | | | Technical preparation was performed by [facility], [address] | | | [place] [address] (Crayon Painter: Avery | | | Laisha Hinton; CLIA#: [id number]). Diagnostician: Mary Luke | | | CT(ASCP) Manuscript Editor Diagnostician: Fabian Mccallum CT(ASCP) | | | Manuscript Editor Electronically Signed 07/11/2018 | | + + [...]
--- OUTSIDE RECORDS SUMMARY | ~2020-02-26 | XMS | Encounter Summary ---
Demographics + + + | Address | [address] | | | [place] [address] | + + + | Home Phone [...] + + + | Author | [facility] | | | and [place] | + + + | Organization | [facility] | | | [...] [place] | | | | | [address] | | + + + + + Care Team Providers + +------+ + | Care Private Duty Lpn Name | Role | Phone | + [...] W | | | | | | [place], | | | | | | [place] [address] | | | | | | [phone] | | | +--------+ + + + [...]
--- OUTSIDE RECORDS SUMMARY | ~2020-02-26 | XMS | Encounter Summary ---
Demographics + + + | Address | [address] | | | [place] [address] | + + + | Home Phone | | + + + | Preferred Language | Unknown | + + + | Marital Status | Single | + + + | Temple Affiliation | Unknown | + + + | Race | Unknown | + + + | Ethnic Group | Unknown | + + + Author + + + | Author | [facility] | | | and [place] | + + + | Organization | [facility] | | | [...] [place] | | | | | [address] | | + + + + + Care Team Providers + +------+ + | Care Chip Mixer Name | Role | Phone | + [...] | | | | CENTER [address] | [place], [place] | | | | | [place], [place] | [address] | | | | | [address] | | | | | | [phone] | | | +--------+ + + + [...] through Care Everywhere.BRONCHITIS, ANT IOBIOTIC TREATMENT (ADULT) (SAO TOMEAN)documented in this encounter Medications at Time of [...] | ---- | | | 10/13/2015 12:12 [facility] | | | [facility] Emergency -wheezing, coughing | | | 10/08/2015 19:[address] [facility] | | | Emergency CONFIDENTIAL INPATIENT VISIT TRACKING (1 MO.) | | | Visit Date LocationTypeDx / Complaint | | | ED VISIT | | | COUNT (1 YR.) Visits Medicaid NE Dx Location ------ | | | --------- 1 0 | | | [facility] 4 0 | | | [facility] 6 0 | | | [facility] 11 0 | | | Total Note: Visits indicate total known visits. | | | Medicaid NE Dx are the number of primary diagnoses on the [facility] | | | non-emergent dx list. | | | | | | --- CARL has no Care Guidelines for this patient. [place] | | | Prescription Review PDMP Report [...] + + | Performing | Address | City/State/[facility] | Phone Number | | Organization [...]
--- OUTSIDE RECORDS SUMMARY | ~2020-02-26 | XMS | Encounter Summary ---
Demographics + + + | Address | [address] | | | [place] [address] | + + + | Home Phone | | + + + | Preferred Language | Unknown | + + + | Marital Status | Single | + + + | Jehovah'S Witness Affiliation | Unknown | + + + | Race | Unknown | + + + | Ethnic Group | Unknown | + + + Author + + + | Author | [facility] | | | and [place] | [...] [place] | | | | | [address] | | + + + + + Care Team Providers + +------+ + | Care Aoc Operations Intelligence Chief Name | Role | Phone | + [...] | | | tonsillitis | | [address] | | | | | Chronic | | [place], | | | | | tonsillitis | | [place] [address] | | | | | Procedures | | Phone: | | | | | [place] REMOVAL | | | | | | | OF | | Fax: | | | | | TONSILS,12+ | | [phone] | | | | | Y/O | [...] + + + + | 05/15/ | Hospital | [facility] | Alberto Munoz, | | | 2014 | Encounter | MED CTR OR INTRA OP | [address], | | | | | [address] | [address] [place], | | | | | [place], [place] | [place] [address] | | | | | [address] | [phone] | | | | | | | [...] all medications you take. This includ es hajp-drn-rjwrluo drugs. It also includes herbs and other [...] (the anesthesiologist will discuss these with you) [id number] [employer]. [address] [place] [address], [place] [address]. All righ ts reserved. This information is [...] Diagnoses Not on filedocumented in this encounter Admitting Diagnoses + + [...] | mL/hr | | | CONTINUOUS, Starting 05/15/15 | [...]
--- OUTSIDE RECORDS SUMMARY | ~2020-02-26 | XMS | Encounter Summary ---
Demographics + + + | Address | [address] | | | [place] [address] | + + + | Home Phone | | + + + | Preferred Language | Unknown | + + + | Marital Status | Single | + + + | Sabianist Affiliation | Unknown | + + + | Race | Unknown | + + + | Ethnic Group | Unknown | + + + Author + + + | Author | [facility] | | | and [place] | + + + | Organization | [facility] | | | [...] [place] | | | | | [address] | | + + + + + Care Team Providers + +------+ + | Care Confectionery Cooker Name | Role | Phone | + [...] + + | 07/06/ | Emergency | [facility] | [place] | Threatened | | 2018 | | MED CTR EMERGENCY | Hilton Kearney MD | in first trimester | | | | CENTER [address] | [address] | (Primary Dx) | | | | [place] | [place] | | | | | [address] | [address] | | | | | [phone] | | | +--------+ + + + [...]
--- OUTSIDE RECORDS SUMMARY | ~2020-02-26 | XMS | Encounter Summary ---
Demographics + + + | Address | [address] | | | [place] [address] | + + + | Home Phone | | + + + | Preferred Language | Unknown | + + + | Marital Status | Single | + + + | Latter Day Affiliation | Unknown | + + + | Race | Unknown | + + + | Ethnic Group | Unknown | + + + Author + + + | Author | [facility] | | | and [place] | + + + | Organization | [facility] | | | [...] [address] | | | | | [address] | | + + + + + Care Team Providers + +------+ + | Care Marine [employer] Task Force Planners Name | Role | Phone | + [...] + + | 04/11/ | Telephone | [facility] | Rach Quinteros MD | Medication Prior | | 2019 | | [facility] | [address] | Authorization | | | | [address] | [place] | | | | | [place] | [address] | | | | | [address] | | | | | | [phone] | | | +--------+ + + + [...]
--- OUTSIDE RECORDS SUMMARY | ~2020-02-26 | XMS | Encounter Summary ---
Demographics + + + | Address | [address] | | | [place] [address] | + + + | Home Phone | | + + + | Preferred Language | Unknown | + + + | Marital Status | Single | + + + | Religion Affiliation | Unknown | + + + | Race | Unknown | + + + | Ethnic Group | Unknown | + + + Author + + + | Author | [facility] | | | and [place] | + + + | Organization | [facility] | [...] [place] | | | | | [address] | | + + + + + Care Team Providers + +------+ + | Care Calculus Teacher Name | Role | Phone | + +------+ + PCP | Unavailable | + +------+ + Encounter Details +--------+ + + + + | Date | Type | Department | Care Team | Description | +--------+ + + + + | 03/03/ | Hospital | [facility] | Sanjeev Viera, | | | 2004 | Encounter | MED CTR XRAY [address] | | | | | [employer] | [place], [place] | | | | | [place], [place] [address] | [address] | | | | | [phone] | | | +--------+ + + + [...]
--- OUTSIDE RECORDS SUMMARY | ~2020-02-26 | XMS | Encounter Summary ---
Demographics + + + | Address | [address] | | | [place] [address] | + + + | Home Phone | | + + + | Preferred Language | Unknown | + + + | Marital Status | Single | + + + | Lutheran Affiliation | Unknown | + + + | Race | Unknown | + + + | Ethnic Group | Unknown | + + + Author + + + | Author | [facility] | | | and [place] | + + + | Organization | [facility] | | | and [...] [place] | | | | | [address] | | + + + + + Care Team Providers + +------+ + | Care Copy Technician Name | Role | Phone | + [...] + + | 02/06/ | Emergency | [facility] | [place] | Strep pharyngitis | | 2015 | | MED CTR EMERGENCY | Hilton Kearney MD | (Primary Dx) | | | | CENTER [address] | [address] | | | | | [place] | [place], [place] | | | | | [address] | [address] | | | | | [phone] | | | +--------+ + + + [...] | ---- 02/06/2015 | | | 22:14 [facility] | | | -Poss Throat Inf 01/21/2015 22:45 [facility] | | | Center Emergency -Urinary Pain | | | | | | -Backache, unspecified | | | | | | -Poss Bladder Infection | | | -Back | | | Pain | | | -Other chronic pain | | | | | | -Dysuria 01/02/2015 05:10 [facility] | | | [facility] Emergency -Pain in thoracic | | | [...] ------ --------- 2 0 | | | [facility] 6 | | | 0 [facility] 8 | | | 0 Total Note: Visits indicate total | | | known visits. Medicaid NE Dx are the number of primary diagnoses on | | | the [facility]'s non-emergent dx list. | | [...] | | | | First dose on [facility] 02/07/15 at 0900 | | PM PDT [...]
--- OUTSIDE RECORDS SUMMARY | ~2020-02-26 | XMS | Encounter Summary ---
Demographics + + + | Address | [address] | | | [place] [address] | + + + | Home Phone | | + + + | Preferred Language | Unknown | + + + | Marital Status | Single | + + + | Presybeterian Affiliation | Unknown | + + + | Race | Unknown | + + + | Ethnic Group | Unknown | + + + Author + + + | Author | [facility] | | | and [place] | + + + | Organization | [facility] | | [...] [id number] | | | | | [address] | | + + + + + Care Team Providers + +------+ + | Care Forensic Pathologist Name | Role | Phone | + [...] smear) | | 2018 | | MEDIC[facility] [place] | [address] | | | | | [address] | [place], [place] | | | | | [place], [place] | [address] | | | | | [address] | | | | | | [phone] | | | +--------+ + + + [...]
--- OUTSIDE RECORDS SUMMARY | ~2020-02-26 | XMS | Encounter Summary ---
Demographics + + + | Address | [address] | | | [place] [address] | + + + | Home Phone | | + + + | Preferred Language | Unknown | + + + | Marital Status | Single | + + + | Roman Catholic Affiliation | Unknown | + + + | Race | Unknown | + + + | Ethnic Group | Unknown | + + + Author + + + | Author | [facility] | | | and [place] | + + + | Organization | [facility] | | | [...] [id number] | | | | | [address] | | + + + + + Care Team Providers + +------+ + | Care Leasing Manager Name | Role | Phone | [...] + | 06/04/ | Refill | [facility] | Rach Quinteros MD | Medication Refill | | 2019 | | MEDICINE [place] | [address] | | | | | [address] | [place] | | | | | [place] | [address] | | | | | [address] | | | | | | [phone] | | | +--------+--------+ + + + [...]
--- OUTSIDE RECORDS SUMMARY | ~2020-02-26 | XMS | Encounter Summary ---
Demographics + + + | Address | [address] | | | [place] [address] | + + + | Home Phone | | + + + | Preferred Language | Unknown | + + + | Marital Status | Single | + + + | Worship Affiliation | Unknown | + + + | Race | Unknown | + + + | Ethnic Group | Unknown | + + + Author + + + | Author | [facility] | | | and [place] | + + + | Organization | [facility] | | | [...] [id number] | | | | | [address] | | + + + + + Care Team Providers + +------+ + | Care Mortar Carrier Name | Role | Phone | + [...] | | | tonsillitis | | [address] | | | | | Chronic | | [place], | | | | | tonsillitis | | [place] [address] | | | | | Procedures | | Phone: | | | | | [place] REMOVAL | | | | | | | OF | | Fax: | | | | | TONSILS,12+ | | [phone] | | | | | Y/O | [...] + + | 05/15/ | Surgery | [facility] | Alberto Munoz, | Tonsillectomy | | 2014 | | MED CTR OR INTRA OP | [address], | | | | | [address] | [address] [place], | | | | | [place], [place] | [place] [address] | | | | | [address] | [phone] | | | | | | | [...] all medications you take. This includ es bmff-nnn-wsfllfy drugs. It also includes herbs and other [...] (the anesthesiologist will discuss these with you) [id number] [employer]. [address] [place] [address]. All righ ts reserved. This information is [...]
--- OUTSIDE RECORDS SUMMARY | ~2020-02-26 | XMS | Encounter Summary ---
Demographics + + + | Address | [address] | | | [place] [address] | + + + | Home Phone [...] + | Author | [facility] | | | and [place] [...] [id number] | | | | | [address] | | + + + + + Care Team Providers + +------+ + | Care Ladies' Hat Trimmer Name | Role | Phone | + +------+ + PCP | Unavailable | + +------+ + Encounter Details +--------+ + + + + | Date | Type | Department | Care Team | Description | +--------+ + + + + | 05/11/ | Emergency | [facility] | Sonia Carl, | Injury, Other and | | 2006 | | [facility] | DO [address] | Unspecified, Hand, | | | | EMERGENCY CENTER | [place] [address] | except Finger | | | | [address] | [phone] | | | | | [place], [place] | | | | | | [address] | | | | | | [phone] | | | +--------+ + + + [...]
--- OUTSIDE RECORDS SUMMARY | ~2020-02-26 | XMS | Encounter Summary ---
Demographics + + + | Address | [address] | | | [place] [address] | + + + | Home Phone | | + + + | Preferred Language | Unknown | + + + | Marital Status | Single | + + + | Sikhism Affiliation | Unknown | + + + | Race | Unknown | + + + | Ethnic Group | Unknown | + + + Author + + + | Author | [facility] | | | and [place] | + + + | Organization | [facility] | | [...] [id number] | | | | | [address] | | + + + + + Care Team Providers + +------+ + | Care Corporate Staff Accountant Name | Role | Phone | + [...] Description | +--------+--------+ + + + | 11/09/ | Refill | [facility] | Rach Quinteros MD | Medication Refill | | 2020 | | MEDICINE [place] | [address] | | | | | [address] | [place] | | | | | [place] | [address] | | | | | [address] | | | | | | [phone] | | | +--------+--------+ + + + [...]
--- OUTSIDE RECORDS SUMMARY | ~2020-02-26 | XMS | Encounter Summary ---
Demographics + + + | Address | [address] | | | [place] [address] | + + + | Home Phone | | + + + | Preferred Language | Unknown | + + + | Marital Status | Single | + + + | Episcopalian Affiliation | Unknown | + + + | Race | Unknown | + + + | Ethnic Group | Unknown | + + + Author + + + | Author | [facility] | | | and [place] | [...] [id number] [place] | | | | | [address] | | + + + + + Care Team Providers + +------+ + | Care Marine Operations Coordinator Name | Role | Phone | + +------+ + | Angel Talamantes MD | PCP | | + +------+ + Reason for Visit +---------+ + | Reason | Comments | +---------+ + | Results | lab results | +---------+ + Encounter Details +--------+ + + + + | Date | Type | Department | Care Team | Description | +--------+ + + + + | 07/07/ | Telephone | [facility] [place] [facility] | Angel Talamantes, | Results (lab | | 2018 | | MEDICINE [place] | [address] | results) | | | | [address] | [place] | | | | | [place], [place] | [address] | | | | | [address] | | | | | | [phone] | | | +--------+ + + + [...]
--- OUTSIDE RECORDS SUMMARY | ~2020-02-26 | XMS | Encounter Summary ---
Demographics + + + | Address | [address] | | | [place] [address] | + + + | Home Phone | | + + + | Preferred Language | Unknown | + + + | Marital Status | Single | + + + | Restorationist Affiliation | Unknown | + + + | Race | Unknown | + + + | Ethnic Group | Unknown | + + + Author + + + | Author | [facility] | | | and [place] | + + + | Organization | [facility] | | | and [...] [address] | | | | | [address] | | + + + + + Care Team Providers + +------+ + | Care Project Administrative Assistant Name | Role | Phone | + +------+ + PCP | Unavailable | + +------+ + Encounter Details +--------+ + + + + | Date | Type | Department | Care Team | Description | +--------+ + + + + | 02/23/ | Hospital | [facility] | Sanjeev Viera, | | | 2004 | Encounter | MED CTR XRAY [address] | | | | | [place] | [place] | | | | | [place], [place] [address] | [address] | | | | | [phone] | | | +--------+ + + + [...]
--- OUTSIDE RECORDS SUMMARY | ~2020-02-26 | XMS | Clinical Summary ---
Demographics + + + | Address | [address] | | | [place] [address] | + + + | Home Phone | | + + + | Preferred Language | Unknown | + + + | Marital Status | Single | + + + | Bahai Affiliation | Unknown | + + + | Race | Unknown | + + + | Ethnic Group | Unknown | + + + Author + + + | Author | [facility] | | | and [place] | + + + | Organization | [facility] | | | [...] St Apt | | | | | [place] | | | | | [address] | | + + + + + Care Team Providers + +------+ + | Care Spool Salvager Name | Role | Phone | + +------+ + | Rach Quinteros MD | PCP | | + +------+ + Allergies + + + + + + | Active Allergy | Reactions | Severity | Noted | Comments | | | | | Date | | + + + + + + | Latex | Rash | Low | 01/11/20 | Rash on face | | | | | 19 | | + + + + + + | Soap & Cleansers | Rash | Low | 05/10/20 | | | | | | 15 | | + + + + + + | Adhesive & Tape | Rash | Low | 01/11/20 | | | | | | 19 | | + + + + + + Medications + + + +---------+------+------+-------+ | Medication | Sig | Dispensed | Refills | Star | End | Statu | | | | | | t | Date | s | | | | | | Date | | | + + + +---------+------+------+-------+ | cloNIDine | Take 2 tablets by | 60 | 1 | 11/0 | | Activ | | (CATAPRES) 0.1 mg | mouth nightly. | tablet | | 6/20 | | e | | tablet | | | | 19 | | | + + + +---------+------+------+-------+ | albuterol (PROAIR | Inhale 2 puffs into | 18 g | 3 | 11/0 | | Activ | | HFA) 90 mcg/puff | the lungs every 6 | | | 6/20 | | e | | inhaler | hours as needed for | | | 19 | | | | | Wheezing. | | | | | | + + + +---------+------+------+-------+ | cephalexin | Take 1 capsule by | 40 | 0 | 11/0 | | Activ | | (KEFLEX) 500 mg | mouth every 6 hours. | capsule | | 6/20 | | e | | capsuleIndications: | | | | 19 | | | | Adenopathy, cervical | | | | | | | + + + +---------+------+------+-------+ | sertraline | TAKE ONE TABLET BY | 30 | 0 | 01/2 | | Activ | | (ZOLOFT) 100 mg | MOUTH ONE TIME DAILY | tablet | | 4/20 | | e | | tablet | | | | 20 | | | + + + +---------+------+------+-------+ | ARIPiprazole | TAKE ONE TABLET BY | 30 | 0 | 10/19 | | Activ | | (ABILIFY) 5 mg | MOUTH ONE TIME DAILY | tablet | | 02/04 | | e | | tablet | | | | 20 | | | + + + +---------+------+------+-------+ Active Problems + + + | Problem | Noted Date | + + + | Adenopathy, cervical | 08/23/2019 | + + + | Vitamin D deficiency | 07/07/2018 | + + + | Rh negative state in antepartum period | 07/07/2018 | + + + | Encounter for supervision of normal first in first | 07/06/2018 | | trimester | | + + + | Bipolar disorder, current episode mixed, moderate | 07/06/2018 | + + + | Agoraphobia | 07/06/2018 | + + + | Hx of suicide attempt | 07/06/2018 | + + + | Suicidal ideation | 07/06/2018 | + + + | Homelessness | 07/06/2018 | + + + | GORDON (generalized anxiety disorder) | 07/06/2018 | + + + + + | Last Assessment & Plan: Rx given to patient. Advised patient | | make her appointment with [facility] to start | | counseling. Advised patient to decrease her marijuana use until | | she is no longer smoking. | + + + + + | History of methamphetamine use | 07/06/2018 | + + + | Class III, BMI 40-49.9 | 05/15/2015 | + + + | Smoker | 05/15/2015 | + + + | Medical marijuana use | 05/15/2015 | + + + Resolved Problems + + + + | Problem | Noted | Resolved | | | Date | Date | + + + + | Chronic tonsillitis | 05/15/20 | | | | 15 | 8 | + + + + | Depression | | | | | | 8 | + + + + | Tachycardia | | | | | | 8 | + + + + Immunizations + + + + | Name | Administration Dates | Next Due | + + + + | DTAP, 5 DOSE (PED) | 03/22/2000 | | + + + + | DTP-HIB, (PED) | 09/19/1996, 1995, 1995, | | | | 1995 | | + + + + | HEP B, 3 DOSE | 1995, 1995, 1995 | | | (ADULT) | | | + + + + | INFLUENZA PF | 08/23/2019 | | | QUAD(PED/ADOL/ADULT) | | | | ,PSKT or VIAL | | | + + + + | IPV, 4 DOSE | 03/22/2000 | | | (PED/ADULT) | | | + + + + | MMR, 2 DOSE | 01/11/2019, 03/22/2000, 09/19/1996 | | | (PED/ADULT) | | | + + + + | PNEUMOCOCCAL | 04/07/2019 | | | POLYSACCHARIDE | | | | 23-VALENT (PPSV23) | | | + + + + | POLIOVIRUS,OPV | 1995, 1995, 1995 | | | (LIVE) | | | + + + + | RHO (D) IMMUNE | 01/12/2019, 08/02/2018, 07/08/2018 | | | GLOBULIN | | | + + + + | TDAP, (ADOL/ADULT) | 01/10/2019 (), 11/16/2018 | | + + + + | VARICELLA, 2 DOSE | 09/19/1996 | | | (VARIVAX) | | | + + + + Family History + + + + + | Medical History | Relation | Name | Comments | + + + + + | Arthritis | Maternal | | | | | Grandfath | | | | | er | | | + + + + + | Asthma | Maternal | | | | | Grandfath | | | | | er | | | + + + + + | Prostate cancer | Maternal | | | | | Grandfath | | | | | er | | | + + + + + | Arthritis | Maternal | | | | | Grandmoth | | | | | er | | | + + + + + | Asthma | Maternal | | | | | Grandmoth | | | | | er | | | + + + + + | Breast cancer | Maternal | | | | | Grandmoth | | | | | er | | | + + + + + | Thyroid disease | Maternal | | Graves disease | | | Grandmoth | | | | | er | | | + + + + + | Depression | Mother | Healther | | | | | Grass | | + + + + + | Diabetes | Mother | Healther | hx Necrotizing fasciitis due to DM | | | | Grass | | + + + + + | Depression | Other | | Family history | + + + + + | Diabetes | Other | | Family history | + + + + + | Thyroid disease | Other | | Graves disease - family history | + + + + + + + + + + | Relation | Name | Status | Comments | + + + + + | Father | | Alive | | + + + + + | Maternal Grandfather | | Alive | | + + + + + | Maternal Grandmother | | Alive | | + + + + + | Mother | Healther | Alive | | | | [place] | | | + + + + + | Other | | | | + + + + + | Paternal Grandfather | | | | + + + + + | Paternal Grandmother | | | | + + + + + Social History + [...] | + + Last Filed Vital Signs + + + [...] | | + + + + + Plan of Treatment + + + + + | Health Maintenance | Due Date | Last Done | Comments | + + + + + | Vaccine: HPV (1 - | | | | | Female 2-dose | 6 | | | | series) | | | | + + + + + | Cervical Cancer | | 07/06/2018 | | | Screening (Pap) | 1 | | | + + + + + | Vaccine: | | 11/16/2018, 03/22/2000, | | | Dtap/Tdap/Td (7 - | 9 | 09/19/1996, Additional history | | | Td) | | exists | | + + + + + | Vaccine: | Completed | 04/07/2019 | | | Pneumococcal - | | | | + + + + + | Vaccine: Influenza | Completed | 08/23/2019 | | + + + + + Results Not on filefrom Last 3 Months Insurance + +--------+ +--------+-------+---------+--------+ | Payer | Benefi | Subscriber | Effect | Phone | Address | Type | | | t Plan | ID | geovanny | | | | | | / | | Dates | | | | | | Group | | | | | | + +--------+ +--------+-------+---------+--------+ | COORDINATED CARE | COORDI | [id number] | 03/18/20 | | | Medica | | MEDICAID HMO | NATED | | 18-Pre | | | id | | | CARE | | sent | | | | | | APPLE | | | | | | | | HEALTH | | | | | | | | [place] | | | | | | + +--------+ +--------+-------+---------+--------+ | COORDINATED CARE | COORDI | [id number] | 10/18/19 | | | Medica | | MEDICAID HMO | NATED | | 19-Pre | | | id | | | CARE | | sent | | | | | | APPLE | | | | | | | | HEALTH | | | | | | | | [place] | | | | | | + +--------+ +--------+-------+---------+--------+ + +--------+ +--------+ + + | Guarantor Name | Accoun | Relation to | Date | Phone | Billing Address | | | t Type | Patient | of | | | | | | | | | | + +--------+ +--------+ + + | | Person | Self | [birth year] | [address] | | Shayna | al/Fam | | 1994 | [phone] | [place] | | | maira | | | 2 (Home) | [address] | + +--------+ +--------+ + + Advance Directives + + + + + | Type | Date Recorded | Patient | Explanation | | | | Turbinated Bone Grinder | | + + + + + | Power of | | | | | Chief Innovation Officer | | | | + + + + + | Power of | | | | | Chief Innovation Officer | | | | + + + + + | Advance | 05/15/2015 12:25 | | | | Directive | AM | | | + + + + + | Advance | 01/11/2019 9:12 | | | | Directive | AM | | | + + + + + + + + + + | Code Status | Date | Date | Comments | | | Activated | Inactivated | | + + + + + | Full Code | 01/10/2019 | 01/12/2019 | | | | 6:02 AM | 9:40 PM | | + + + + +
--- OUTSIDE RECORDS SUMMARY | ~2020-02-26 | XMS | Encounter Summary ---
Demographics + + + | Address | [address] | | | [place] [address] | + + + | Home Phone | | + + + | Preferred Language | Unknown | + + + | Marital Status | Single | + + + | Jewish Affiliation | Unknown | + + + | Race | Unknown | + + + | Ethnic Group | Unknown | + + + Author + + + | Author | [facility] | | | and [place] | + + + | Organization | [facility] | | [...] [address] | | | | | [address] | | + + + + + Care Team Providers + +------+ + | Care Labor Commissioner Name | Role | Phone | + [...] 2018 | Support | MEDIC[facility] [place] | OPEN HEARTH WORKER | antepartum period | | | | [address] | | (Primary Dx) | | | | [place] | | | | | | [address] | | | | | | [phone] | | | +--------+ + + + [...]
--- OUTSIDE RECORDS SUMMARY | ~2020-02-26 | XMS | Encounter Summary ---
Demographics + + + | Address | [address] | | | [place] [address] | + + + | Home Phone | | + + + | Preferred Language | Unknown | + + + | Marital Status | Single | + + + | Buddhist Affiliation | Unknown | + + + | Race | Unknown | + + + | Ethnic Group | Unknown | + + + Author + + + | Author | [facility] | | | and [place] | + + + | Organization | [facility] | | | and [...] [address] | | | | | [address] | | + + + + + Care Team Providers + +------+ + | Care Plater Apprentice Name | Role | Phone | + [...] + | 11/09/ | Refill | [facility] | Rach Quinteros MD | Medication Refill | | 2020 | | MEDICINE [place] | [address] | | | | | [address] | [place] | | | | | [place] | [address] | | | | | [address] | | | | | | [phone] | | | +--------+--------+ + + + [...]
--- OUTSIDE RECORDS SUMMARY | ~2020-02-26 | XMS | Encounter Summary ---
Demographics + + + | Address | [address] | | | [place] [address] | + + + | Home Phone | | + + + | Preferred Language | Unknown | + + + | Marital Status | Single | + + + | Alevism Affiliation | Unknown | + + + | Race | Unknown | + + + | Ethnic Group | Unknown | + + + Author + + + | Author | [facility] | | | and [place] | + + + | Organization | [facility] | | [...] [id number] | | | | | [address] | | + + + + + Care Team Providers + +------+ + | Care Cloak Room Attendant Name | Role | Phone | + [...] | | | tonsillitis | | [address] | | | | | Chronic | | [place], | | | | | tonsillitis | | [place] [address] | | | | | Procedures | | Phone: | | | | | [place] REMOVAL | | | | | | | OF | | Fax: | | | | | TONSILS,12+ | | [phone] | | | | | Y/O | [...] + + | 05/15/ | Hospital | [facility] | Alberto Munoz, | | | 2014 | Encounter | MED CTR OR INTRA OP | [address], | | | | | [address] | [address] [place], | | | | | [place], [place] | [place] [address] | | | | | [address] | [phone] | | | | | | | [...] all medications you take. This includ es qhnh-jzy-mobojix drugs. It also includes herbs and other [...] (the anesthesiologist will discuss these with you) 7252-9973 [employer]. [address] [place] [address], [place] [address]. All righ ts reserved. This information is [...]
--- OUTSIDE RECORDS SUMMARY | ~2020-02-26 | XMS | Encounter Summary ---
Demographics + + + | Address | [address] | | | [place] [address] | + + + | Home Phone | | + + + | Preferred Language | Unknown | + + + | Marital Status | Single | + + + | Baptism Affiliation | Unknown | + + + | Race | Unknown | + + + | Ethnic Group | Unknown | + + + Author + + + | Author | [facility] | | | and [place] | + + + | Organization | [facility] | | | [...] [address] | | | | | [address] | | + + + + + Care Team Providers + +------+ + | Care Tripper Name | Role | Phone | + +------+ + | Angel Talamantse MD | PCP | | + +------+ + Reason for Visit + + + | Reason | Comments | + + + | Vaginal Bleeding | | + + + Encounter Details +--------+ + + + + | Date | Type | Department | Care Team | Description | +--------+ + + + + | 08/02/ | Emergency | [facility] | Yeyo Page MD | Threatened | | 2018 | | MED CTR EMERGENCY | [address] | miscarriage (Primary | | | | CENTER [address] | [place] | Dx) | | | | [place] | [address] | | | | | [address] | | | | | | [phone] | | | +--------+ + + + [...]
--- OUTSIDE RECORDS SUMMARY | ~2020-02-26 | XMS | Encounter Summary ---
Demographics + + + | Address | [address] | | | [place] [address] | + + + | Home Phone | | + + + | Preferred Language | Unknown | + + + | Marital Status | Single | + + + | Zoroastrian Affiliation | Unknown | + + + | Race | Unknown | + + + | Ethnic Group | Unknown | + + + Author + + + | Author | [facility] | | | and [place] | + + + | Organization | [facility] | | | [...] [place] | | | | | [address] | | + + + + + Care Team Providers + +------+ + | Care Aviation Survival Technician Name | Role | Phone | [...] + + | 01/21/ | Emergency | [facility] | Hilton Donaldson | Dysuria (Primary | | 2014 - | | MED CTR EMERGENCY | MD [address] | Dx); Chronic back | | | | CENTER [address] | [address] [place] | pain | | 01/22/ | | [place], [place] | [place] [address] | | | 2014 | | [address] | [phone] | | | | | [phone] | | | +--------+ + + + [...] through Care Everywhere.BACK AND NECK GENERAL BHAVYA (FAROESE)DYSURIA (FAROESE)documented in this encounter Medications at Time of [...] [place] | | | | | | [address] | | | | + + + [...] [address] | [place] [address] | [phone] | + + + + + XR [...] 1.001 - 1.030 | | | | [place], | | | | | | UA, [...] | 1.025 | | | | | [place], | | | | | | POC [...] | ---- 01/21/2015 | | | 22:10 [facility] | | | -Poss Bladder Infection 01/02/2015 05:10 [facility] | | | Hospital Emergency -Pain in [...] ------ --------- 1 0 | | | [facility] 6 0 | | | [facility] 7 0 | | | Total Note: Visits indicate total known visits. | | | Medicaid [place] Dx are the number of primary diagnoses on the [facility]'s | | | non-emergent dx list. [...]
--- OUTSIDE RECORDS SUMMARY | ~2020-02-26 | XMS | Encounter Summary ---
Demographics + + + | Address | [address] | | | [place] [address] | + + + | Home Phone [...] Author | [facility] | | | [...] [address] | | | | | [address] | | + + + + + Care Team Providers + +------+ + | Care Project Engineering Director Name | Role | Phone | [...] [address] [place] | | | | | [place], | [place] [address] | | | | | [place] [address] | [phone] | | | | | [phone] | | | +--------+ + + + [...] 01/11/19 1003 by | | eral | vqct-wdx-[id number] catheter system; | Lesa Cuevas RN | [...]
--- OUTSIDE RECORDS SUMMARY | ~2020-02-26 | XMS | Encounter Summary ---
Demographics + + + | Address | [address] | | | [place] [address] | + + + | Home Phone | | + + + | Preferred Language | Unknown | + + + | Marital Status | Single | + + + | Anabaptist Affiliation | Unknown | + + + | Race | Unknown | + + + | Ethnic Group | Unknown | + + + Author + + + | Author | [facility] | | | and [place] | + + + | Organization | [facility] | | [...] [id number] | | | | | [address] | | + + + + + Care Team Providers + +------+ + | Care Certified Industrial Hygienist Name | Role | Phone | + [...] | | | | CENTER [address] | [address] [place] | Depression, | | | | [place], [place] | [place] [address] | unspecified | | | | [address] | [phone] | depression type | | | | [phone] | | | +--------+ + + + [...] through Care Everywhere.Depression, Wha t Can Cause (Burundian)Suicide, Recognizing Warning Signs in Yourself ([place]ian)Suicide, Recogn izing Warning Signs in Others ([place]ian)documented in this encounter Medications at Time of [...] + | [facility] | [address] | [place] | [phone] | | [facility] | | [address] | | | - LABORATORY | | [...] [address] | [place] | [phone] | | [facility] | | [address] | | | - LABORATORY | | [...] + | [facility] [facility] | [address] | [place] | [phone] | | [facility] | | [address] | | | - LABORATORY | | [...] + | [facility] | [address] | [place] | [phone] | | [facility] | | [address] | | | - LABORATORY | | [...] | + + + + + | [facility] | [address] | [place] | [phone] | | [facility] | | [address] | | | - LABORATORY | | [...] [address] | [place] | [phone] | | [facility] | | [address] | | | - LABORATORY | | [...] mL/min/1.73m2 | [facility] | | | [place] | RATE,ESTIMATED | | MEDICAL | | | | mL/min/1.19j7Kypz than | | CENTER - | | [...] | appended report. These | | [facility] | | | | results have been [...] [address] | [place] | [phone] | | [facility] | | [address] | | | - LABORATORY | | [...] [address] | [place] | [phone] | | [facility] | | [address] | | | - LABORATORY | | [...] [address] | [place] | [phone] | | [facility] | | [address] | | | - LABORATORY | | [...] - 1.030 | [facility] | | | [place], | | | [facility] | | [...] [address] | [place] | [phone] | | [facility] | | [address] | | | - LABORATORY | | | | + + + + + documented in this encounter Visit Diagnoses + + | Diagnosis | + + | Suicidal ideation - Primary | + + | Depression, unspecified depression type | + + documented in this encounter"
--- OUTSIDE RECORDS SUMMARY | ~2020-02-26 | XMS | Encounter Summary ---
Demographics + + + | Address | [address] | | | [place] [address] | + + + | Home Phone | | + + + | Preferred Language | Unknown | + + + | Marital Status | Single | + + + | Confucianist Affiliation | Unknown | + + + | Race | Unknown | + + + | Ethnic Group | Unknown | + + + Author + + + | Author | [facility] | | | and [place] | + + + | Organization | [facility] | | | [...] [id number] | | | | | [address] | | + + + + + Care Team Providers + +------+ + | Care Roguer Name | Role | Phone | + [...] + + | 04/07/ | Office | [facility] | Rach Quinteros MD | Encounter to | | 2019 | Visit | [facility] [place] | [address] | establish care | | | | [address] | [place] | (Primary Dx); [place] | | | | [place] | [address] | (generalized anxiety | | | | [address] | | disorder); Bipolar | | | | [phone] | | disorder, current | | | [...] encounter Patient Instructions Patient Instructions Aquino, Cheyanne, E Commerce Project Manager - 04/07/2019 10:00 AM PDTFormatt ing of this note might be different from the original. Please make your appointment with [facility]. Return in about 1 month (around 05/07/2019) for PHQ9 Depression/Anxiety. If you have any qu estions, please call us [phone]. Appointment reminders by text: Do you have an upcoming appointment? Receive a test reminder! Text the word HEALTH to [phone] to opt. in and ask our front desk person for more information galkia marion your visit [...] hope for a better future. Resources National Morse of Mental Health 765-994-1714 www.nimh.nih.gov National Allianceon Mental Illness 054-279-2302 www.claudette.org Mental Health Perla 090-784-3239 www.miha.org National Suicide Prevention Lifeline 375-108-ADQQ (258-295-6628) www.suicidepreventionli feline.org Date Last Reviewed: 02/15/201719999617-[address] [employer] [place] [address]. All righ ts reserved. This information is [...] check with your pharmacist before using any grer-jib-nkssf er medicines, including herbal supplements. Date Last Reviewed: 02/15/201719990251-5303 [employer]. [address] [place] [address]. All righ ts reserved. This information is [...] to take a walk. Walk to the [employer] to get your paper instead of having [...] amount of muscle in your body. Muscle mcbride calories f yara than fat. The more [...] start an ex ercise program. Have a automotive sales professional help you develop a plan that s safe for you. Date Last Reviewed: 01/16/201819990342-[address] [employer] [place] [address], [place] [address]. All righ ts reserved. This information is [...] a poo l. Get advice from a automotive sales professional. Date Last Reviewed: 01/16/201819991332-4201 [employer]. [address] [place] [address]. All righ ts reserved. This information is [...] ty. She was seeing Devora Roth at [facility]. Had a psychiatrist in [place] that was helping her before she moved to [place]. 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 depression: Patient presents to clinic, and reports that she is having depression. She was t arnold Moon for her depression which was prescribed by Dr. Mcmahan at [facility]. She reports she has stopped due to the medication making her have suicidal thoughts. Sh sanjuana was seen by Dr. Jacquie Rojas in [place] she reports she was prescribed by him, Sertra line 100 mg 2 pills daily, Clonidine 0.1 mg 2 HS daily, and Aripiprazole 5 mg daily. She rep orts these medications helped her. She reports she was still working on titration of the Danny piprazole when she left [place]. Depression/Anxiety: Patient is here for evaluation of [...] PHQ9 SCORE Office Visit from 04/07/2019 in [facility] Initial from 07/06/2018 in [facility] PHQ-9 Total Score (Patient Health Questionnaire) 25 9 ANXIETY/STRESS SCORE Office Visit from 04/07/2019 in [facility] Initial from 07/06/2018 in [facility] GORDON-7 Score (General Anxiety Disorder) 21 14 Past Medical History: Diagnosis Date Anxiety Asthma Back pain Bipolar affective (HCC) Depression Environmental allergies Manic depression (HCC) Tachycardia Past Surgical History: Procedure Laterality Date DENTAL SURGERY TONSILLECTOMY AND ADENOIDECTOMY N/A 05/15/2015 Procedure: Tonsillectomy; Surgeon: Alberto Munoz MD; Location: [facility] MAIN OR UPPER GASTROINTESTINAL ENDOSCOPY Family History [...] baby is Evan - Currently employed at [employer]. reports that she has been smoking. She [...] Portions of this report were transcribed using [employer] voice recognition soft zamorano. Although effort was [...]
--- OUTSIDE RECORDS SUMMARY | ~2020-02-26 | XMS | Encounter Summary ---
Demographics + + + | Address | [address] | | | [place] [address] | + + + | Home Phone [...] | [facility] | [...] Apt | | | | | [address] [place] | | | | | [address] | | + + + + + Care Team Providers + +------+ + | Care Breakfast Host Name | Role | Phone | + +------+ + | No, Physician | PCP | Unavailable | + +------+ + Reason for Visit + + + | Reason | Comments | + + + | Medication | | | Management | | + + + Encounter Details +--------+ + + + + | Date | Type | Department | Care Team | Description | +--------+ + + + + | 04/06/ | Telephone | [facility] [place] [facility] | No, Physician p | Medication | | 2019 | | [facility] [place] | | Management | | | | [address] | | | | | | [place], [place] | | | | | | [address] | | | | | | [phone] | | | +--------+ + + + [...]
--- OUTSIDE RECORDS SUMMARY | ~2020-02-26 | XMS | Encounter Summary ---
Demographics + + + | Address | [address] | | | [place] [address] | + + + | Home Phone [...] | Author | [facility] | | [...] [address] | | | | | [address] | | + + + + + Care Team Providers + +------+ + | Care Tree Killer Name | Role | Phone | + +------+ + | No, Physician | PCP | Unavailable | + +------+ + Encounter Details +--------+ + + + + | Date | Type | Department | Care Team | Description | +--------+ + + + + | 07/05/ | [facility] | [facility] | Angel Talamantes, | Positive | | 2018 | Encounter | MED CTR ULTRASOUND | MD [address] | test | | | | [address] [place] | [place] | | | | | [place] | [address] | | | | | [address] | | | | | | [phone] | | | +--------+ + + + [...] | + +--------+ + + + | US OB < 14 WEEKS W | Routin | 07/05/2018 | Positive | Results for this | | TRANSVAGINAL | e | 2:33 PM | test | procedure are in the | | | | PDT | | results section. | + +--------+ + + + documented in this encounter Results US OB < 14 Weeks W Transvaginal [...] 2.7 x 2.6 x 1.9 cm. Adnexa: PxgmtxApo-xk-alo: | | NormalIMPRESSION -Single living intrauterine with [...] Diagnosis | + + | Positive test examination or test, positive result | + + documented in this encounter"
--- OUTSIDE RECORDS SUMMARY | ~2020-02-26 | XMS | Encounter Summary ---
Demographics + + + | Address | [address] | | | [place] [address] | + + + | Home Phone [...] + | Author | [facility] | | | and [place] | + + + | Organization | [facility] | | | and [...] [id number] [place] | | | | | [address] | | + + + + + Care Team Providers + +------+ + | Care Tar Boiler Name | Role | Phone | + +------+ + PCP | Unavailable | + +------+ + Encounter Details +--------+ + + + + | Date | Type | Department | Care Team | Description | +--------+ + + + + | 03/10/ | Hospital | [facility] | Sanjeev Viera, | | | 2004 | Encounter | MED CTR LABORATORY | [address] | | | | | [address] | [place] | | | | | [place] | [address] | | | | | [address] | | | | | | [phone] | | | +--------+ + + + [...]
--- OUTSIDE RECORDS SUMMARY | ~2020-02-26 | XMS | Encounter Summary ---
Demographics + + + | Address | [address] | | | [place] [address] | + + + | Home Phone | | + + + | Preferred Language | Unknown | + + + | Marital Status | Single | + + + | Scientology Affiliation | Unknown | + + + | Race | Unknown | + + + | Ethnic Group | Unknown | + + + Author + + + | Author | [facility] | | | and [...] [address] [place] | | | | | [address] | | + + + + + Care Team Providers + +------+ + | Care Movie Operator Name | Role | Phone | + +------+ + | No, Physician | PCP | Unavailable | + +------+ + Encounter Details +--------+ + + + + | Date | Type | Department | Care Team | Description | +--------+ + + + + | 07/05/ | [facility] | [facility] | Angel Talamantes, | Positive | | 2018 | Encounter | MED CTR ULTRASOUND | MD [address] | test | | | | [address] [place] | [place] | | | | | [place] | [address] | | | | | [address] | | | | | | [phone] | | | +--------+ + + + [...] 2.7 x 2.6 x 1.9 cm. Adnexa: UmbnzdKtl-gw-ixo: | | NormalIMPRESSION -Single living intrauterine with [...]
--- OUTSIDE RECORDS SUMMARY | ~2020-02-26 | XMS | Encounter Summary ---
Demographics + + + | Address | [address] | | | [place] [address] | + + + | Home Phone [...] | Author | [facility] | | | and [place] [...] [address] | | | | | [address] | | + + + + + Care Team Providers + +------+ + | Care Navigating Officer Name | Role | Phone | + [...] (lab | | 2018 | | [facility] [place] | [address] | results) | | | | [address] | [place] | | | | | [place], [place] | [address] | | | | | [address] | | | | | | [phone] | | | +--------+ + + + [...]
--- OUTSIDE RECORDS SUMMARY | ~2020-02-26 | XMS | Clinical Summary ---
Demographics + + + | Address | [address] | | | [place] [address] | + + + | Home Phone [...] | | [place] | | [place] [address] | | + + + + + Care Team Providers + +------+ + | Care Ticket Printer Name | Role | Phone | + +------+ + PCP | Unavailable | + +------+ + Source Comments JAHAIRA is fully live on both [facility] Ambulatory and [facility] InPatient.[facility] Allergies Not on File Medications Not on [...] | | al/Fam | | 1901 | [phone] | [place] | | | [place] | | | [address] (Home) | [address] | + +--------+ +--------+ + +"
--- OUTSIDE RECORDS SUMMARY | ~2020-02-26 | XMS | Clinical Summary ---
Demographics + + + | Address | [address] | | | [place] [address] | + + + | Home Phone | | + + + | Preferred Language | Unknown | + + + | Marital Status | Single | + + + | Adventism Affiliation | Unknown | + + + | Race | Unknown | + + + | Ethnic Group | Unknown | + + + Author + + + | Author | [facility] | | | and [place] | + + + | Organization | [facility] | | | [...] [place] | | | | | [address] | | + + + + + Care Team Providers + +------+ + | Care Police Or Patrol Park Officer Name | Role | Phone | [...] patient | | make her appointment with [facility] to start | | counseling. [...] +--------+-------+---------+--------+ | COORDINATED CARE | COORDI | [id number] | 03/18/20 | | | Medica | [...] +--------+-------+---------+--------+ | COORDINATED CARE | COORDI | [id number] | 10/18/19 | | | Medica | [...] | Self | [birth year] | [address] | | [place] | al/Fam | | 1994 | [phone] | [place] | | | [place] | | | 2 (Home) | [address] | + +--------+ +--------+ + + Advance Directives + + + + + | Type | Date Recorded | Patient | Explanation | | | | Waste Machine Tender | | + + + + + | Power of | | | | | Cargo Mate | | | | + + + + + | Power of | | | | | Cargo Mate | | | | + + + [...]
--- OUTSIDE RECORDS SUMMARY | ~2020-02-26 | XMS | Clinical Summary ---
Demographics + + + | Address | [address] | | | [place] [address] | + + + | Home Phone | | + + + | Preferred Language | Unknown | + + + | Marital Status | Single | + + + | Anabaptism Affiliation | Unknown | + + + | Race | Unknown | + + + | Ethnic Group | Unknown | + + + Author + + + | Author | [facility] (Historical as of | | | 06-03-19) | + + + | Organization | [facility] (Historical as of | | | 06-03-19) | + + + | Address | Unknown | + + + | Phone | Unavailable | + + + Support + + + + + | Name | Relationship | Address | Phone | + + + + + | Grass,Paty S | ECON | [address] | | | | | [place] [address] | | + + + + + Care Team Providers + +------+ + | Care Drum Cleaner Name | Role | Phone | [...]
--- OUTSIDE RECORDS SUMMARY | ~2020-02-26 | XMS | Encounter Summary ---
Demographics + + + | Address | [address] | | | [place] [address] | + + + | Home Phone | | + + + | Preferred Language | Unknown | + + + | Marital Status | Single | + + + | Gnosticist Affiliation | Unknown | + + + | Race | Unknown | + + + | Ethnic Group | Unknown | + + + Author + + + | Author | [facility] | | | and [place] | + + + | Organization | [facility] | | [...] [address] [place] | | | | | [address] | | + + + + + Care Team Providers + +------+ + | Care Electronic Tester Name | Role | Phone | + +------+ + | Angel Talamantes MD | PCP | | + +------+ + Encounter Details +--------+ + + + + | Date | Type | Department | Care Team | Description | +--------+ + + + + | 01/12/ | Hospital | [facility] | [place], | | | 2011 | Encounter | MED CTR EMERGENCY | MD [address] | | | | | CENTER [address] | [place] | | | | | [place] | [address] | | | | | [address] | | | | | | [phone] | | | +--------+ + + + [...] Performed At | + + + | [facility] Diagnostic Imaging Department | [place] | | [address] | [place] [facility] | | RIGHT HAND CLINICAL HISTORY: | [...] Transcribed Date/Time: | | | 01/14/2012 09:41 Aircraft Machinist Helper: <Electronically Signed | | | by Renny Reno MD> 01/15/12 0656 | | + + + + + | Procedure Note | + + | Vasiliy, Rad Conversion - 11/24/2013 5:00 PM [facility] | | Diagnostic Imaging Department [address] [facility] [place] | | RIGHT HAND CLINICAL HISTORY: MIDDLE [...] 09:37 | |Transcribed Date/Time: 01/14/2012 09:41 | |Aircraft Machinist Helper: | |<Electronically Signed by Renny Reno MD> [...]
--- OUTSIDE RECORDS SUMMARY | ~2020-02-26 | XMS | Encounter Summary ---
Demographics + + + | Address | [address] | | | [place] [address] | + + + | Home Phone | | + + + | Preferred Language | Unknown | + + + | Marital Status | Single | + + + | Judaism Affiliation | Unknown | + + + | Race | Unknown | + + + | Ethnic Group | Unknown | + + + Author + + + | Author | [facility] | | | and [place] | + + + | Organization | [facility] | | [...] [address] | | | | | [address] | | + + + + + Care Team Providers + +------+ + | Care Glue Maker Bone Name | Role | Phone | + +------+ + PCP | Unavailable | + +------+ + Encounter Details +--------+ + + + + | Date | Type | Department | Care Team | Description | +--------+ + + + + | 02/23/ | Hospital | [facility] | Sanjeev Viera, | | | 2004 | Encounter | MED CTR XRAY [address] | | | | | [address] [place] | [place] | | | | | [place], [place] [address] | [address] | | | | | [phone] | | | +--------+ + + + [...]
--- OUTSIDE RECORDS SUMMARY | ~2020-02-26 | XMS | Encounter Summary ---
Demographics + + + | Address | [address] | | | [place] [address] | + + + | Home Phone | | + + + | Preferred Language | Unknown | + + + | Marital Status | Single | + + + | Adventism Affiliation | Unknown | + + + | Race | Unknown | + + + | Ethnic Group | Unknown | + + + Author + + + | Author | [facility] | | | and [place] | + + + | Organization | [facility] | | | [...] [place] | | | | | [address] | | + + + + + Care Team Providers + +------+ + | Care Saddle Maker Name | Role | Phone | + +------+ + | Rach Quinteros MD | PCP | | + +------+ + Encounter Details +--------+ + + + + | Date | Type | Department | Care Team | Description | +--------+ + + + + | 04/18/ | Abstract | [facility] | Rach Quinteros MD | | | 2019 | | [facility] | [address] | | | | | [address] | [place] | | | | | [place] | [address] | | | | | [address] | | | | | | [phone] | | | +--------+ + + + [...]
--- OUTSIDE RECORDS SUMMARY | ~2020-02-26 | XMS | Encounter Summary ---
Demographics + + + | Address | [address] | | | [place] [address] | + + + | Home Phone [...] + + + | Author | [facility] | | | and [place] | + + + | Organization | [facility] | | | [...] [address] | | | | | [address] | | + + + + + Care Team Providers + +------+ + | Care Advertising Associate Name | Role | Phone | + [...] Medication | | 2019 | | [facility] [place] | | Management | | | | [address] | | | | | | [place], [place] | | | | | | [address] | | | | | | [phone] | | | +--------+ + + + [...]
== END 2020-02-27 00:46 | disposition home or self-care (01) ==
LOC: ED 23:43
DX: R10.31 Right lower quadrant pain (principal); R10.32 Left lower quadrant pain; F17.200 Nicotine dependence, unspecified, uncomplicated
CPT/HCPCS: 80053; 81001; 83690; 83735; 84703; 85025; 99284